=== PATIENT | female | born 2000 | race Caucasian/White ===

== ENCOUNTER 2022-03-31 18:54 | Emergency (ER) | payer BC, SELFPAY ==
[2022-03-31 19:10] VITALS: BP 111/75; PULSE 107; RESP 18; TEMP 36.9; O2SAT 100; BMI 18.6
[2022-03-31 20:13] LABS: Appearance Urine Clear (Clear); Bilirubin Urine Negative (Negative); Blood Urine Negative (Negative); Color Urine Yellow (Yellow); Glucose Urine Negative (Negative); Ketones Urine Negative (Negative); Leukocyte Esterase Urine Negative (Negative); Nitrite Urine Negative (Negative); Protein Urine Negative (Negative); Urobilinogen Urine 0.2 (0.2-1.0)
--- NOTE | 2022-03-31 20:36 | CRLHL7_ITS ---
For Patients: As a result of the Century Cures Act, medical imaging exams and procedure reports are released immediately into your electronic medical record. You may view this report before your referring provider. If you have questions, please contact your health care provider. INDICATION: Abdominal pain TECHNIQUE: CT abdomen and pelvis acquired with fifty-six cc Isovue 370 IV contrast. COMPARISON: None. FINDINGS: Lower chest: The visualized lower lungs are aerated. No pleural or pericardial effusion. ABDOMEN: Liver: Normal enhancement. No focal suspicious hepatic lesions. Gallbladder and biliary: Contractor gallbladder normal caliber bile ducts. Spleen: Normal size and enhancement. Pancreas: Normal enhancement without peripancreatic inflammatory changes or ductal dilatation. Adrenal glands: Normal adrenal glands. Kidneys and ureters: Normal enhancement. No radio-opaque calculi. No hydroureteronephrosis. GI tract: The stomach is relatively decompressed. Normal caliber small and large bowel loops. Normal appendix. Vascular structures: Normal caliber abdominal aorta. Lymph nodes: No lymphadenopathy in the abdomen or pelvis by size criteria. Peritoneum: Trace free fluid in the pelvis, likely physiologic. No free air. PELVIS: Genitourinary system: Normal urinary bladder. Large left adnexum cystic lesion measuring up to 11.1 by 7.9 cm and measuring near simple fluid attenuation. This abuts and causes mild mass effect on the uterine fundus as well as the left ovary. Age-appropriate right ovary. SKELETAL STRUCTURES AND SOFT TISSUES: No suspicious lytic or blastic lesions. IMPRESSION: 1. No obstruction. No hydroureteronephrosis. Normal appendix. 2. Large left adnexum cystic focus measuring up to 11 centimeters causing mass effect on the adjacent uterus and left ovary. While this may reflect a left ovarian cyst, further characterization is recommended with dedicated non emergent pelvic MRI with and without intravenous contrast. Please note that all CT scans at this facility use dose modulation, iterative reconstruction, and/or weight-based dosing when appropriate to reduce radiation dose to as low as reasonably achievable. Dictated by Magdaleno Francis MD @ 03/31/2022 9:33:28 PM (Electronically Signed)
--- NOTE | 2022-03-31 20:38 | ED_ITS ---
HPI - Abdominal Pain General Chief Complaint: Abdominal Pain Stated Complaint: Abdominal Pain Time Seen by Provider: 03/31/22 20:20 History of Present Illness HPI narrative: This 21-year-old female comes in with her mother reporting crampy abdominal pain episodes. These have been happening over the past couple months but of worsened recently. Today she was on the floor curled up crying in pain. She does not report any nausea, vomiting, fever, dysuria, or diarrhea. She states that the episodes of pain can last for a minute or so or for hours. She also reports that certain movements or position can reproduce this pain. Related Data Home Medications Medication Instructions Recorded Confirmed Advil 03/31/22 Allergies Allergy/AdvReac Type Severity Reaction Status Date / Time No Known Drug Allergies Allergy Verified 03/31/22 19:15 Review of Systems Status of ROS Reports: 10 or more systems reviewed and unremarkable except as noted in History and below Narrative Constitutional: No fevers, no weight gain or loss. Eyes: No discharge. No vision changes. HENT: No congestion, no sore throat, no ear pain. Cardiovascular: No chest pain, no palpitations. Respiratory: No shortness of breath, no wheezes, no cough. Gastrointestinal: No vomiting, no diarrhea. Crampy abdominal pain as described above. Genitourinary: No dysuria, no hematuria. Musculoskeletal: Normal range of motion. Skin: No rashes, no pruritis. Neurological: No dizziness, weakness, sensory change, speech change. Endo/Heme/Allergies: No bruising or bleeding. No polydipsia. Pysch: no suicidality, no anxiety, no insomnia. All other systems reviewed and are negative. PFSH [facility] Social History Smoking Status: Former smoker How often do you have a drink containing alcohol: never AUDIT-C Alcohol total score: 0 Non-prescribed substance use: denies use Exam Narrative: Exam Narrative: Constitutional: Well-developed, well-nourished, no acute distress. HEENT: Normocephalic, atraumatic. Neck: Normal range of motion. Nontender. Supple. Heart: Regular. No murmurs. Normal rate. Intact distal pulses. Lungs: Clear to auscultation. No chest discomfort. No wheezes, rhonchi, or rales. Abdomen: Normal bowel sounds. Tenderness is localized over the left lower abdomen in the area of her ovary. No rebound tenderness. Genitalia: Deferred. Back: No midline tenderness. Normal range of motion. Extremities: Normal range of motion. No injury. Skin: Intact. No rash. Warm. No erythema or pallor. Neurologic: No altered sensation. No weakness. Alert and oriented. Psychiatric: No suicidality. No anxiety or depression. No insomnia. Nursing notes and vitals signs are reviewed. Const: Vital Signs, click to edit/add: Vital Signs - 24 hr 03/31/22 19:10 03/31/22 21:24 Temperature 98.5 F Pulse Rate [Left P ulse Oximeter] 107 H 89 Respiratory Rate 18 Blood Pressure [Ri ght Upper Arm] 111/75 123/69 Pulse Oximetry 100 100 Oxygen Delivery Me thod Room Air Course Vital Signs Vital signs: Initial Vital Signs Temperature 98.5 F 03/31/22 19:10 Temperature Source Oral 03/31/22 19:10 Pulse Rate 107 H 03/31/22 19:10 Respiratory Rate 18 03/31/22 19:10 Blood Pressure 111/75 03/31/22 19:10 Blood Pressure Mean 87 03/31/22 19:10 Blood Pressure Position Sitting 03/31/22 19:10 Pulse Oximetry 100 03/31/22 19:10 Vital Signs Temperature 98.5 F 03/31/22 19:10 Pulse Rate 107 H 03/31/22 19:10 Respiratory Rate 18 03/31/22 19:10 Blood Pressure 111/75 03/31/22 19:10 Pulse Oximetry 100 03/31/22 19:10 Temperature 98.5 F 03/31/22 19:10 Pulse Rate 89 03/31/22 21:24 Respiratory Rate 18 03/31/22 19:10 Blood Pressure 123/69 03/31/22 21:24 Pulse Oximetry 100 03/31/22 21:24 Oxygen Delivery Method 03/31/22 21:24 MDM - Abdominal Pain MDM Narrative Medical decision making narrative: This patient comes in with episodes of abdominal pain over the past couple months. Today she had very severe pain that lasted for a while and then completely resolved. An IV was established and labs were drawn. These returned with normal results. CT imaging of the abdomen and pelvis shows evidence of a large simple cyst in the pelvis measuring 11 x 7 cm. I contacted the [facility] physician on-call who will be happy to see the patient in clinic for further management. At the time of discharge the patient appears safe for outpatient management. The treatment plan is reviewed along with written and verbal return precautions. Reasons to return and the importance of close followup were also reviewed. She received prescriptions for Toradol and [place]. Lab Data Labs: Lab Results 03/31/22 03/31/22 03/31/22 Range/Units 19:20 20:45 20:45 WBC 6.97 (4.50-11.00) K/uL RBC 4.77 (4.00-5.20) m/uL Hgb 14.7 (12.0-16.0) gm/dL Hct 41.7 (33.0-51.0) % MCV 87 (80-100) fL MCH 31 (26-34) pg MCHC 35 (32-36) gm/dL RDW Coeff of Ti 11.5 (11.5-15.5) % Plt Count 285 (140-440) K/uL Neut % (Auto) 66.3 (42.0-72.0) % Lymph % (Auto) 25.3 (20-44) % Dare % (Auto) 6.6 (0.0-11.0) % Eos % (Auto) 1.1 (0.0-7.0) % Baso % (Auto) 0.6 (0.0-3.0) % Neut # (Auto) 4.62 (1.7-7.0) K/uL Lymph # (Auto) 1.76 (0.90-2.90) K/uL Dare # (Auto) 0.50 (0.00-0.90) K/UL Eos # (Auto) 0.08 (0.00-0.50) K/uL Baso # (Auto) 0.04 (0.00-0.30) K/uL Sodium 139 (135-149) mmol/L Potassium 3.6 (3.6-5.1) mmol/L Chloride 106 (96-114) mmol/L Carbon Dioxide 24 (20-32) mmol/L BUN 8 (5-24) mg/dL Creatinine 0.7 (0.6-1.2) mg/dL Estimated Creat Clear 106.45 Estimated GFR 128 ml/min Glucose 95 (60-115) mg/dL Calcium 9.6 (8.7-10.8) mg/dL C-Reactive Protein < 0.5 L (0.5-1.0) mg/dL HCG, Qual Negative (Negative) Urine Color Yellow (Yellow) Urine Appearance Clear (Clear) Urine pH 7.0 (5.0-8.5) Ur Specific [place] 1.020 (1.000-1.030) Urine Protein Negative (Negative) Urine Glucose (UA) Negative (Negative) Urine Ketones Negative (Negative) Urine Blood Negative (Negative) Urine Nitrite Negative (Negative) Urine Bilirubin Negative (Negative) Urine Urobilinogen 0.2 (0.2-1.0) Ur Leukocyte Esterase Negative (Negative) Imaging Data CT scan - abdomen: Radiologist's impression: 1. No obstruction. No hydroureteronephrosis. Normal appendix. 2. Large left adnexum cystic focus measuring up to 11 centimeters causing mass effect on the adjacent uterus and left ovary. While this may reflect a left ovarian cyst, further characterization is recommended with dedicated non emergent pelvic MRI with and without intravenous contrast. Discharge Plan Discharge Clinical Impression: Ovarian cyst Patient Disposition: Home w/ Parent or Adult Condition: Stable Additional Instructions: Follow-up with OBGYN clinic. Call for appointment. Use medication as needed and directed. Return if worsening symptoms happen. Prescriptions: No Action Advil Follow Up/Referrals: Provider,Not a Local [Primary Care Provider] - Stand Alone Forms: [employer] Info Instructions
[2022-03-31 20:49] LABS: HCG Qualitative* Negative (Negative)
[2022-03-31 20:58] LABS: Basophils Absolute Auto 0.04 K/uL (0.00-0.30); Basophils Percent Auto 0.6 % (0.0-3.0); Eosinophils Absolute Auto 0.08 K/uL (0.00-0.50); Eosinophils Percent Auto 1.1 % (0.0-7.0); Hematocrit 41.7 % (33.0-51.0); Hemoglobin* 14.7 gm/dL (12.0-16.0); Immature Granulocytes Abs Auto 0.01 K/uL (0.00-0.30); Immature Granulocytes Pct Auto 0.1 %; Lymphocytes Absolute Auto 1.76 K/uL (0.90-2.90); Lymphocytes Percent Auto 25.3 % (20-44); Mean Corpuscular HGB Conc 35 gm/dL (32-36); Mean Corpuscular Hemoglobin 31 pg (26-34); Mean Corpuscular Volume 87 fL (80-100); Monocytes Percent Auto 6.6 % (0.0-11.0); Neutrophils Absolute Auto 4.62 K/uL (1.7-7.0); Neutrophils Percent Auto 66.3 % (42.0-72.0); Platelet Count* 285 K/uL (140-440); RDW Coefficient of Variation % 11.5 % (11.5-15.5); Red Blood Count 4.77 m/uL (4.00-5.20); White Blood Count* 6.97 K/uL (4.50-11.00)
[2022-03-31 21:06] LABS: Slide Review Reflex No
[2022-03-31 21:24] VITALS: BP 123/69; PULSE 89; O2SAT 100
[2022-03-31 21:32] LABS: Chloride* 106 mmol/L (96-114); Potassium* 3.6 mmol/L (3.6-5.1); Sodium* 139 mmol/L (135-149)
[2022-03-31 21:35] LABS: Blood Urea Nitrogen* 8 mg/dL (5-24); Carbon Dioxide* 24 mmol/L (20-32); Creatinine* 0.7 mg/dL (0.6-1.2); Est. Creatinine Clearance* 106.45; Estimated Glomerular Filt Rate 128 ml/min
[2022-03-31 21:36] LABS: Calcium* 9.6 mg/dL (8.7-10.8); Glucose* 95 mg/dL (60-115)
[2022-03-31 21:39] LABS: C Reactive Protein* < 0.5 mg/dL (0.5-1.0)
== END 2022-03-31 22:45 | disposition home or self-care (01) ==
PROVIDERS: Emergency Provider Emergency Medicine Emergency Medical Services
DX: N83.202 Unspecified ovarian cyst, left side (principal)
CPT/HCPCS: 36415; 74177; 80048; 81003; 84703; 85025; 86140; 99284; Q9967

== ENCOUNTER 2022-04-01 13:11 | Inpatient (IN) | payer BC, SELFPAY ==
[2022-04-01] VITALS (16 sets, daily range): BP systolic 100–120; BP diastolic 57–89; PULSE 69–128; RESP 12–16; TEMP 36.3–37; O2SAT 93–100; BMI 18.6
--- NOTE | 2022-04-01 14:38 | ED_ITS ---
HPI - Abdominal Pain General Chief Complaint: Abdominal Pain Stated Complaint: Ovarian Cyst, Pain is worse and vomiting Time Seen by Provider: 04/01/22 13:43 History of Present Illness HPI narrative: This 21-year-old female returns after a visit last night where was discovered that she had a large simple cyst in her abdomen apparently on the left ovary. The cyst measured 7 x 11 cm. She was having occasions of pain related to this and so was discharged home after consulting with OBGYN physician on-call. She received prescriptions for [place] and Toradol. She took these medicines but states that she did not sleep well through the night and has had some episodes of severe pain with nausea and vomiting. She returns today because her symptoms have worsened. Related Data Home Medications Medication Instructions Recorded Confirmed Advil 03/31/22 hydrocodone-acetaminophen .ROUTE 04/01/22 ketorolac 10 mg tablet 10 mg PO Q8H 04/01/22 04/01/22 Allergies Allergy/AdvReac Type Severity Reaction Status Date / Time No Known Drug Allergies Allergy Verified 03/31/22 19:15 Review of Systems Status of ROS Reports: 10 or more systems reviewed and unremarkable except as noted in History and below Narrative Constitutional: No fevers, no weight gain or loss. Eyes: No discharge. No vision changes. HENT: No congestion, no sore throat, no ear pain. Cardiovascular: No chest pain, no palpitations. Respiratory: No shortness of breath, no wheezes, no cough. Gastrointestinal: Episodes of severe abdominal pain with nausea and vomiting. Genitourinary: No dysuria, no hematuria. Musculoskeletal: Normal range of motion. Skin: No rashes, no pruritis. Neurological: No dizziness, weakness, sensory change, speech change. Endo/Heme/Allergies: No bruising or bleeding. No polydipsia. Pysch: no suicidality, no anxiety, no insomnia. All other systems reviewed and are negative. PFSH PFSH Social History Smoking Status: Former smoker How often do you have a drink containing alcohol: never AUDIT-C Alcohol total score: 0 Non-prescribed substance use: denies use Exam Narrative: Exam Narrative: Constitutional: Well-developed, well-nourished. HEENT: Normocephalic, atraumatic. Neck: Normal range of motion. Nontender. Supple. Heart: Regular. No murmurs. Tachycardia. Intact distal pulses. Lungs: Clear to auscultation. No chest discomfort. No wheezes, rhonchi, or rales. Abdomen: Normal bowel sounds. Diffuse tenderness in the lower abdomen. Genitalia: Deferred. Back: No midline tenderness. Normal range of motion. Extremities: Normal range of motion. No injury. Skin: Intact. No rash. Warm. No erythema or pallor. Neurologic: No altered sensation. No weakness. Alert and oriented. Psychiatric: No suicidality. No anxiety or depression. No insomnia. Nursing notes and vitals signs are reviewed. Const: Vital Signs, click to edit/add: Vital Signs - 24 hr 04/01/22 14:06 04/01/22 15:07 04/01/22 15:30 Temperature 98.6 F Pulse Rate 69 93 Pulse Rate [Pulse Oximeter] 128 H Blood Pressure [Ri ght Upper Arm] 120/89 Pulse Oximetry 98 100 99 Oxygen Delivery Me thod Room Air Course Vital Signs Vital signs: Initial Vital Signs Temperature 98.6 F 04/01/22 14:06 Temperature Source Temporal Artery Scan 04/01/22 14:06 Pulse Rate 128 H 04/01/22 14:06 Blood Pressure 120/89 04/01/22 14:06 Blood Pressure Mean 99 04/01/22 14:06 Blood Pressure Position Sitting 04/01/22 14:06 Pulse Oximetry 98 04/01/22 14:06 Oxygen Delivery Method 04/01/22 14:06 Vital Signs Temperature 98.6 F 04/01/22 14:06 Pulse Rate 128 H 04/01/22 14:06 Blood Pressure 120/89 04/01/22 14:06 Pulse Oximetry 98 04/01/22 14:06 Oxygen Delivery Method 04/01/22 14:06 Temperature 98.6 F 04/01/22 14:06 Pulse Rate 93 04/01/22 15:30 Blood Pressure 120/89 04/01/22 14:06 Pulse Oximetry 99 04/01/22 15:30 Oxygen Delivery Method 04/01/22 14:06 MDM - Abdominal Pain MDM Narrative Medical decision making narrative: This patient has recurring and worsening abdominal pain related to a large simple cyst in her left lower quadrant. She returns stating that the pain medicine did not help her through the night and she has had some episodes of intractable pain with nausea and vomiting. I contacted the OBGYN physician on- call, Dr. Cazares, who will come in to arrange for surgical removal of the cyst. The patient may be having intermittent torsion episodes. An IV was established where the patient did receive Dilaudid 0.5 mg and Zofran 4 mg. Discharge Plan Discharge Clinical Impression: Ovarian cyst Patient Disposition: Admitted As Inpatient Condition: Unchanged
[2022-04-01] MEDS: ONDANSETRON 2 MG/ML inj 4 MG IVP (14:54)
[2022-04-01] MEDS: HYDROmorphone 0.5 mg/0.5 ml inj IVP ×2 (14:54→22:15)
--- NOTE | 2022-04-01 15:45 | P.OBCN_ITS ---
OB - CN: HPI Date of Consult Date Seen: 04/01/22 Consult date: 04/01/22 Requesting Physician: Raffaele Dean MD Primary Care Provider: Kayley Diaz MD Consult Narrative Narrative: The patient is a 21 year old [facility] Social History Smoking Status: Former smoker How often do you have a drink containing alcohol: never AUDIT-C Alcohol total score: 0 Non-prescribed substance use: denies use Meds Home Medications and Allergies Home Medications Medication Instructions Recorded Confirmed Type Advil 03/31/22 History hydrocodone-acetaminophen .ROUTE 04/01/22 History ketorolac 10 mg tablet 10 mg PO Q8H 04/01/22 04/01/22 History Allergies Allergy/AdvReac Type Severity Reaction Status Date / Time No Known Drug Allergies Allergy Verified 03/31/22 19:15 OB - H&P: Exam Physical Exam: Vital signs: Temp Pulse BP Pulse Ox O2 Del Method 98.6 F 69 120/89 100 04/01/22 14:06 04/01/22 15:07 04/01/22 14:06 04/01/22 15:07 04/01/22 14:06
--- NOTE | 2022-04-01 15:46 | P.GYNCN_ITS ---
DIRECTOR OF INSTITUTIONAL RESEARCH - CN: HPI Data of Consult Date Seen: 04/01/22 Requesting Physician: Tavo Walls MD Primary Care Provider: Kayley Diaz MD Consult Narrative Narrative: Vivi Whitehead is a 21 year old female seen by kind request of Dr. Larsen for evaluation of ovarian cyst. She was seen in the ER last night around 8:00 p.m. with complaint of severe pelvic pain. She reports that she has had pain intermittently for several months, but it has become more persistent and severe over time. It was severe enough last night to bring her to the ER. She received narcotic pain medicine and had a CT scan showing an 11 cm cyst in the right adnexal region, simple in appearance. She was treated with narcotics and pain improved. She was discharged with plan to follow up in clinic. However, upon discharge, pain secondarily worsened, and she developed nausea and vomiting. She has only had a couple sips of water today. She is using no contraceptives. [employer] history: G0 Menses have been erratic in cycle length and inconsistent in flow for many years. No history of sexually transmitted infection She is sexually active She is using no contraception cc:: CC: Review of Systems Narrative: No fever Positive for nausea and vomiting Positive for vaginal spotting Positive for erratic menses, occasionally heavy PFSH PFSH Surgical History (Updated 04/01/22 @ 15:50 by Leida Cazares MD) Arm fracture S/P tonsillectomy and adenoidectomy Wrist fracture Family History (Updated 04/01/22 @ 15:51 by Leida Cazares MD) Other Diabetes Osteopenia Rheumatoid arthritis Social History (Updated 04/01/22 @ 15:51 by Leida Cazares MD) Narrative: She lives in [place] with her mother, who accompanies her today. She graduated from [employer]. She will go to [employer] for University in the fall. She does not smoke or use recreational drugs. She drinks alcohol infrequently. Smoking Status: Former smoker How often do you have a drink containing alcohol: never AUDIT-C Alcohol total score: 0 Non-prescribed substance use: denies use Meds Home Medications and Allergies Home Medications Medication Instructions Recorded Confirmed Type Advil 03/31/22 History hydrocodone-acetaminophen .ROUTE 04/01/22 History ketorolac 10 mg tablet 10 mg PO Q8H 04/01/22 04/01/22 History Allergies Allergy/AdvReac Type Severity Reaction Status Date / Time No Known Drug Allergies Allergy Verified 03/31/22 19:15 DIRECTOR OF INSTITUTIONAL RESEARCH - Exam Physical Exam: Vital signs: Temp Pulse BP Pulse Ox O2 Del Method 98.6 F 69 120/89 100 04/01/22 14:06 04/01/22 15:07 04/01/22 14:06 04/01/22 15:07 04/01/22 14:06 Narrative: Physical exam: General: No acute distress Psych: Alert and oriented x3, full affect HEENT: Normocephalic, atraumatic Neck: No cervical adenopathy, no thyromegaly Heart: Regular rate and rhythm, no murmur rub or gallop Lungs: Clear to auscultation bilaterally Abdomen: Hypoactive bowel sounds, rigid, only able to relax abdominal musculature with great difficulty, tenderness to palpation thereafter Skin: No lesions or rashes Lower extremities: No edema or erythema Pelvic exam: Deferred to OR DIRECTOR OF INSTITUTIONAL RESEARCH - Results Labs Labs: Labs from last night: CBC: White count 6.97, hemoglobin 14.7, platelets 285 Normal chemistries HCG negative COVID negative today at 3:[address] of abdomen and pelvis 9:30 p.m. on 03/31/2022: Genitourinary system: Normal urinary bladder. Large left adnexum cystic lesion measuring up to 11.1 by 7.9 cm and measuring near simple fluid attenuation. This abuts and causes mild mass effect on the uterine fundus as well as the left ovary. Age-appropriate right ovary. Imaging CT scan - pelvis: Attestation: I have reviewed the pertinent imaging results. My impression: As above Assessment and Plan Assessment and plan (1) Ovarian cyst: Status: Acute Assessment and Plan: Large left ovarian cyst, with 2 visits to the ER in the last 24 hours for pain. Likely intermittent ovarian torsion. Plan I recommended laparoscopic ovarian cystectomy for management. We discussed risks of procedure, including bleeding/hemorrhage, infection, damage to internal organs, possible loss of involved ovary, risks of anesthesia. We discussed likely postoperative restrictions and precautions. Consent form was reviewed with and signed by patient.
[2022-04-01 15:54] LABS: SARS PCR* Negative SARS-CoV-2 (Negative)
[2022-04-01] MEDS: LACTATED RINGERS 1000 ML 1,000 ML 100 ML IV ×3 (16:41→19:48)
[2022-04-01] MEDS: BUPIVACAINE 0.25% 30 ML 10 ML INJECTION (17:15)
--- NOTE | 2022-04-01 19:45 | W.ANESCHARGE ---
Anesthesia Charges Start Date/Time Anesthesia Start Date: 04/01/22 Anesthesia Start Time: 16:41 Stop Date/Time Anesthesia Stop Date: 04/01/22 Anesthesia Stop Time: 19:42 Summary Emergency: Yes
--- NOTE | 2022-04-01 20:19 | P.GYNPRC_ITS ---
Procedure Note Date Seen: 04/01/22 Procedure Details: PREOPERATIVE DIAGNOSIS: Left adnexal cyst, abdominal pain POSTOPERATIVE DIAGNOSIS: Left ovarian cyst with torsion of left fallopian tube PROCEDURE: Laparoscopic left ovarian cystectomy SURGEON: Leida Cazares MD ANESTHESIA: General IV FLUIDS: 1000 mL crystalloid URINE OUTPUT: 200 mL EBL: 100 mL FINDINGS: 1. Upon pelvic exam under anesthesia, vagina and cervix were normal in appearance. 2. Upon laparoscopy, survey of the upper abdomen revealed a normal appearance to the inferior edge of the liver, gallbladder and stomach. Bowels were grossly normal appearance, as was the appendix. Survey of the pelvis revealed a large left ovarian cyst filling the pelvis, lying on top of the uterus. The left fallopian tube was wrapped 2 times around the base of the infundibulopelvic ligament on the left. The left ovarian cyst itself was approximately 12 cm in greatest dimension and appeared to be simple, containing clear fluid. There was normal appearance to the uterus. After left tube was untwisted, it appeared healthy. Right tube and ovary were normal in appearance. The cul-de-sac and bladder reflection were normal in appearance. 3. There was a 1 cm umbilical hernia noted at time of laparoscopic entry. COMPLICATIONS: None PROCEDURE IN DETAIL: Patient was taken to the operating room with IV running. She was positioned in dorsal lithotomy position with her legs fully supported in Yellofin stirrups. General anesthesia was administered. She was prepped and draped in the usual sterile fashion. Bimanual exam was performed for the above- noted findings. Speculum was inserted. A single-toothed uterine manipulator was inserted through the cervix into the lower uterine segment, and affixed to the anterior cervical lip. Speculum was removed. Lakhani catheter was placed. Patient's legs were placed in neutral position. Attention was turned to patient's abdomen. The infraumbilical area was infiltrated with small amount of Marcaine. An infraumbilical incision was made with a scalpel and carried through to the underlying layer of fascia with a hemostat. Umbilical hernia was noted at that time. The 5 mm Fios Kii trocar was assembled with laparoscope within, and insufflator attached. While tenting up the abdomen manually, the trocar was passed through the anterior abdominal wall, through the small umbilical hernia and into the peritoneal cavity. Trocar was removed. Pneumoperitoneum was achieved. Survey of abdomen and pelvis revealed the above-noted findings. Three additional port sites were created. The first was in the patient's left lower quadrant, just superior medial to the left ASIS. The second was a hand's breath superior to and slightly medial to the first. The third was in the patient's right lower quadrant, just superior medial to the right ASIS. Each was infiltrated with small amount of Marcaine prior to incision. An 11 mm incision was made at the left lower quadrant port site, and a 5 mm incision was made at the other 2 sites, making sure the large vessels were out of harm's way. An 11 mm Fios Kii port was inserted at the left lower quadrant port site, and a 5 mm Fios Kii port was inserted at the other 2 sites, under direct visualization and without complication. The balloon on each of the four ports was inflated, holding each in place. The left fallopian tube was untwisted from the left infundibulopelvic ligament. The ovarian cortex was incised sharply, and the cortex was dissected bluntly away from the underlying cyst. The cyst was ruptured in the process. The cyst wall was then grasped and was painstakingly peeled from the surrounding ovarian cortex, releasing clear fluid during this time. Their portions of the cyst that were densely adherent to the surrounding ovarian stroma. Ultimately, the Thunderbeat device was used to divide the remaining cyst wall from the ovary, taking only a small portion of ovarian cortex in the process. This was removed from the abdomen and sent to pathology for further analysis. The bed of dissection in the left ovarian cortex was oozing diffusely. This was painstakingly addressed with monopolar cautery, then coated with Rosmery hemostatic agent. All instruments were removed from the abdomen and the abdomen was desufflated for 5 minutes to confirm that there was no heavy bleeding from the dissection site. Findings were reassuring upon reestablishment of pneumoperitoneum. The left lower quadrant port was removed. The fascia of the site was closed with 2 interrupted stitches of 0 Vicryl with the help of a Raymundo-Rachel device. The umbilical port was also removed, and the underlying fascia was closed with a single stitch of 0 Vicryl at that site. The remaining ports were removed after pneumoperitoneum was released. The skin of each port site was closed with a subcuticular stitch of 4 0 Vicryl. Surgical glue was applied above that. Patient's legs were again placed in lithotomy position. The uterine manipulator was removed and hemostasis of the cervix was noted. Lakhani catheter was removed. Patient tolerated procedure well and was taken to recovery area in stable condition.
[2022-04-01] MEDS: KETOROLAC 30 MG/ML inj IVP (21:09)
--- NOTE | 2022-04-01 22:59 | PC.NURSE ---
Shift [id number]- Patient arrives from [facility] at approximately 2015. She is very sleepy (rouses and falls right back to sleep) and denies pain for the first couple of hours. She is slightly more wakeful now and admits to pain- PRN pain medication given with relief. Parents in the room and supportive. Ice pack to abdomen. Lap sites are open to air and no drainage. Bowel sounds are hypoactive after arrival. She is tolerating ice chips- has been offered to advance diet, but has not. She has not voided or gotten out of bed yet. MD contacted- see orders and admission status update.
[2022-04-01] MEDS: OXYCODONE 5 MG TABLET PO (23:31)
[2022-04-02] VITALS (18 sets, daily range): BP systolic 85–121; BP diastolic 43–74; PULSE 64–114; RESP 12–18; TEMP 36.2–37.3; O2SAT 95–100
[2022-04-02] MEDS: HYDROmorphone 0.5 mg/0.5 ml inj IVP ×2 (00:48→17:45)
--- NOTE | 2022-04-02 05:53 | PC.NURSE ---
[id number]: patient tolerated crackers and water PO w/o nausea. appears to have slept soundly overnight. pain improved with medication, see EMAR. lap sites c/d/i with small amount old blood.
[2022-04-02] MEDS: OXYCODONE 5 MG TABLET PO ×5 (06:23→23:53)
[2022-04-02] MEDS: ACETAMINOPHEN 500 MG TABLET 1000 MG PO ×2 (06:53→17:16)
--- NOTE | 2022-04-02 08:26 | PM.GYNDS1 ---
DS: Providers Provider Date Seen: 04/05/22 Primary care physician: Kayley Diaz MD Admitting Clinician: Leida Cazares MD Date of Discharge: 04/05/22 DS: Diagnosis Discharge Diagnosis (1) Ovarian cyst: Status: Acute (2) Torsion of fallopian tube: Status: Acute (3) S/P laparoscopy: Status: Acute Problem details: laparoscopic ovarian cystectomy 04/01/22, complicated by intraperitoneal bleeding and need for reoperation for left salpingo-oophorectomy (4) Postoperative pain: Status: Acute LIBRARIAN HELPER-Discharge Summary Hospital Course Hospital Course Narrative: Patient is a 21 year old female admitted on 04/01/2022 for laparoscopic ovarian cystectomy. She had presented twice to the ER with complaint of abdominal pain within a preceding 24 hours. She was found to have a large left adnexal cyst on CT of the pelvis. Indication for surgery: Abdominal pain and ovarian cyst. Procedure performed: Laparoscopic left ovarian cystectomy Intraoperative findings were notable for large left ovarian cyst, simple, containing clear fluid. Left fallopian tube was wrapped twice around the infundibulopelvic ligament. Normal uterus, right ovary, right fallopian tube. She had uncontrolled pain and precipitous drop of hemoglobin on POD#1. CT of abdomen and pelvis showed intraperitoneal hematoma. She had repeat laparoscopy with left salpingo-oophorectomy and evacuation of pelvic hematoma on 04/02/22. She was found to be anemic with a Hb of 8 on POD #1/2, increasing to 8.5 later in the day. She still struggled with pain control. On POD#2/3, she had nausea and continuing difficulties with pain. It was noted that she had not had BM since before admission. She was ultimately treated with Bisacodyl suppository. Vitals have been stable. She has remained afebrile. Time Spent with Patient Time attestation: Total time spent providing and/or coordinating discharge services: Time spent: Less than 30 minutes LIBRARIAN HELPER - Exam Physical Exam: Vital signs: Temp Pulse Resp BP Pulse Ox O2 Del Method 97.7 F 81 16 99/57 L 97 04/02/22 03:00 04/02/22 03:00 04/02/22 03:00 04/02/22 03:00 04/02/22 03:00 04/02/22 03:00 Narrative: General: Pleasant, no acute distress Heart: Regular rate and rhythm, no murmur or gallop Lungs: Clear to auscultation bilaterally Abdomen: Laparoscopic port sites clean, dry, and intact. Normoactive bowel sounds in all 4 quadrants. Appropriately tende Lower extremities: No edema or erythema LIBRARIAN HELPER - DS: Data Data Completed and Pending Labs on day of discharge: Labs from last 24 hours 04/01/22 04/01/22 16:33 15:05 SARS-CoV-2 (PCR) Negative SARS-CoV-2 Blood Type A Positive Antibody Screen NEGATIVE Procedures Procedures: Procedures Operation Date: 04/01/22 17:15 Actual Procedure Side Surgeon p Lap LEFT Ovarian Cystectomy Left Leida Cazares MD Discharge Plan Discharge Disposition: Home, Self-Care Date of Admission: 04/02/22 17:21 Primary Care Provider: Kayley Diaz Condition: Unchanged Anticipated Discharge Date/Time: 04/05/22 19:44 Discharge Medications: New acetaminophen 500 mg Tablet 1,000 mg PO Q6H PRN (Reason: Pain) Qty: 0 0RF ibuprofen 600 mg tablet 600 mg PO Q6H PRNQty: 60 0RF oxycodone 5 mg Tablet 5 mg PO Q4H PRN (Reason: 4 OR GREATER ON PAIN SCALE) Qty: 25 0RF Folitab 105 mg iron- 500 mg-800 mcg tablet extended release 1 tab PO DAILY Qty: 20 0RF Rx Instructions: administer on an empty stomach Discontinued Advil ketorolac 10 mg tablet 10 mg PO Q8H hydrocodone-acetaminophen [[place]] .ROUTE Consulting provider completed their portion of the discharge: Yes Patient Education: Ovarian Cyst Removal (DC), Exploratory Laparoscopy (DC) Activity Detail: No lifting greater than 20 lbs for 4 weeks. Do not submerge incisions under water for [address] taking narcotic pain medicines. Discharge Diet: Regular Follow Up Appointments: Leida Cazares MD [Staff Physician] - 05/01/22 10:45 am (Call if you have any questions.) Provider,Not a Local [Referring] - Forms: Work/School Release
[2022-04-02] MEDS: MORPHINE 4 MG/ML INJ IVP (12:43)
[2022-04-02] MEDS: ONDANSETRON 2 MG/ML inj 4 MG IVP (12:43)
[2022-04-02 13:57] LABS: Basophils Absolute Auto 0.03 K/uL (0.00-0.30); Basophils Percent Auto 0.3 % (0.0-3.0); Eosinophils Absolute Auto 0.04 K/uL (0.00-0.50); Eosinophils Percent Auto 0.4 % (0.0-7.0); Hematocrit 28.6 % (33.0-51.0); Immature Granulocytes Abs Auto 0.02 K/uL (0.00-0.30); Immature Granulocytes Pct Auto 0.2 %; Lymphocytes Percent Auto 19.6 % (20-44); Mean Corpuscular HGB Conc 35 gm/dL (32-36); Mean Corpuscular Hemoglobin 31 pg (26-34); Mean Corpuscular Volume 90 fL (80-100); Monocytes Percent Auto 7.6 % (0.0-11.0); Neutrophils Absolute Auto 7.47 K/uL (1.7-7.0); Neutrophils Percent Auto 71.9 % (42.0-72.0); Platelet Count* 216 K/uL (140-440); RDW Coefficient of Variation % 11.9 % (11.5-15.5); Red Blood Count 3.19 m/uL (4.00-5.20); White Blood Count* 10.38 K/uL (4.50-11.00)
[2022-04-02 14:00] LABS: Slide Review Reflex No
[2022-04-02] MEDS: IBUPROFEN 600 MG TABLET PO (14:04)
--- NOTE | 2022-04-02 15:05 | CRLHL7_ITS ---
For Patients: As a result of the Century Cures Act, medical imaging exams and procedure reports are released immediately into your electronic medical record. You may view this report before your referring provider. If you have questions, please contact your health care provider. Indication: Intraperitoneal bleeding after laparoscopy Technique: Contrast CT abdomen and pelvis Comparison: CT 03/31/2022 Findings: Heart size normal. Lung bases are clear. Large amount of intraperitoneal free air likely postsurgical. Liver pancreas gallbladder adrenal glands unremarkable. Spleen unremarkable kidneys unremarkable. Large volume abdominal pelvic fluid slightly dense most likely reflecting hemorrhage. Minimal subcutaneous air within the left lower abdominal wall most likely postsurgical. Large hematoma in the central posterior pelvis which displaces the uterus anteriorly. Evaluation for active hemorrhage is limited given the suboptimal phase of imaging. There is a grouping of slight density in the right pelvis seen on series 2, image 111 which is indeterminate could be related tangle of vessels active hemorrhage not completely excluded however similar density was seen on the preoperative CT scan from 03/31. Impression: 1. Large volume abdominal pelvic hemorrhage. Large hematoma in the posterior central pelvis which displaces the uterus anteriorly. Evaluation for active hemorrhage limited by phase of contrast imaging. Serpiginous densities in the right pericolic gutter could be related to tangle of vessels active hemorrhage not completely excluded however similar rounded density seen on the pre-surgical CT scan. Results called to Dr. Cazares on 04/02/22 at 5:30pm. Please note that all CT scans at this facility use dose modulation, iterative reconstruction, and/or weight-based dosing when appropriate to reduce radiation dose to as low as reasonably achievable. Dictated by Talita Loo MD @ 04/02/2022 5:30:39 PM (Electronically Signed)
--- NOTE | 2022-04-02 18:24 | P.GYNPN_ITS ---
COPRA SAMPLER - A/P Assessment and plan (1) S/P laparoscopy: Problem details: laparoscopic ovarian cystectomy 04/01/22 Status: Acute (2) Intraperitoneal hemorrhage: Status: Acute Assessment and Plan: With new anemia, hemoglobin 10.0. Currently with stable vital signs. I recommended evacuation of pelvic hematoma and likely removal of left ovary, which I suspect is the cause of bleeding. A We discussed risks of procedure, likely postoperative restrictions and recovery. Consent form reviewed with and signed by patient. (3) Anemia due to acute blood loss: Status: Acute Postoperative Procedures: Procedures Operation Date: 04/01/22 17:15 Actual Procedure Side Surgeon p Juan LEFT Ovarian Cystectomy Left Leida Cazares MD Operation Date: 04/02/22 19:15 <No data on this case meets the specified criteria> Time Spent With Patient Time: Total time spent is greater than 50% in coordination of care (as documented) at patient's floor/unit and/or counseling patient: Time with patient: less than 15 minutes COPRA SAMPLER- PN:Subj Post-Op Subjective Time Seen by Provider: 17:30 Date Seen: 04/02/22 Post Operative Details: Post-operative day number 0: status post laparoscopic left ovarian cystectomy Vivi was initially to be discharged this morning, after eating breakfast and ambulating. However, she was unable to tolerate ambulation. She had increase in pain and felt lightheaded. Thereafter, CBC was ordered, showing her hemoglobin to have dropped from 14.7 on the day before surgery to 10.[address] of abdomen and pelvis was ordered, notable for large blood clot in the pelvis. The radiologist reports that she is uncertain if there is active bleeding or not. Vivi was able to eat at 10:30 a.m. this morning. She has not had nausea or vomiting. She has been using a combination of oxycodone and ibuprofen for pain. COPRA SAMPLER-PN: Obj Exam Physical Exam: Vital signs: Temp Pulse Resp BP Pulse Ox O2 Del Method 97.7 F 103 H 16 91/57 L 98 04/02/22 03:00 04/02/22 07:00 04/02/22 07:00 04/02/22 07:00 04/02/22 07:00 04/02/22 07:00 Narrative: Physical exam: Vitals as noted above. General: No acute distress Psych: Alert and oriented x 3, full affect HEENT: Normocephalic, atraumatic Abdomen: Tender diffusely, rigid, normoactive bowel sounds COPRA SAMPLER - PN: Obj Data Labs Labs: Laboratory Results - last 24 hr 04/02/22 13:52 WBC 10.38 RBC 3.19 L Hgb 10.0 L Hct 28.6 L MCV 90 MCH 31 MCHC 35 RDW Coeff of Ti 11.9 Plt Count 216 Neut % (Auto) 71.9 Lymph % (Auto) 19.6 L [place] % (Auto) 7.6 Eos % (Auto) 0.4 Baso % (Auto) 0.3 Neut # (Auto) 7.47 H Lymph # (Auto) 2.00 [place] # (Auto) 0.80 Eos # (Auto) 0.04 Baso # (Auto) 0.03
[2022-04-02] MEDS: LACTATED RINGERS 1000 ML 1,000 ML 100 ML IV ×3 (18:45→19:51)
[2022-04-02] MEDS: CEFAZOLIN 1 GM in 0.9 % SODIUM CHLORIDE Mini-bag 100 ML IVPB (18:50)
--- NOTE | 2022-04-02 19:50 | SUR.OPER ---
PATIENT QUESTIONS ANSWERED SATISFACTORILY PREOPERATIVELY. PATIENT BROUGHT TO OR #4 PER BED. Patient positioned supine on OR #4 bed for the intubation. Pt. then moved into the lithotomy position for the procedure. Perioperative team padded and tucked the arms at pt. side in a neutral position. Final approval of positioning by surgeon.
[2022-04-02] MEDS: BUPIVACAINE 0.25% 30 ML 10 ML INJECTION (20:01)
[2022-04-02] MEDS: SILVER NITRATE APPLICATOR 1 EACH STICK..EA. TOPICAL (20:09)
--- NOTE | 2022-04-02 20:26 | W.ANESCHARGE ---
Anesthesia Charges Start Date/Time Anesthesia Start Date: 04/02/22 Anesthesia Start Time: 18:44 Stop Date/Time Anesthesia Stop Date: 04/02/22 Anesthesia Stop Time: 20:25 Summary Emergency: Yes
--- NOTE | 2022-04-02 21:12 | PC.NURSE ---
Nursing Care Hours: [id number] Pt this shift cooperative with cares. Pain rated 6-7/10 even with IV and oral pain med options. Attempt to stand while using pillow to splint, pt did not tolerate well. Pain severe, pt began trembling and crying. Unable to stand up without holding onto wall for support. C/o increased pain on L side. Pulse is tachy. Surgeon made aware of pt pain and not tolerating walking. New orders put in, CBC showed decreased blood count and hemoglobin. Pt sent for CT and found to have post op internal bleeding. Taken to surgery at 1830. Surgeon explained to pt and family that L ovary may need to be removed. Pt sad and crying and nervous about going back to surgery. Therapeutic communication and listening provided. Consent signed.
--- NOTE | 2022-04-02 22:23 | P.GYNPRC_ITS ---
Procedure Note Date Seen: 04/02/22 Procedure Details: PREOPERATIVE DIAGNOSIS: Postoperative bleeding after left ovarian cystectomy, with pelvic hematoma noted on CT of pelvis POSTOPERATIVE DIAGNOSIS: Pelvic hematoma, bleeding from left ovary PROCEDURE: Laparoscopic left salpingo-oophorectomy, evacuation of pelvic hematoma SURGEON: Leida Cazares MD ANESTHESIA: General IV FLUIDS: 1000 mL crystalloid URINE OUTPUT: 200 mL EBL: 400 mL, including clotted blood in the pelvis and the ovary FINDINGS: 1. Upon pelvic exam under anesthesia, vagina and cervix were normal in appearance. 2. Upon laparoscopy, bowels were grossly normal appearance. Survey of the pelvis revealed pelvic hematoma in the cul-de-sac, anterior to the uterus, and within the left ovarian cortex. The cortex was bleeding near the infundibulopelvic ligament. The left tube was adherent to the left ovary along its distal end. Uterus was normal appearance. Right tube and ovary were normal in appearance. The cul-de-sac and bladder reflection were normal in appearance after blood was evacuated. COMPLICATIONS: None PROCEDURE IN DETAIL: Patient was taken to the operating room with IV running. She was positioned in dorsal lithotomy position with her legs fully supported in Yellofin stirrups. General anesthesia was administered. She was given a single dose of IV cefazolin in preoperative prophylaxis. She was prepped and draped in the usual sterile fashion. Bimanual exam was performed for the above-noted fi ndings. Speculum was inserted. A single-toothed uterine manipulator was inserted through the cervix into the lower uterine segment, and affixed to the anterior cervical lip. Speculum was removed. Lakhani catheter was placed. Patient's legs were placed in neutral position. Attention was turned to patient's abdomen. The patient had had 4 port sites from her surgery last night. Three of these were used again. The surgical glue at the umbilical port site, the left lower quadrant port site, and the left lateral port site were peeled away as much as possible. The suture material at the skin of each site was cut. The fascial stitches in the umbilical and left lower quadrant port site were also cut. The small umbilical hernia was thus opened, revealing the peritoneal cavity. The 5 mm Fios Kii trocar was assembled with laparoscope within, and insufflator attached. While tenting up the abdomen manually, the trocar was passed through the umbilical hernia into the peritoneal cavity. Trocar was removed. Pneumoperitoneum was achieved. Survey of abdomen and pelvis revealed the above-noted findings. The balloon tip of this trocar was inflated. An 11 mm Fios Kii trocar was inserted in left lower quadrant port site, and a 5 mm inserted at the left lateral abdominal site. Each of these was inserted at this site of yesterday's port placement, under direct visualization without complication. The balloons on the tip of each were inflated. Laparoscopic suction was used to remove the pelvic hematoma and most of the clotted blood within the ovary. Given that ovary was still bleeding, I opted to proceed with oophorectomy. Left fallopian tube was removed due to its adherence to the left ovary. The left ovary was held away from the pelvic sidewall. The Thunderbeat device was used to coagulate and transect the infundibulopelvic ligament. Dissection was carried laterally to medially through the broad ligament, until the left cornua was reached. The left tube was divided at the cornua, as was the left utero-ovarian ligament. The specimen was placed anterior to the uterus. An Endo-Catch bag was inserted through the left lower quadrant port site, and the specimen was placed within the bag. The bag was pulled up through the left lower quadrant port site. Port was removed. The specimen was then removed piecemeal from the bag, ultimately allowing removal of the bag through the port site. The specimen was sent to pathology. The left lower quadrant port was again inserted and balloon tip inflated. The pelvis was copiously irrigated with sterile saline. Hemostasis was noted along the left infundibulopelvic ligament and remnant of the broad ligament. Pneumoperitoneum was released and the balloon tips of all port sites were deflated. The ports were removed. The fascia of the left lower quadrant port site and the umbilical port site were closed with a single stitch of 0 Vicryl. The skin of each port site was closed with a subcuticular stitch of 4 0 Vicryl. Surgical glue was applied above this. Finally, the patient's legs were placed back in lithotomy position. The single- toothed uterine manipulator was removed from the cervix, and hemostasis of the cervix was achieved with silver nitrate. The Lakhani catheter was removed from the patient's bladder. Patient tolerated procedure well and was taken to recovery area in stable condition.
[2022-04-02] MEDS: LACTATED RINGERS 1000 ML 1,000 ML 125 ML IV (22:59)
[2022-04-02 23:22] LABS: Basophils Percent Auto 0.1 % (0.0-3.0); Eosinophils Percent Auto 0.1 % (0.0-7.0); Hematocrit 27.2 % (33.0-51.0); Hemoglobin* 9.5 gm/dL (12.0-16.0); Immature Granulocytes Pct Auto 1.2 %; Lymphocytes Percent Auto 7.6 % (20-44); Mean Corpuscular HGB Conc 35 gm/dL (32-36); Mean Corpuscular Hemoglobin 31 pg (26-34); Mean Corpuscular Volume 90 fL (80-100); Monocytes Percent Auto 2.8 % (0.0-11.0); Neutrophils Percent Auto 88.2 % (42.0-72.0); Platelet Count* 199 K/uL (140-440); RDW Coefficient of Variation % 11.8 % (11.5-15.5); Red Blood Count 3.03 m/uL (4.00-5.20); Slide Review Reflex No; White Blood Count* 11.15 K/uL (4.50-11.00)
[2022-04-03] VITALS (10 sets, daily range): BP systolic 98–130; BP diastolic 48–89; PULSE 76–114; RESP 16–18; TEMP 36.7–37.1; O2SAT 97–99
[2022-04-03] MEDS: KETOROLAC 30 MG/ML inj IVP ×2 (02:31→08:45)
[2022-04-03] MEDS: SODIUM CHLORIDE 0.9 % (FLUSH) 10 ML SYRINGE 5 ML IVF ×3 (02:34→20:16)
[2022-04-03] MEDS: OXYCODONE 5 MG TABLET PO ×4 (06:46→21:55)
--- NOTE | 2022-04-03 08:30 | PC.NURSE ---
END OF SHIFT NOTE: PT PLEASANT AND COOPERATIVE WITH CARES. BACK TO FLOOR 2054. LAP SITES INTACT AND [place]. PT REPORTS PAIN 4/10 TO ABDOMEN WITH RELIEF FROM ICE PACK AND PRN PAIN MEDICATION (SEE eMAR), PT SPLINTING WITH PILLOW WITH ACTIVITY. ADVANCED TO REG DIET AND TOLERATED WELL. AMBULATES WITH SBA TO BATHROOM. PT VOIDING WELL.
[2022-04-03] MEDS: LACTATED RINGERS 1000 ML 1,000 ML 125 ML IV (08:45)
--- NOTE | 2022-04-03 08:57 | PM.GYNPNPO ---
WORKERS COMPENSATION CLAIMS EXAMINER - A/P Assessment and plan (1) S/P laparoscopy: Problem details: laparoscopic ovarian cystectomy 04/01/22 Status: Acute (2) Intraperitoneal hemorrhage: Status: Acute (3) Anemia due to acute blood loss: Status: Acute Plan Postoperative Review: - Admitted for: Ovarian torsion - Surgical procedure: Laparoscopic left ovary cystectomy on 04/01 complicated by continued intraabdominal bleeding S this the taping laparoscopic left salpingo-oophorectomy with evacuation of pelvic hematoma on April 02. - Skin incision: 4 laparoscopic port sites - Closure: Sutures Acute blood loss anemia - Estimated blood loss: 1st surgery: 100cc , 2nd surgery 400cc - Urine output: adequate 1.08 cc/kg/hr - Preop Hgb: 14.7 - Postop Hgb: 10.0 --> 9.5 --> 8.0 --> 8.5 - Benign abdominal exam today. However, uncontrolled pain while ambulating Postoperative care: - Diet: Advance as tolerated - Fluid: Encourage oral intake - Activity: Encourage ambulation and incentive spirometry - Pain: Oxycodone, Tylenol and Ibuprofen - DVT prophylaxis: SCDs and TEDs when not ambulating Dispo: Patient is POD#1. Need the following milestones: Pain control and ambulating without assist. Anticipate discharge POD#2. Postoperative Procedures: Procedures Operation Date: 04/01/22 17:15 Actual Procedure Side Surgeon p Lap LEFT Ovarian Cystectomy Left Leida Cazares MD Operation Date: 04/02/22 19:15 Actual Procedure Side Surgeon p Laparoscopic left salpingo-oophorectomy with evacuation of pelvic hematoma Left Leida Cazares MD Time Spent With Patient Time: Total time spent is greater than 50% in coordination of care (as documented) at patient's floor/unit and/or counseling patient: Time with patient: 25 - 35 minutes WORKERS COMPENSATION CLAIMS EXAMINER- PN:Subj Post-Op Subjective Time Seen by Provider: 08:00 Date Seen: 04/03/22 Post Operative Details: Overnight patient complains of fatigue. Her pain has improved since her second surgery but she still scare to move in anticipating of pain. She is tolerating a regular diet. She has passed flatus. She is not yet ambulating without difficulty. States she's doesn't want to due to the abdominal pain. Will ambulate with assist and then continue to monitor. She is urinating without padilla. Patient denies chest pain, SOB, n/v, or headache. She denies dizziness but haven't ambulated since her surgery. She had soft pressure overnight and tachycardia. Her abdomen is soft with moderate amount of tenderness still. Her hgb is stable currently (hgb 8@0616 and 8.5@1302) WORKERS COMPENSATION CLAIMS EXAMINER-PN: Obj Exam Physical Exam: Vital signs: Temp Pulse Resp BP Pulse Ox O2 Del Method 99.1 F 77 16 98/48 L 99 04/02/22 23:00 04/03/22 03:00 04/03/22 01:00 04/03/22 03:00 04/03/22 03:00 04/03/22 03:00 Narrative: Physical exam: General: No acute distress. Sleepy Psych: Alert and oriented x3, full affect HEENT: Normocephalic, atraumatic Heart: Regular rate and rhythm, no murmur rub or gallop Lungs: Clear to auscultation bilaterally Abdomen: Normoactive bowel sounds, soft, still very tender in lower quandrant, some guarding, no rebound Incision: 4 port sites clean, dry and intact. No spreading erythema Lower extremities: No edema or erythema Pelvic exam: Deferred WORKERS COMPENSATION CLAIMS EXAMINER - PN: Obj Data Labs Labs: Laboratory Results - last 24 hr 04/02/22 04/02/22 04/03/22 13:52 23:10 06:16 WBC 10.38 11.15 H RBC 3.19 L 3.03 L Hgb 10.0 L 9.5 L 8.0 L Hct 28.6 L 27.2 L MCV 90 90 MCH 31 31 MCHC 35 35 RDW Coeff of Ti 11.9 11.8 Plt Count 216 199 Neut % (Auto) 71.9 88.2 H Lymph % (Auto) 19.6 L 7.6 L [place] % (Auto) 7.6 2.8 Eos % (Auto) 0.4 0.1 Baso % (Auto) 0.3 0.1 Neut # (Auto) 7.47 H 9.80 H Lymph # (Auto) 2.00 0.80 L [place] # (Auto) 0.80 0.30 Eos # (Auto) 0.04 0.00 Baso # (Auto) 0.03 0.00
[2022-04-03 13:09] LABS: Hemoglobin* 8.5 gm/dL (12.0-16.0)
--- NOTE | 2022-04-03 15:26 | PC.NURSE ---
Pt rating her pain 4-6 out of 10. Treated with toradol IV and oxycodone 5 mg PO on day shift. Maintenance IVF continues at 125. Parents supportive at bedside. Eval by Dr. Akins in am and again mid-shift. Repeat Hgb 8.5 @ 13:25. Adequate I & O. Pt anxious secondary to increased activity, walked to BR and once in hallway. Report to Sara ARAUJO for eveing shift.
[2022-04-03] MEDS: IBUPROFEN 400 MG TABLET 800 MG PO (17:27)
[2022-04-03] MEDS: LORazepam 2 MG/ML inj IVP (19:22)
[2022-04-03] MEDS: ACETAMINOPHEN 500 MG TABLET 1000 MG PO (19:23)
[2022-04-03] MEDS: ONDANSETRON 2 MG/ML inj 4 MG IVP (20:16)
[2022-04-03] MEDS: SIMETHICONE 80 MG TAB.CHEW 160 MG PO (21:55)
[2022-04-04] MEDS: OXYCODONE 5 MG TABLET PO ×4 (02:01→15:56)
[2022-04-04 03:00] VITALS: BP 98/58; PULSE 95; RESP 14; TEMP 36.7; O2SAT 98
--- NOTE | 2022-04-04 07:06 | PC.NURSE ---
Pt is alert and oriented x3. Pt reports pain 4/10 pain managed with PRN medications. Pt has lap sites that are open to air with scant?amounts of dried blood around them.?Pt is up IND in room and tolerating a regular diet. ?
[2022-04-04] MEDS: IBUPROFEN 400 MG TABLET 800 MG PO ×3 (08:21→18:27)
[2022-04-04 08:23] VITALS: BP 97/64; PULSE 69; PULSE 97; RESP 14; RESP 16; TEMP 36.8; O2SAT 98
--- NOTE | 2022-04-04 08:37 | PC.NURSE ---
LATE ENTRY ORDER: INPATIENT ON 04/02/22 AT 1721 CANCELLED IN ERROR. RE-ENTERED 04/03/22 9178 BY GOURMET COFFEE ATTENDANT.
--- NOTE | 2022-04-04 10:43 | P.GYNPN_ITS ---
SURVEY FIELD TECHNICIAN - A/P Assessment and plan (1) S/P laparoscopy: Problem details: laparoscopic ovarian cystectomy 04/01/22, complicated by intraperitoneal bleeding and need for reoperation for left salpingo-oophorectomy Status: Acute Assessment and Plan: She has had a prolonged inpatient course secondary to difficulties with pain management. Her pain medicines are optimized at this time. I hope for discharge later this afternoon. Given that she has not had a bowel movement for a few days, I favor empiric treatment with bisacodyl suppository. (2) Intraperitoneal hemorrhage: Status: Acute Assessment and Plan: Resolved (3) Anemia due to acute blood loss: Status: Acute Assessment and Plan: Improvement of hemoglobin from 8 to 8.5 over the course of the day yesterday. I will start ferrous sulfate once nightly today. Postoperative Procedures: Procedures Operation Date: 04/01/22 17:15 Actual Procedure Side Surgeon p Lap LEFT Ovarian Cystectomy Left Leida Cazares MD Operation Date: 04/02/22 19:15 Actual Procedure Side Surgeon p Laparoscopic left salpingo-oophorectomy with evacuation of pelvic hematoma Left Leida Cazares MD Time Spent With Patient Time: Total time spent is greater than 50% in coordination of care (as documented) at patient's floor/unit and/or counseling patient: Time with patient: less than 15 minutes SURVEY FIELD TECHNICIAN- PN:Subj Post-Op Subjective Date Seen: 04/04/22 Interval history: Vivi continues to struggle with pain control. She has not used IV morphine for the last day. She reports severe pain upon rising out of bed and she relies on nurses to help her to the bathroom. She is prescribed Tylenol 1 g every 6 hours, ibuprofen 800 mg every 8 hours, and oxycodone 5-10 mg every 4 hours. She is tolerating regular diet. She thinks she is passing flatus. She has not had a bowel movement since hospitalization. She did ambulate in the hallways twice yesterday. Post Operative Details: Post-operative day # 3: status post laparoscopic left ovarian cystectomy Postoperative day #2: status post laparoscopic left salpingo-oophorectomy, evacuation of pelvic hematoma SURVEY FIELD TECHNICIAN-PN: Obj Exam Physical Exam: Vital signs: Temp Pulse Resp BP Pulse Ox O2 Del Method 98.2 F 97 16 97/64 98 04/04/22 08:23 04/04/22 08:23 04/04/22 08:23 04/04/22 08:23 04/04/22 08:23 04/04/22 08:23 Narrative: General: Sleeping when I enter. Pleasant, no acute distress Heart: Regular rate and rhythm, no murmur or gallop Lungs: Clear to auscultation bilaterally Abdomen: Normoactive bowel sounds in all 4 quadrants. Laparoscopic incisions clean, dry, and intact. Soft, not distended, diffusely tender, no rebound, voluntary guarding. Lower extremities: No edema or erythema SURVEY FIELD TECHNICIAN - PN: Obj Data Labs Labs: Laboratory Results - last 24 hr 04/03/22 13:02 Hgb 8.5 L
[2022-04-04] MEDS: ONDANSETRON 2 MG/ML inj 4 MG IVP ×2 (11:17→17:08)
[2022-04-04 11:19] VITALS: BP 110/68; PULSE 97; RESP 16; TEMP 36.6; O2SAT 97
--- NOTE | 2022-04-04 14:19 | PC.NURSE ---
Patient pleasant. Withdrawn from activity. Strongly encouraged throughout shift to ambulate - pt refusing. Pt educated regarding suppository ordered by MD, refusing as this time as she wants to try to have a bowel movement on her own. Encouraged to shower this evening, pt agreed. Pain 5-6/10, controlled with PRN Oxycodone & scheduled Ibuprofen. Lap sites CDI.
[2022-04-04 15:00] VITALS: BP 110/64; PULSE 89; RESP 16; TEMP 36.9; O2SAT 97
[2022-04-04] MEDS: SODIUM CHLORIDE 0.9 % (FLUSH) 10 ML SYRINGE 5 ML IVF ×2 (17:08→21:09)
[2022-04-04] MEDS: polyethylene glycoL 3350 17 GM PACK PO (18:27)
--- NOTE | 2022-04-04 19:34 | PM.GYNPNPO ---
INSULATION AND FLOORING ASSEMBLER - A/P Assessment and plan (1) S/P laparoscopy: Problem details: laparoscopic ovarian cystectomy 04/01/22, complicated by intraperitoneal bleeding and need for reoperation for left salpingo-oophorectomy Status: Acute Assessment and Plan: Prolonged hospitalization due to suboptimal pain control. I suspect some of this is related to constipation. After emesis, I again recommended suppository, and patient agrees. I also recommended walking the halls tonight. I anticipate discharge tomorrow. (2) Intraperitoneal hemorrhage: Status: Acute (3) Anemia due to acute blood loss: Status: Acute Assessment and Plan: I will send her home with iron supplement . Postoperative Procedures: Procedures Operation Date: 04/01/22 17:15 Actual Procedure Side Surgeon p Lap LEFT Ovarian Cystectomy Left Leida Cazares MD Operation Date: 04/02/22 19:15 Actual Procedure Side Surgeon p Laparoscopic left salpingo-oophorectomy with evacuation of pelvic hematoma Left Leida Cazares MD Time Spent With Patient Time: Total time spent is greater than 50% in coordination of care (as documented) at patient's floor/unit and/or counseling patient: Time with patient: less than 15 minutes INSULATION AND FLOORING ASSEMBLER- PN:Subj Post-Op Subjective Time Seen by Provider: 19:34 Date Seen: 04/04/22 Interval history: Vivi has not moved around much today due to pain. She has felt nauseated all day, and has been given antiemetics. She is tolerating a regular diet, and is in the process of eating a cheeseburger and fries when I enter. She thinks she is passing flatus. She has not had BM in 5 days. I wrote for a Bisacodyl suppository, which she declined. She is currently drinking a dose of Miralax. Post Operative Details: Post-operative day number []: status post [] INSULATION AND FLOORING ASSEMBLER-PN: Obj Exam Physical Exam: Vital signs: Temp Pulse Resp BP Pulse Ox O2 Del Method 98.5 F 89 16 110/64 97 04/04/22 15:00 04/04/22 15:00 04/04/22 15:00 04/04/22 15:00 04/04/22 15:00 04/04/22 15:00 Narrative: General: Pleasant, no acute distress. However, she has emesis of about 600 cc in the middle of our conversation Abdomen: Normoactive bowel sounds in all 4 quadrants. Laparoscopic incisions clean, dry, and intact. Soft, not distended, diffusely tender, no rebound, minimal guarding.
--- NOTE | 2022-04-04 20:01 | PC.NURSE ---
End of Shift ([id number]): Patient pleasant and cooperative. Afebrile. Rating pain in abdomen 5-7/10 and PRN Oxycodone given x1. C/o intermittent nausea, PRN Zofran given x1. Encouraged fluid intake and activity. Up for walk in hallway x1. Patient declining suppository at this time, updated MD and order for Miralax.
[2022-04-04 20:18] VITALS: BP 94/66; PULSE 97; RESP 16; TEMP 36.7; O2SAT 99
[2022-04-04] MEDS: bisacodyL 10 MG SUPP.RECT PR (20:24)
[2022-04-04] MEDS: PROMETHAZINE 25 MG/ML INJ 12.5 MG IV (21:09)
[2022-04-04 23:00] VITALS: BP 90/56; PULSE 74; RESP 14; TEMP 36.9; O2SAT 99
[2022-04-05 03:00] VITALS: BP 94/55; PULSE 65; RESP 14; TEMP 36.8; O2SAT 98
--- NOTE | 2022-04-05 05:42 | PC.NURSE ---
Pt is alert and oriented x3. Pt reports pain 4/10, PRN medications and cold and heat therapy?discussed and offered, pt refused stating ?I?m ok?. Pt denies SOB, Chest pain, and N/V. Pt has lap sites that are open to air.?Pt is up IND in room and tolerating a regular diet. ???
[2022-04-05 07:40] VITALS: BP 106/63; PULSE 84; RESP 16; TEMP 36.9; O2SAT 98
[2022-04-05] MEDS: IBUPROFEN 400 MG TABLET 800 MG PO (07:43)
[2022-04-05] MEDS: FERROUS SULFATE 325 MG TABLET PO (07:43)
--- NOTE | 2022-04-05 08:56 | P.DS_ITS ---
DS: Providers Provider Date Seen: 04/05/22 Date of admission: 04/02/22 17:21 Primary care physician: Kayley Diaz MD Admitting Clinician: Leida Cazares MD Attending Physician on discharge: Jeny Childers MD Date of Discharge: 04/05/22 DS: Diagnosis Discharge Diagnosis (1) S/P laparoscopy: Status: Acute Problem details: laparoscopic ovarian cystectomy 04/01/22, complicated by intraperitoneal bleeding and need for reoperation for left salpingo-oophorectomy (2) Anemia due to acute blood loss: Status: Acute (3) Torsion of fallopian tube: Status: Acute POWERED BRIDGE SPECIALIST-Discharge Summary Hospital Course Hospital Course Narrative: Patient is a 21 year old admitted on 04/01/2022 for a large ovarian cyst and suspected ovarian torsion. Indication for initial surgery on 04/01/2022: ovarian torsion. Surgery was laparoscopic left ovarian cystectomy. Intraoperative findings were notable for: 1. Upon pelvic exam under anesthesia, vagina and cervix were normal in appearance.? 2. Upon laparoscopy, survey of the upper abdomen revealed a normal appearance to the inferior edge of the liver, gallbladder and stomach.? Bowels were grossly normal appearance, as was the appendix.? Survey of the pelvis revealed a large left ovarian cyst filling the pelvis, lying on top of the uterus.? The left fallopian tube was wrapped 2 times around the base of the infundibulopelvic ligament on the left.? The left ovarian cyst itself was approximately 12 cm in greatest dimension and appeared to be simple, containing clear fluid.? There was normal appearance to the uterus.? After left tube was untwisted, it appeared healthy.? Right tube and ovary were normal in appearance. The cul-de-sac and bladder reflection were normal in appearance.? 3. There was a 1 cm umbilical hernia noted at time of laparoscopic entry. Posteroperatively, she developed bleeding and was found on CT scan to have a large pelvic hematoma. She then had a second laparoscopic surgery on 04/02/2022, to remove the left ovary and the pelvic hematoma. Postoperative course has been uneventful. Vitals have been stable. She has remained afebrile. Today, on postoperative day 3, she reports the pain is well controlled. She has been able to ambulate Without difficulty. She is tolerating regular diet. She is passing flatus. Lakhani catheter has been removed, and she is voiding without difficulty. She has a mild headache. Time Spent with Patient Time attestation: Total time spent providing and/or coordinating discharge services: Time spent: Less than 30 minutes POWERED BRIDGE SPECIALIST - Exam Physical Exam: Vital signs: Temp Pulse Resp BP Pulse Ox O2 Del Method 98.3 F 65 14 94/55 L 98 04/05/22 03:00 04/05/22 03:00 04/05/22 03:00 04/05/22 03:00 04/05/22 03:00 04/05/22 03:00 Constitutional: Constitutional: no acute distress and thin Routine Respiratory Exam: Respiratory: Present CTA bilaterally Routine Cardiovascular Exam: Cardiovascular: Present RRR Routine Abdominal Exam: Abdominal: Present normal bowel sounds and soft; Absent tenderness Detailed Abdominal Exam: Comments: Incisions clean, dry, intact POWERED BRIDGE SPECIALIST - DS: Data Procedures Procedures: Procedures Operation Date: 04/01/22 17:15 Actual Procedure Side Surgeon p Lap LEFT Ovarian Cystectomy Left Leida Cazares MD Operation Date: 04/02/22 19:15 Actual Procedure Side Surgeon p Laparoscopic left salpingo-oophorectomy with evacuation of pelvic hematoma Left Leida Cazares MD Discharge Plan Discharge Disposition: Home, Self-Care Date of Admission: 04/02/22 17:21 Attending Provider on Discharge: Jeny Childers Primary Care Provider: Kayley Diaz Condition: Unchanged Anticipated Discharge Date/Time: 04/05/22 19:44 Discharge Medications: New acetaminophen 500 mg Tablet 1,000 mg PO Q6H PRN (Reason: Pain) Qty: 0 0RF ibuprofen 600 mg tablet 600 mg PO Q6H PRNQty: 60 0RF oxycodone 5 mg Tablet 5 mg PO Q4H PRN (Reason: 4 OR GREATER ON PAIN SCALE) Qty: 25 0RF Folitab 105 mg iron- 500 mg-800 mcg tablet extended release 1 tab PO DAILY Qty: 20 0RF Rx Instructions: administer on an empty stomach Discontinued Advil ketorolac 10 mg tablet 10 mg PO Q8H hydrocodone-acetaminophen [[place]] .ROUTE Discharge Orders: Discharge Order (Routine); Ordered 04/05/22 Ordered By: Jeny Childers Consulting provider completed their portion of the discharge: Yes Patient Education: Ovarian Cyst Removal (DC), Exploratory Laparoscopy (DC) Activity Detail: No lifting greater than 20 lbs for 4 weeks. Do not submerge incisions under water for [address] while taking narcotic pain medicines. Discharge Diet: Regular Follow Up Appointments: Leida Cazares MD [Staff Physician] - 05/01/22 10:45 am (Call if you have any questions.) Provider,Not a Local [Referring] - Forms: Work/School Release
[2022-04-05] MEDS: ACETAMINOPHEN 500 MG TABLET 1000 MG PO (09:02)
== END 2022-04-05 10:55 | disposition home or self-care (01) | DRG 513 ==
LOC: ED 15:56 → SS 16:03 → MEDSURG 22:48 → SS 04-02 17:45 → MEDSURG 04-02 17:45
PROVIDERS: Obstetrics & Gynecology; Admitting Provider Obstetrics & Gynecology; Emergency Provider Emergency Medicine Emergency Medical Services; PCP Family Medicine; Visit Provider Obstetrics & Gynecology
PROC: 0UB14ZZ Excision of Left Ovary, Percutaneous Endoscopic Approach (ICD-10-PCS; CPT 58662; principal; 2022-04-01 17:00)
PROC: 0UT64ZZ Resection of Left Fallopian Tube, Percutaneous Endoscopic Approach (ICD-10-PCS; CPT 49320; principal; 2022-04-02 19:00)
DX: N83.202 Unspecified ovarian cyst, left side (principal); N83.522 Torsion of left fallopian tube; R10.2 Pelvic and perineal pain; N99.820 Postprocedural hemorrhage of a genitourinary system organ or structure following a genitourinary system procedure; N99.840 Postprocedural hematoma of a genitourinary system organ or structure following a genitourinary system procedure; D62 Acute posthemorrhagic anemia
CPT/HCPCS: 00840; 36415; 74177; 85018; 85025; 86850; 86900; 86901; 87635; 88305; 88307; 99140; 99284; 99285; A9270; J0330; J0690; J1100; J1170; J1200; J1885; J2060; J2270; J2405; J2550; J2704; J2710; J3010; J3490; J7120; Q9967

== ENCOUNTER 2022-07-03 15:46 | Outpatient (CLI) | payer BC, SELFPAY | END 2022-07-03 15:47 | disposition home or self-care (01) | LOC: NFLDREF 07-04 09:35 | PROVIDERS: PCP Family Medicine; Referring Provider Family Medicine; Visit Provider Obstetrics & Gynecology | DX: N92.0 Excessive and frequent menstruation with regular cycle (principal); Z11.3 Encounter for screening for infections with a predominantly sexual mode of transmission | CPT/HCPCS: 87491; 87591 ==

== ENCOUNTER 2022-07-12 13:07 | Emergency (ER) | payer BC, SELFPAY ==
[2022-07-12 13:14] VITALS: BP 113/61; PULSE 86; RESP 16; TEMP 37.4; O2SAT 97; BMI 21.0
--- NOTE | 2022-07-12 13:49 | CRLHL7_ITS ---
For Patients: As a result of the Century Cures Act, medical imaging exams and procedure reports are released immediately into your electronic medical record. You may view this report before your referring provider. If you have questions, please contact your health care provider. Indication: Lower abdominal pain since left oophorectomy in mass removal Technique: Volumetric multidetector CT images of the abdomen and pelvis were obtained after the administration of intravenous contrast. 64 cc Isovue 370 low osmolar intravenous contrast Comparison: CT abdomen and pelvis April 02, 2022 Findings: The lung bases are clear. The liver is normal in attenuation without intrahepatic biliary ductal dilatation. The portal vein is patent. There is contraction appearance of the gallbladder. There is no significant common biliary ductal dilatation or abrupt cut off. The spleen is normal in enhancement and size. The stomach and duodenum are grossly unremarkable. The pancreas is normal in enhancement without significant atrophy. The adrenal glands are unremarkable. The kidneys demonstrate preserved corticomedullary differentiation without evidence of obstructive uropathy. There is moderate to severe stool seen throughout the colon consistent with moderate constipation. There is distal colonic diverticulosis with questionable mild focal thickening and pericolonic inflammatory change which may represent trace diverticulitis. Otherwise, the enteric structures are grossly within normal limits. The appendix is unremarkable. There is no significant mesenteric, retroperitoneal, or pelvic sidewall lymph nodes. The aorta is nonaneurysmal. There is no significant atherosclerotic disease appreciated. The solid pelvic viscera are grossly unremarkable. There is no free fluid or free air. The anterior abdominal wall is intact without significant hernias. The lumbar vertebral body heights are grossly maintained in satisfactory alignment without evidence of displaced fracture, lytic or blastic lesion. Impression: Moderate to severe stool is seen throughout the colon which may represent constipation changes. Questionable subtle focal thickening and trace pericolonic inflammation of the distal descending colon which may represent mild focal diverticulitis/colitis. Correlate with history of clinical symptoms. This finding could also be artifactual due to nondistention. Otherwise, no evidence of pelvic abnormality status post left oophorectomy. Please note that all CT scans at this facility use dose modulation, iterative reconstruction, and/or weight-based dosing when appropriate to reduce radiation dose to as low as reasonably achievable. Dictated by Tristin Chin MD @ 07/12/2022 3:06:23 PM (Electronically Signed)
--- NOTE | 2022-07-12 13:53 | ED.ABDPAIN ---
HPI - Abdominal Pain General Chief Complaint: Abdominal Pain Stated Complaint: Pelvic pain post surgery April Time Seen by Provider: 07/12/22 13:12 History of Present Illness HPI narrative: This 22-year-old female comes in with her mother reporting persistent abdominal pain for the past 3 months or so. 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 This was removed surgically and complicated with a postop bleed. She eventually had another surgery during that same hospitalization to remove the fallopian tube and ovary on the left side. She arrives with normal vital signs. She has been to follow-up appointments with OBGYN and has reported some ongoing pain. Her pain is worsened recently. She states that it it is a crampy pain but does not completely go away when it improves. She does not report any vomiting, fever, dysuria, or altered bowel function. She does report some nausea symptoms when the pain intensifies. Related Data Previous Rx's Medication Instructions Recorded drospirenone 3 mg-ethinyl 1 tab PO QDAY #84 tabs 07/03/22 estradiol 0.02 mg tablet ketorolac 10 mg tablet 10 mg PO Q8H 5 days #15 tabs 07/12/22 ondansetron HCl 4 mg tablet 4 mg PO Q6H #10 tabs 07/12/22 Allergies Allergy/AdvReac Type Severity Reaction Status Date / Time No Known Drug Allergies Allergy Verified 07/12/22 14:26 Review of Systems Status of ROS Reports: 10 or more systems reviewed and unremarkable except as noted in History and below Narrative Constitutional: No fevers, no weight gain or loss. Eyes: No discharge. No vision changes. HENT: No congestion, no sore throat, no ear pain. Cardiovascular: No chest pain, no palpitations. Respiratory: No shortness of breath, no wheezes, no cough. Gastrointestinal: No vomiting, no diarrhea. Abdominal pain as described above. Genitourinary: No dysuria, no hematuria. Musculoskeletal: Normal range of motion. Skin: No rashes, no pruritis. Neurological: No dizziness, weakness, sensory change, speech change. Endo/Heme/Allergies: No bruising or bleeding. No polydipsia. Pysch: no suicidality, no anxiety, no insomnia. All other systems reviewed and are negative. PFSH PFSH Surgical History (Updated 04/04/22 @ 10:47 by Leida Cazares MD) Wrist fracture ?S62.109A - Fracture of unspecified carpal bone, unspecified wrist, initial encounter for closed fracture (ICD-10) Arm fracture ?S42.309A - Unspecified fracture of shaft of humerus, unspecified arm, initial encounter for closed fracture (ICD-10) S/P tonsillectomy and adenoidectomy ?Z90.89 - Acquired absence of other organs (ICD-10) Family History (Updated 04/01/22 @ 15:51 by Leida Cazares MD) Other Diabetes Osteopenia Rheumatoid arthritis Social History (Updated 04/01/22 @ 15:51 by Leida Cazares MD) Narrative: She lives in [place] with her mother, who accompanies her today. She graduated from [employer]. She will go to [employer] for University in the fall. She does not smoke or use recreational drugs. She drinks alcohol infrequently. Smoking Status: Never smoker How often do you have a drink containing alcohol: never AUDIT-C Alcohol total score: 0 Non-prescribed substance use: denies use Exam Narrative: Exam Narrative: Constitutional: Well-developed, well-nourished, no acute distress. HEENT: Normocephalic, atraumatic. Neck: Normal range of motion. Nontender. Supple. Heart: Regular. No murmurs. Normal rate. Intact distal pulses. Lungs: Clear to auscultation. No chest discomfort. No wheezes, rhonchi, or rales. Abdomen: Normal bowel sounds. Diffuse tenderness across the lower abdomen, left greater than right. No rebound tenderness. Genitalia: Deferred. Back: No midline tenderness. Normal range of motion. Extremities: Normal range of motion. No injury. Skin: Intact. No rash. Warm. No erythema or pallor. Neurologic: No altered sensation. No weakness. Alert and oriented. Psychiatric: No suicidality. No anxiety or depression. No insomnia. Nursing notes and vitals signs are reviewed. Const: Vital Signs, click to edit/add: Vital Signs - 24 hr 07/12/22 13:14 Temperature 99.4 F Pulse Rate [Right Pulse Oximeter] 86 Respiratory Rate 16 Blood Pressure [Ri ght Upper Arm] 113/61 Pulse Oximetry 97 Oxygen Delivery Me thod Room Air Course Vital Signs Vital signs: Initial Vital Signs Temperature 99.4 F 07/12/22 13:14 Temperature Source Temporal Artery Scan 07/12/22 13:14 Pulse Rate 86 07/12/22 13:14 Pulse Rhythm Regular 07/12/22 13:14 Pulse Strength 3+ Normal 07/12/22 13:14 Respiratory Rate 16 07/12/22 13:14 Blood Pressure 113/61 07/12/22 13:14 Blood Pressure Mean 78 07/12/22 13:14 Blood Pressure Position Sitting 07/12/22 13:14 Pulse Oximetry 97 07/12/22 13:14 Oxygen Delivery Method Room Air 07/12/22 13:14 Vital Signs Temperature 99.4 F 07/12/22 13:14 Pulse Rate 86 07/12/22 13:14 Respiratory Rate 16 07/12/22 13:14 Blood Pressure 113/61 07/12/22 13:14 Pulse Oximetry 97 07/12/22 13:14 Oxygen Delivery Method Room Air 07/12/22 13:14 Temperature 99.4 F 07/12/22 13:14 Pulse Rate 86 07/12/22 13:14 Respiratory Rate 16 07/12/22 13:14 Blood Pressure 113/61 07/12/22 13:14 Pulse Oximetry 97 07/12/22 13:14 Oxygen Delivery Method Room Air 07/12/22 13:14 MDM - Abdominal Pain MDM Narrative Medical decision making narrative: This patient comes in reporting abdominal pain as described above. I did discuss lab and imaging options with the patient and her mother and in a process of shared decision making they elected to have a repeat CT scan with IV contrast. This shows reassuring findings except there is evidence of moderate to severe amount of stool throughout the colon. The patient's lab results returned with normal findings. She states that her pain is rather crampy, that is it comes and goes. This would be more typical of her bowels causing these symptoms then. I did recommend fiber additive and prescribed Toradol and Zofran for further symptomatic relief. At the time of discharge the patient appears safe for outpatient management. The treatment plan is reviewed along with written and verbal return precautions. Reasons to return and the importance of close followup were also reviewed. Lab Data Labs: Lab Results 07/12/22 Range/Units 14:00 WBC 5.85 (4.50-11.00) K/uL RBC 4.71 (4.00-5.20) m/uL Hgb 13.1 (12.0-16.0) gm/dL Hct 39.8 (33.0-51.0) % MCV 85 (80-100) fL MCH 28 (26-34) pg MCHC 33 (32-36) gm/dL RDW Coeff of Ti 12.1 (11.5-15.5) % Plt Count 258 (140-440) K/uL Neut % (Auto) 67.0 (42.0-72.0) % Lymph % (Auto) 25.0 (20-44) % Eaton % (Auto) 6.3 (0.0-11.0) % Eos % (Auto) 1.2 (0.0-7.0) % Baso % (Auto) 0.3 (0.0-3.0) % Neut # (Auto) 3.92 (1.7-7.0) K/uL Lymph # (Auto) 1.46 (0.90-2.90) K/uL Eaton # (Auto) 0.40 (0.00-0.90) K/UL Eos # (Auto) 0.07 (0.00-0.50) K/uL Baso # (Auto) 0.02 (0.00-0.30) K/uL Sodium 139 (135-149) mmol/L Potassium 3.8 (3.6-5.1) mmol/L Chloride 106 (96-114) mmol/L Carbon Dioxide 24 (20-32) mmol/L BUN 12 (5-24) mg/dL Creatinine 0.8 (0.5-1.5) mg/dL Estimated Creat Clear 104.42 Estimated GFR 108 ml/min Glucose 110 (60-115) mg/dL Calcium 9.7 (8.4-10.6) mg/dL Imaging Data CT scan - abdomen: Radiologist's impression: Moderate to severe stool is seen throughout the colon which may represent constipation changes. Questionable subtle focal thickening and trace pericolonic inflammation of the distal descending colon which may represent mild focal diverticulitis/colitis. Correlate with history of clinical symptoms. This finding could also be artifactual due to nondistention. Otherwise, no evidence of pelvic abnormality status post left oophorectomy. Discharge Plan Discharge Clinical Impression: Abdominal pain Patient Disposition: Home, Self-Care Condition: Stable Additional Instructions: Use medications as needed and directed. A fiber additive is recommended. Follow up with MD or return if worsening. Prescriptions: New ondansetron HCl 4 mg tablet 4 mg PO Q6H Qty: 10 0RF ketorolac 10 mg tablet 10 mg PO Q8H 5 Days Qty: 15 0RF No Action drospirenone-ethinyl estradiol 3-0.02 mg tablet 1 tab PO QDAY Qty: 84 0RF Follow Up/Referrals: Kayley Diaz MD [Primary Care Provider] - Stand Alone Forms: Plisten Info Instructions
[2022-07-12 14:09] LABS: Basophils Absolute Auto 0.02 K/uL (0.00-0.30); Basophils Percent Auto 0.3 % (0.0-3.0); Eosinophils Absolute Auto 0.07 K/uL (0.00-0.50); Eosinophils Percent Auto 1.2 % (0.0-7.0); Hematocrit 39.8 % (33.0-51.0); Hemoglobin* 13.1 gm/dL (12.0-16.0); Immature Granulocytes Abs Auto 0.01 K/uL (0.00-0.30); Immature Granulocytes Pct Auto 0.2 %; Lymphocytes Absolute Auto 1.46 K/uL (0.90-2.90); Mean Corpuscular HGB Conc 33 gm/dL (32-36); Mean Corpuscular Hemoglobin 28 pg (26-34); Mean Corpuscular Volume 85 fL (80-100); Monocytes Percent Auto 6.3 % (0.0-11.0); Neutrophils Absolute Auto 3.92 K/uL (1.7-7.0); Platelet Count* 258 K/uL (140-440); RDW Coefficient of Variation % 12.1 % (11.5-15.5); Red Blood Count 4.71 m/uL (4.00-5.20); White Blood Count* 5.85 K/uL (4.50-11.00)
[2022-07-12 14:13] LABS: Slide Review Reflex No
[2022-07-12 14:21] LABS: Chloride* 106 mmol/L (96-114); Potassium* 3.8 mmol/L (3.6-5.1); Sodium* 139 mmol/L (135-149)
[2022-07-12 14:24] LABS: Blood Urea Nitrogen* 12 mg/dL (5-24); Carbon Dioxide* 24 mmol/L (20-32); Creatinine* 0.8 mg/dL (0.5-1.5); Est. Creatinine Clearance* 104.42; Estimated Glomerular Filt Rate 108 ml/min; Glucose* 110 mg/dL (60-115)
[2022-07-12 14:25] LABS: Calcium* 9.7 mg/dL (8.4-10.6)
== END 2022-07-12 15:42 | disposition home or self-care (01) ==
PROVIDERS: Emergency Provider Emergency Medicine Emergency Medical Services; PCP Family Medicine
DX: R10.9 Unspecified abdominal pain (principal)
CPT/HCPCS: 36415; 74177; 80048; 85025; 99284; 99285; Q9967

== ENCOUNTER 2023-04-14 18:47 | Emergency (ER) | payer OTHER, SELFPAY ==
[2023-04-14 18:57] VITALS: BP 117/68; PULSE 66; RESP 18; TEMP 36.3; O2SAT 99; BMI 21.5
[2023-04-14] MEDS: ONDANSETRON ODT 4 MG TAB PO (19:20)
--- NOTE | 2023-04-14 19:54 | ED.GENADULT ---
HPI - General Adult General Date Seen: 04/14/23 Chief complaint: Ear/Nose/Throat Problem Stated complaint: R Ear pain Time Seen by Provider: 04/14/23 18:50 Source: patient Mode of arrival: ambulatory Limitations: no limitations History of Present Illness HPI narrative: Patient is a 22-year-old female with no pertinent medical problems presenting to emergency department for ear pain. She has been having the symptoms the past few days and side urgent care couple days ago will start amoxicillin for otitis media. Pain in her right ear she states has been getting worse and occasionally radiates the left side. She also has pain when pulling on her right ear. She has notes she has been having associated nausea and lightheadedness also. She states she is feeling lightheaded right now. She has been eating and drinking normally though. She is also feeling nauseated at this time. Denies any fevers or chills. Denies abdominal pain, chest pain, shortness of breath, diarrhea, constipation, headache, confusion, vision changes, weakness, numbness. Related Data Home Medications Medication Instructions Recorded Confirmed amoxicillin 875 mg-potassium 1 tab PO BID 04/14/23 04/14/23 clavulanate 125 mg tablet Previous Rx's Medication Instructions Recorded drospirenone 3 mg-ethinyl 1 tab PO QDAY #84 tabs 02/15/23 estradiol 0.02 mg tablet Allergies Allergy/AdvReac Type Severity Reaction Status Date / Time No Known Drug Allergies Allergy Verified 09/19/22 08:30 Review of Systems Status of ROS: Reports: 10 or more systems reviewed and unremarkable except as noted in History and below PFSH PFS Surgical History Wrist fracture ?S62.109A - Fracture of unspecified carpal bone, unspecified wrist, initial encounter for closed fracture (ICD-10) Arm fracture ?S42.309A - Unspecified fracture of shaft of humerus, unspecified arm, initial encounter for closed fracture (ICD-10) S/P tonsillectomy and adenoidectomy ?Z90.89 - Acquired absence of other organs (ICD-10) Family History Other Diabetes Osteopenia Rheumatoid arthritis Social History (Reviewed 04/14/23 @ 19:56 by SHANITA Willard Narrative: She lives in [place] with her mother, who accompanies her today. She graduated from [employer]. She will go to [employer] for University in the fall. She does not smoke or use recreational drugs. She drinks alcohol infrequently. Smoking Status: Never smoker How often do you have a drink containing alcohol: never AUDIT-C Alcohol total score: 0 Non-prescribed substance use: denies use Exam Narrative: Exam Narrative: Const: Well-nourished, Well-developed, in mild distress Eyes: PERRL, no conjunctival injection, and symmetrical lids HENT: Atraumatic external nose and ears. Moist mucous membranes. Right ear tender on manipulation, slight erythema noted of the external auditory canal. Left tympanic membrane looks normal. Right tympanic membrane is difficult to definitively say but appears to be some fluid behind the ear Neck: Symmetric, trachea midline, No thyromegaly. CVS: RRR, No murmurs or gallops. Peripheral pulses 2+ and equal in all extremities RESP: Unlabored respiratory effort. Clear to auscultation bilaterally. GI: Nontender/Nondistended, No rebound or guarding. MSK:Extremities w/o deformity, Normal Active ROM Skin: Warm, Dry. No rashes or lesions. Neuro: Normal Muscle tone, No focal neurological deficits. Psych: Awake, Alert, & Oriented x3. Appropriate mood and affect. Const: Vital Signs, click to edit/add: Vital Signs - 24 hr 04/14/23 18:57 Temperature 97.3 F L Pulse Rate [Pulse Oximeter] 66 Respiratory Rate 18 Blood Pressure [Ri ght Upper Arm] 117/68 Pulse Oximetry 99 Oxygen Delivery Me thod Room Air Course Vital Signs Vital signs: Initial Vital Signs Temperature 97.3 F L 04/14/23 18:57 Temperature Source Temporal Artery Scan 04/14/23 18:57 Pulse Rate 66 04/14/23 18:57 Respiratory Rate 18 04/14/23 18:57 Blood Pressure 117/68 04/14/23 18:57 Blood Pressure Mean 84 04/14/23 18:57 Pulse Oximetry 99 04/14/23 18:57 Oxygen Delivery Method Room Air 04/14/23 18:57 Vital Signs Temperature 97.3 F L 04/14/23 18:57 Pulse Rate 66 04/14/23 18:57 Respiratory Rate 18 04/14/23 18:57 Blood Pressure 117/68 04/14/23 18:57 Pulse Oximetry 99 04/14/23 18:57 Oxygen Delivery Method Room Air 04/14/23 18:57 Temperature 97.3 F L 04/14/23 18:57 Pulse Rate 66 04/14/23 18:57 Respiratory Rate 18 04/14/23 18:57 Blood Pressure 117/68 04/14/23 18:57 Pulse Oximetry 99 04/14/23 18:57 Oxygen Delivery Method Room Air 04/14/23 18:57 Medications Administered Medications: Generic Name Dose Route Start Last Admin Trade Name Freq PRN Reason Stop Dose Admin Ondansetron HCl 4 mg 04/14/23 19:13 04/14/23 19:20 Ondansetron Odt 4 Mg Tab PO 04/14/23 19:14 4 mg ONCE ONE Administration Medical Decision Making MDM Narrative Medical decision making narrative: Patient is a 22-year-old female presenting to the emergency department for right ear pain. She is also having some lightheadedness and presyncope symptoms but has normal vital signs. Considering her age not having any other risk factors for ACS, PE, pneumonia, pneumothorax or any other concerning abnormalities under not believe it is necessary to further work this up. EKG was done showing no concerning abnormalities. Zofran was given which helped with her nausea. She has not had any recent swimming but her symptoms are concerning for otitis externa. Due to that I plan on treating her for otitis externa and switch to her amoxicillin to Augmentin. She is agreeable to this plan. We will also prescribe Zofran. Corticalsporin ear drops for the otitis externa. No sign of of tympanic membrane rupture. [facility] She is otherwise doing well can be safely discharged home. ECG Data Attestation: I personally reviewed and interpreted this ECG as follows: Interpretation: Normal sinus rhythm with a rate 91 beats per minute, normal intervals, normal axis, no ST or T-wave abnormalities Discharge Plan Discharge Clinical Impression: Otitis externa Qualifiers: Otitis externa type: unspecified type Chronicity: unspecified Laterality: right Qualified Code(s): H60.91 - Unspecified otitis externa, right ear Otitis media Qualifiers: Otitis media type: unspecified Chronicity: acute Qualified Code(s): H66.90 - Otitis media, unspecified, unspecified ear Patient Disposition: Home, Self-Care Condition: Stable Instructions: Swimmer's Ear (ED), Ear Infection (ED) Additional Instructions: Take Tylenol and ibuprofen for pain. Use the antibiotic ear drops as directed. Stop amoxicillin and start taking Augmentin. also use the Zofran as needed for nausea Prescriptions: No Action amoxicillin-pot clavulanate 875-125 mg tablet 1 tab PO BID drospirenone-ethinyl estradiol 3-0.02 mg tablet 1 tab PO QDAY Qty: 84 4RF Follow Up/Referrals: Kayley Diaz MD [Primary Care Provider] - Stand Alone Forms: [id number] outdoorsth Info Instructions
--- OUTSIDE RECORDS SUMMARY | 2023-04-14 20:00 | XMS_ITS | Clinical Summary ---
Author Name Unknown Organization [facility] Address [place], [place] [address] Care Team Providers Care L D Rn Name Role Phone Pcp, No Primary Care Provider Unavailabl e Allergies No known active allergies Medications Medication Sig Dispensed Refills Start Date End Date Status polyethylene glycoL (MIRALAX) 17 gram/dose powder Take 17 g by mouth. 0 07/23/2012 Active drospirenone-ethinyl estradioL (SOLO) 3-0.02 mg tablet 0 09/27/2022 Active cyanocobalamin (Vitamin B-12) 1,000 mcg tabletIndications:Vit monroy B12 deficiency Take 1 Tablet (1,000 mcg) by mouth once daily. 90 Tablet 3 10/01/2022 Active ferrous sulfate, 65 mg elemental, tabletIndications:Low ferritin Take 1 Tablet (325 mg) by mouth once daily with a meal. 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 10/2013 normal bladder/renal ultrasound. Voiding program/constipation program (see note from 11/04/13 consult). F/u 6mos 02/2014, E coli urinary tract infection, tx'd with keflex. 05/2014 dysfunctional voiding clinic visit--see scanned notes--not following prescribed regimen of daily miralax, daily oxybutin, timed voiding. Worsened retained stool, per KUB and several interim UTIs since previous visit. Reiterated plan again and urged GI consult. 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 Overview: Continue to evaluate for full spectrum Unspecified adjustment reaction 06/27/2010 Overview: School adjustment and attention concerns Regular astigmatism 01/10/2006 Hypermetropia 01/10/2006 Amblyopia, unspecified 01/10/2006 Overview: Refractive-R FX CLOSED HUMERUS, SUPRACONDYLAR 06/02/2004 Resolved Problems Problem Noted Date Diagnosed Date Resolved Date GAIT DISTURBANCE 01/04/2005 05/24/2012 RASH 10/05/2004 05/24/2012 ARM SPRAIN 05/11/2004 05/24/2012 UPPER RESPIRATORY INFECTION - ACUTE 07/20/2003 08/03/2003 Immunizations Name Administration Dates Next Due AMB Influenza, (Flumist) Lynette e Intranasal,LAIV4 (Flu Clinic Only) 12/18/2014,12/27/2011,12/30/2010,01/21 AMB Influenza, IIV4 PF (=>6 mos Flulaval,Fluzone Fluarix)(Flu Clinic Only) 12/13/2019 DTaP 10/11/2006,12/11/2003 TXbO-FcgD-FVA (Pediarix) 01/19/2003,2002,0 2002 Dtap-5 Pertussis Antigens 12/11/2003,2002 HIB PRP-OMP (PedvaxHIB) 01/19/2003,2002, HIB PRP-T (ActHIB,Hiberix) 01/19/2003,2002 ,2002 HPV 9 (Gardasil 9) 12/16/2012,10/24/2012, 013 Hepatitis A (Peds) 01/25/2008,07/23/2007 Hepatitis B (Peds) 2002 Human Papilloma Virus Vaccine 12/16/2012, 013,06/19/2012 Inactivated Polio Vaccine 10/11/2006,2002 Influenza A (H1N1), Live Intranasal 03/11/2009 Influenza, IIV3 (Age >=3 years) 03/24/19 11,12/26/2006,01/12/2006,01/23,12/11/2003,03/24/2003,02/17/2003 Influenza, IIV4 12/27/2018, 8,04/09/2017,10/31,12/18/2014,12/26/2013,12/16/2012 ,12/27/2011,12/30/2010,03/24/2010,09/2009,01/04/2009,01/22/2008, 7,01/12/2006,01/23/2005,12/11/2003,,02/17/2003 Influenza, Live, Intranasal Laiv3 2014,12/26/2013,12/16/2012,12/26,12/30/2010,01/04/2009,01/22/2008 Influenza,LAIV4 Live Intrana manny (Flumist) 12/26/2013,12/16/2012,01/04/2009 MMR 10/11/2006,09/01/2003 Meningococcal Vaccine (Menactra) 10/26/2014 Meningococcal Vaccine (Menomune) 10/26/2014 Pneumococcal conj 7-Valent (Prevnar 7) 3,2002,2002 Tdap 10/26/2014 Varicella Vaccine 10/11/2006,09/01/2003 Family History Medical History Relation Name Comments Other Maternal Aunt lazy eye Diabetes Maternal Grandmother pre buddy betes Other Maternal Grandmother RA/Sjog rens Syndrome Unknown Maternal Grandmother ostepoe ethan Genetic Other 1 healthy Genetic Other 2 no cancer or CA D. Other Other 3 glaucoma/mggm Unknown Paternal Aunt hodgkins Diabetes Paternal Grandfather NIDDM Hyperlipidemia Paternal Grandfather Hypertension Paternal Grandfather Other Paternal Grandfather detache d retina Cancer Paternal Grandmother melanom a Relation Name Status Comments Brother Alive 2 Father Alive Maternal Aunt Maternal Grandfather Alive Maternal Grandmother Alive Mother Alive Other 1 Other 2 Other 3 Paternal Aunt Paternal Grandfather Alive Paternal Grandmother Alive Social History Tobacco Use Types Packs/Day Years Used Date Smoking Tobacco: Never Smokeless Tobacco: Never Tobacco Cessation:Counseling Given: Yes Comments:non smoking home Alcohol Use Standard Drinks/Week Comments No 0 (1 standard drink = 0.6 oz pur e alcohol) PHQ-2 Answer Date Recorded PHQ-2 TOTAL SCORE 0 09/28/2022 Social Connections Answer Date Recorded Frequency of Communication with Friends and Fami ly Not on file 09/28/2022 Financial Resource Strain Answer Date R ecorded Difficulty of Paying Living Expenses Not on file 03/05/2021 Difficulty of Paying Living Expenses Not on file 03/05/2021 Sex and Gender Information Value Date Recorded Sex Assigned at Not on file Gender Identity Not on file Sexual Orientation Not on file Obstetrics History Last Filed Vital Signs Vital Sign Reading Time Taken Comments Blood Pressure 104/60 09/28/2022 2:52 PM CDT Pulse 108 09/28/2022 2:52 PM CDT Temperature 36.8 ??C (98.2 ??F) 12/27/2015 3:51 PM CD T Respiratory Rate 16 10/26/2014 9:21 AM CDT Oxygen Saturation 97% 05/28/2015 8:18 AM CDT Inhaled Oxygen Concentration - - Weight 59 kg (130 lb) 09/28/2022 2:52 PM CDT Height 167.6 cm (5' 6) 09/28/2022 2:52 PM CDT Body Mass Index 20.98 09/28/2022 2:52 PM CDT Plan of Treatment Health Maintenance Due Date Last Done Comments COVID-19 vaccine series (#1) 2002 HPV series for age 9-26 (3 - 3-dose series) 03/10/2013 12/16/2012, 12/16/2012, 12/16/2012, Additional history exists Well Child Check for age 3-20 10/27/2015 10/26/2014, 07/23/2007, 10/11/2006 HIV for age 15-65 2017 Hepatitis C screening for age 18-79 2020 Influenza for age 9-49 11/03/2022 0, 12/27/2018, 01/08/2018, Additional history exists BMI (ht and wt on same day) for age 18+ 09/29/2023 09/28/2022 Depression screening for age 12+ 10/03/2023 10/02/2022, 09/28/2022, 05/28/2015 Tetanus booster 10/26/2024 10/26/2014 Pneumococcal series for age 6-64 Aged Out 01/19/2003, 2002, 2002 No longer eligible based on patient's age to complete this topic Meningococcal series for age 11-21 Aged Out 10/26/2014, 10/26/2014 No longer eligibl e based on patient's age to complete this topic Tdap Completed 10/26/2014 Advance Directives Latest Code Status on File Code Status Date Activated Date Inactivated Comments Full Code 05/31/2012 8:18 AM 05/31/2012 1:38 PM Code Status History Code Status Date Activated Date Inactivated Comments Full Code 05/31/2012 6:21 AM 05/31/2012 8:18 AM Care Teams L D Rn Relationship Specialty Start Date End Date Pcp, No . PCP - General 09/14/22
== END 2023-04-14 20:13 | disposition home or self-care (01) ==
PROVIDERS: Emergency Provider Student in an Organized Health Care Education/Training Program; PCP Family Medicine
DX: H60.91 Unspecified otitis externa, right ear (principal); H66.91 Otitis media, unspecified, right ear
CPT/HCPCS: 93005; 99283; A9270

== ENCOUNTER 2023-06-09 16:11 | Emergency (ER) | payer OTHER, SELFPAY ==
[2023-06-09 16:17] VITALS: BP 122/83; PULSE 109; RESP 18; TEMP 36.8; O2SAT 99; BMI 21.0
--- NOTE | 2023-06-09 16:31 | XR_ITS ---
Patient: [place] Facility:?[facility] Patient ID:?[id number] Site Patient ID:?[id number] Site :?2002 Study:?XRay-Extremity Left Foot-06/09/2023 4:42:59 PM Ordering Physician:Kath Peterson Final Report: INDICATION: Injury, pain at the base of 3rd and 4th toes (sic) COMPARISON: None available. TECHNIQUE: Views: 3 FINDINGS: Mineralization: Normal. Alignment: Normal. Bones and Joints: Nondisplaced obliquely oriented fracture of the distal shaft of the left 4th proximal phalanx. Soft Tissues: Unremarkable. IMPRESSION: Left 4th proximal phalangeal fracture described above. Dictated by Jalen Rose MD @ 06/09/2023 4:58:23 PM Signed by:?Jalen Rose MD @06/09/2023 4:58:23 PM (Electronic Signature)
--- NOTE | 2023-06-09 16:32 | ED_ITS ---
HPI - General Adult General Date Seen: 06/09/23 Chief complaint: Extremity Pain/Injury, Lower Stated complaint: Left foot Pain Time Seen by Provider: 06/09/23 16:27 Source: patient and family Mode of arrival: ambulatory Limitations: no limitations History of Present Illness HPI narrative: Patient is a 22-year-old here with mom for evaluation of her left foot. She ran her foot into a large wooden frame that was laying on the ground. She has pain at the base of her 3rd and 4th toes, she says she feels something moving in a weird way and it ?grosses her out. Mom says her toes were purple to start but that seems to be improved. No significant swelling. Related Data Home Medications Medication Instructions Recorded Confirmed amoxicillin 875 mg-potassium 1 tab PO BID 04/14/23 04/14/23 clavulanate 125 mg tablet Previous Rx's Medication Instructions Recorded drospirenone 3 mg-ethinyl 1 tab PO QDAY #84 tabs 02/15/23 estradiol 0.02 mg tablet Allergies Allergy/AdvReac Type Severity Reaction Status Date / Time No Known Drug Allergies Allergy Verified 09/19/22 08:30 [facility] Surgical History Wrist fracture ?S62.109A - Fracture of unspecified carpal bone, unspecified wrist, initial encounter for closed fracture (ICD-10) Arm fracture ?S42.309A - Unspecified fracture of shaft of humerus, unspecified arm, initial encounter for closed fracture (ICD-10) S/P tonsillectomy and adenoidectomy ?Z90.89 - Acquired absence of other organs (ICD-10) Family History Other Diabetes Osteopenia Rheumatoid arthritis Social History Narrative: She lives in [place] with her mother, who accompanies her today. She graduated from [employer]. She will go to [employer] for University in the fall. She does not smoke or use recreational drugs. She drinks alcohol infrequently. Smoking Status: Never smoker How often do you have a drink containing alcohol: never AUDIT-C Alcohol total score: 0 Non-prescribed substance use: denies use Exam Narrative: Exam Narrative: Vital signs reviewed In general, alert, nontoxic young woman. A little jittery. Extremities: Examination of the left foot shows a faint bruise at the base of the 4th toe over the MTP. Otherwise there is no bruising, swelling or obvious deformity. She has some tenderness over the base of the toes/head of the metacarpal bones in the lateral foot. She does not have tenderness over the 5th metatarsal. Ankle is nontender. Distal CMS normal. Skin: Warm dry well perfused and intact. Const: Vital Signs, click to edit/add: Vital Signs - 24 hr 06/09/23 16:17 Temperature 98.2 F Pulse Rate [Right Pulse Oximeter] 109 H Respiratory Rate 18 Blood Pressure [Ri ght Upper Arm] 122/83 Pulse Oximetry 99 Oxygen Delivery Me thod Room Air Documenting provider has reviewed patient's vital signs: yes Course Course ED Course: The x-ray of the left foot by my review showed a minimally displaced fracture of the proximal phalanx of the 4th toe, read similarly by Radiology. We jonathon- taped here, will give her a postop shoe. Discussed anticipated course for this, would recommend jonathon taping for 3-4 weeks, hard sole shoe as needed for comfort. Primary care follow-up if needed. Ibuprofen and/or Tylenol if needed. Vital Signs Vital signs: Initial Vital Signs Temperature 98.2 F 06/09/23 16:17 Temperature Source Temporal Artery Scan 06/09/23 16:17 Pulse Rate 109 H 06/09/23 16:17 Respiratory Rate 18 06/09/23 16:17 Blood Pressure 122/83 06/09/23 16:17 Blood Pressure Mean 96 06/09/23 16:17 Blood Pressure Position Sitting 06/09/23 16:17 Pulse Oximetry 99 06/09/23 16:17 Oxygen Delivery Method Room Air 06/09/23 16:17 Vital Signs Temperature 98.2 F 06/09/23 16:17 Pulse Rate 109 H 06/09/23 16:17 Respiratory Rate 18 06/09/23 16:17 Blood Pressure 122/83 06/09/23 16:17 Pulse Oximetry 99 06/09/23 16:17 Oxygen Delivery Method Room Air 06/09/23 16:17 Temperature 98.2 F 06/09/23 16:17 Pulse Rate 109 H 06/09/23 16:17 Respiratory Rate 18 06/09/23 16:17 Blood Pressure 122/83 06/09/23 16:17 Pulse Oximetry 99 06/09/23 16:17 Oxygen Delivery Method Room Air 06/09/23 16:17 Discharge Plan Discharge Clinical Impression: Closed fracture of fourth toe of left foot Patient Disposition: Home w/ Parent or Adult Condition: Stable Instructions: Toe Fracture (ED), Post Surgical Shoe (ED) Additional Instructions: Jonathon-tape 3-4 weeks. Hard sole shoe as needed for comfort. Ibuprofen and/or Tylenol. Primary care follow-up if needed for further concerns. Prescriptions: No Action amoxicillin-pot clavulanate 875-125 mg tablet 1 tab PO BID drospirenone-ethinyl estradiol 3-0.02 mg tablet 1 tab PO QDAY Qty: 84 4RF Follow Up/Referrals: Kayley Diaz MD [Primary Care Provider] - Stand Alone Forms: MyHealth Info Instructions
--- OUTSIDE RECORDS SUMMARY | 2023-06-09 16:54 | XMS_ITS | Clinical Summary ---
Author Name Unknown Organization [facility] Address [place], [place] [address] Care Team Providers Care Leadite Worker Name Role Phone Pcp, No Primary Care Provider Unavailabl e Allergies No known active allergies Medications Medication Sig Dispensed Refills Start Date End Date Status polyethylene glycoL (MIRALAX) 17 gram/dose powder Take 17 g by mouth. 0 07/23/2012 Active drospirenone-ethinyl estradioL (SOLO) 3-0.02 mg tablet 09/27/2022 Active cyanocobalamin (Vitamin B-12) 1,000 mcg [...] Flulaval,Fluzone Fluarix)(Flu Clinic Only) 12/13/2019 DTaP 10/11/2006,12/11/2003 [id number] (Pediarix) 01/19/2003,2002,0 2002 Dtap-5 Pertussis Antigens 12/11/2003,2002 [...] Health Maintenance Due Date Last Done Comments HPV series for age 9-26 (3 - 3-dose series) 03/10/2013 12/16/2012, 12/16/2012, 12/16/2012, Additional history exists Well Child Check for age 3-20 10/27/2015 10/26/2014, 07/23/2007, 10/11/2006 HIV for age 15-65 2017 Hepatitis C screening for age 18-79 2020 COVID-19 vaccine series ( season) 2022 BMI (ht and wt on same day) for age 18+ 09/29/2023 09/28/2022 Depression screening for age 12+ 10/03/2023 10/02/2022, 09/28/2022, 05/28/2015 Influenza for age 9-49 11/04/2023 , 12/27/2018, 01/08/2018, Additional history exists Tetanus booster 10/26/2024 10/26/2014 Pneumococcal series for age 6-64 Aged Out 01/19/2003, 2002, 2002 No longer eligible based on patient's age to complete this topic Meningococcal series for age 11-21 Aged Out 10/26/2014, 10/26/2014 No longer eligibl e based on patient's age to complete this topic Tdap Completed 10/26/2014 Advance Directives * Full Code (Latest Code Status on File) Date Activated Date Inactivated Comments 05/31/2012 8:18 AM 05/31/2012 1:38 PM * Full Code Date Activated Date Inactivated Comments 05/31/2012 6:21 AM 05/31/2012 8:18 AM Care Teams Leadite Worker Relationship Specialty Start Date End Date Pcp, No . PCP - General 09/14/22
== END 2023-06-09 16:59 | disposition home or self-care (01) ==
LOC: ED 16:52
PROVIDERS: Emergency Provider Emergency Medicine; PCP Family Medicine
DX: S92.502A Displaced unspecified fracture of left lesser toe(s), initial encounter for closed fracture (principal)
CPT/HCPCS: 73630; 99283; 99284

== ENCOUNTER 2023-12-11 10:01 | Outpatient (CLI) | payer OTHER, SELFPAY ==
--- OUTSIDE RECORDS SUMMARY | 2023-12-11 11:21 | XMS_ITS | Encounter Summary ---
Author Organization [facility] Address [address] [place] [address]. [place] [address] Care Team Providers Care Yard Jockey Name Role Phone Gail Richmond MD Primary Care Provider [phone] [phone] Encounter Details Date Type Department Care Team (Late st Contact Info) Description 08/12/2023 Ophth Exam [facility] Services - Eye Care Service Line [address] [place] [phone] Isac Goodman MD [address] [place] [address] Social History Tobacco Use Types Packs/Day Years Used Date Smoking Tobacco: Never Assessed Adolescent Education Answer Date Record ed Getting School Help Needed Not on file 08/11 Sex and Gender Information Value Date Recorded Sex Assigned at Not on file Gender Identity Not on file Sexual Orientation Not on file documented as of this encounter Plan of Treatment Not on file documented as of this encounter Visit Diagnoses Not on filedocumented in this encounter Care Teams Yard Jockey Relationship Specialty Start Date End Date Gail Richmond MD PCP - General Pediatrics 08/24/14 documented as of this encounter
--- OUTSIDE RECORDS SUMMARY | 2023-12-11 11:21 | XMS_ITS | Clinical Summary ---
Author Organization [facility] Address [address] [place] [address] Care Team Providers Care Property Condition Assessor Name Role Phone Gail Richmond MD Primary Care Provider [phone] [phone] Allergies Active Allergy Reactions Criticality Noted Date Comments Milk Protein 08/24/2014 Gluten Meal 08/24/2014 Medications Medication Sig Dispensed Refills Start Date End Date Status polyethylene glycol (MIRALAX/GLYCOLAX) packet Take 1 packet by mouth daily Active multivitamin, therapeutic with minerals (MULTI-VITAMIN) TABS Take 1 tablet by mouth daily Active oxybutynin (DITROPAN-XL) 10 MG 24 hr tabletIndications:desmond dder spasms Take 10 mg by mouth daily Active acetaminophen (TYLENOL) 325 MG tabletIndications:Dis yulissa radius fracture, right, closed, with malunion, subsequent encounter Take 1 tablet (325 mg) by mouth every 4 hours as needed for pain (mild) 100 tablet 08/24/2014 Active hydrOXYzine (ATARAX) 10 MG tabletIndications:Dis yulissa radius fracture, right, closed, with malunion, subsequent encounter Take 1 tablet (10 mg) by mouth 4 times daily as needed for itching or anxiety (associated with pain) 30 tablet 0 08/24/2014 Active methylphenidate (METADATE CD) 10 MG CR capsule Take 10 mg by mouth every morning 08/06/2023 Active traZODone (DESYREL) 50 MG tablet Take 50 mg by mouth at bedtime 08/06/2023 Active OLANZapine (ZYPREXA) 5 MG tablet Take 5 mg by mouth at bedtime 08/06/2023 Active drospirenone-ethinyl estradiol (SOLO) 3-0.02 MG tablet Take 1 tablet by mouth daily 09/27/2022 Active moxifloxacin (VIGAMOX) 0.5 % ophthalmic solutionIndications: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 08/15 - 08/16: 6x / day. 08/17: 4x/day until told to stop 3 mL 1 08/13/2023 Active Active Problems No known active problems Social History Tobacco Use Types Packs/Day Years Used Date Smoking Tobacco: Never Assessed Adolescent Education Answer Date Record ed Getting School Help Needed Not on file 08/11 Sex and Gender Information Value Date Recorded Sex Assigned at Not on file Gender Identity Not on file Sexual Orientation Not on file Last Filed Vital Signs Vital Sign Reading Time Taken Comments Blood Pressure 116/70 08/12/2023 11:52 PM CDT Pulse 82 08/12/2023 11:52 PM CDT Temperature 36.5 ??C (97.7 ??F) 08/12/2023 11:52 PM C DT Respiratory Rate 18 08/12/2023 11:52 PM CDT Oxygen Saturation 100% 08/12/2023 11:52 PM CDT Inhaled Oxygen Concentration - - Weight 60.8 kg (134 lb) 08/12/2023 7:17 PM CDT Height 168.9 cm (5' 6.5) 08/12/2023 7:17 PM CDT Body Mass Index 21.3 08/12/2023 7:17 PM CDT Plan of Treatment Health Maintenance Due Date Last Done Comments ADVANCE CARE PLANNING 2002 ANNUAL REVIEW OF HM ORDERS 2002 CHLAMYDIA SCREENING 2002 YEARLY PREVENTIVE VISIT 2002 HPV IMMUNIZATION (3 - 2-dose series) 03/10/2013 12/16/2012, 10/24/2012, 06/19/2012 HIV SCREENING 2017 HEPATITIS C SCREENING 2020 PHQ-2 (once per calendar year) 2023 PAP 06/24/2023 COVID-19 Vaccine ( - season) 2023 INFLUENZA VACCINE (#1) 2023 , 12/27/2018, 01/08/2018, Additional history exists DTAP/TDAP/TD IMMUNIZATION (7 - Td or Tdap) 10/26/2024 10/26/2014, 10/11/2006, 12/11/2003, Additional history exists HEPATITIS B IMMUNIZATION Completed 003, 2002, 2002, Additional history exists Pneumococcal Vaccine: Pediatrics (0 to 5 Years) and At-Risk Patients (6 to 64 Years) Aged Out 01/19/2003, 2002, 2002 No longer eligible based on patient's age to complete this topic MENINGITIS IMMUNIZATION Aged Out 10/26/2014 No l onger eligible based on patient's age to complete this topic RSV MONOCLONAL ANTIBODY Aged Out No l onger eligible based on patient's age to complete this topic Medical Devices Implanted Type Area Agricultural Real Estate Agent Device Identifier Shelf Expiration Date Model / Serial / Lot 2.4mm Titanium Volar Distal Radius Plate Right Implanted:Qty: 1 on 08/24/2014 by Sam Gordon MD at [facility] Right: Arm SYNTHES [id number] 0 0505 14 AUG 2014 2.7mm Titanium Screw Cortex Implanted:Qty: 3 on 08/24/2014 by Sam Gordon MD at [facility] Right: Arm SYNTHES 402.872 / [id number] 14 AUG 2014 2.4mm Self Tapping Locking Screw Implanted:Qty: 1 on 08/24/2014 by Sam Gordon MD at [facility] Right: Arm SYNTHES 412.816 / 0505 14 AUG 2014 1.8mm Buttress Pins 14mm Implanted:Qty: 1 on 08/24/2014 by Sam Gordon MD at [facility] Right: Arm SYNTHES .210.08 0505 14 AUG 2014 1.8mm Burttress Pins Implanted:Qty: 1 on 08/24/2014 by Sam Gordon MD at [facility] Right: Arm SYNTHES .210.08 0505 14 AUG 2014 Description:18mm 2.0 Cortex Screws 20mm Implanted:Qty: 1 on 08/24/2014 by Sam Gordon MD at [facility] Right: Arm SYNTHES 201.018 / / 05 105 28 APR 2014 Care Teams Property Condition Assessor Relationship Specialty Start Date End Date Gail Richmond MD PCP - General Pediatrics 08/24/14
--- OUTSIDE RECORDS SUMMARY | 2023-12-11 11:21 | XMS_ITS | Referral Summary ---
Author Organization [facility] Address [address] [place] [address] Care Team Providers Care Customer Program Manager Name Role Phone Gail Richmond MD Primary Care Provider [phone] [phone] Allergies Active Allergy Reactions Criticality Noted Date [...] 08/12/2023 7:17 PM CDT Plan of Treatment Not on file Medical Devices Implanted Type Area Ore Trimmer Device Identifier Shelf Expiration Date Model / Serial / Lot 2.4mm Titanium Volar Distal Radius Plate Right Implanted:Qty: 1 on 08/24/2014 by Sam Gordon MD at [facility] Right: Arm SYNTHES [id number] 0 / [id number] 14 AUG 2014 2.7mm Titanium Screw Cortex Implanted:Qty: 3 on 08/24/2014 by Sam Gordon MD at [facility] Right: Arm SYNTHES 402.872 / / [id number] 14 AUG 2014 2.4mm Self Tapping Locking Screw Implanted:Qty: 1 on 08/24/2014 by Sam Gordon MD at [facility] Right: Arm SYNTHES 412.816 / [id number] AUG 2014 1.8mm Buttress Pins 14mm Implanted:Qty: 1 on 08/24/2014 by Sam Gordon MD at [facility] Right: Arm SYNTHES .50414 AUG 2014 1.8mm Burttress Pins Implanted:Qty: 1 on 08/24/2014 by Sam Gordon MD at [facility] Right: Arm SYNTHES .504[address] AUG 2014 Description:18mm 2.0 Cortex Screws 20mm Implanted:Qty: 1 on 08/24/2014 by Sam Gordon MD at [facility] Right: Arm SYNTHES 201.018 05 105 28 APR 2014 Care Teams Customer Program Manager Relationship Specialty Start Date End Date Gail Richmond MD PCP - General Pediatrics 08/24/14
--- OUTSIDE RECORDS SUMMARY | 2023-12-11 11:21 | XMS_ITS | Clinical Summary ---
Author Organization [facility] Address [place], [place] [address] Care Team Providers Care Crew Member Name Role Phone Pcp, No Primary Care [...] a meal. 90 Tablet 3 10/01/2022 Active ARIPiprazole (ABILIFY) 2 mg tablet 06/26/2023 Act anastasiia methylphenidate, 30-70 multiphase, (METADATE CD) 10 mg capsule 10 mg. 08/06/2023 Active traZODone (DESYREL) 50 mg tablet Take 50 mg by mouth at bedtime. 08/06/2023 Active OLANzapine (ZYPREXA) 5 mg tablet Take 5 mg by mouth once daily. 08/06/2023 Active Active Problems Problem Noted Date Diagnosed Date Dyslexia 09/28/2022 History of anorexia nervosa 09/28/2022 Recurrent UTI 11/05/2013 Overview (06/18/2015): F/B urology clinic/voiding program. 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 Overview (07/04/2010): Continue to evaluate for full spectrum Unspecified adjustment reaction 06/27/2010 Overview (06/27/2010): School adjustment and attention concerns Regular astigmatism 01/10/2006 Hypermetropia 01/10/2006 Amblyopia, unspecified 01/10/2006 Overview (01/10/2006): Refractive-R FX CLOSED HUMERUS, SUPRACONDYLAR 06/02/2004 Resolved Problems Problem Noted Date Diagnosed Date Resolved Date GAIT DISTURBANCE 01/04/2005 05/24/2012 RASH 10/05/2004 05/24/2012 ARM SPRAIN 05/11/2004 05/24/2012 UPPER RESPIRATORY INFECTION - ACUTE 07/20/2003 08/03/2003 Immunizations Name Administration Dates Next Due AMB Influenza, (Flumist) [facility] Intranasal,LAIV4 (Flu Clinic Only) 12/18/2014,12/27/2011,12/30/2010,01/21 AMB Influenza, IIV4 PF (=>6 mos Flulaval,Fluzone Fluarix)(Flu Clinic Only) 12/13/2019 DTaP 10/11/2006,12/11/2003 [id number] (Pediarix) 01/19/2003,2002,0 2002 Dtap-5 Pertussis Antigens 12/11/2003,2002 HIB PRP-OMP (PedvaxHIB) 01/19/2003,2002, HIB PRP-T (ActHIB,Hiberix) 01/19/2003,2002 ,2002 HPV 9 (Gardasil 9) 12/16/2012,10/24/2012, 013 Hepatitis A (Peds) 01/25/2008,07/23/2007 Hepatitis B (Peds) 2002 Human Papilloma Virus Vaccine 12/16/2012, 013,06/19/2012 Inactivated Polio Vaccine 10/11/2006,2002 Influenza A (H1N1), Live Intranasal 03/11/2009 Influenza, IIV3 (Age >=3 years) 03/24/19 11,12/26/2006,01/12/2006,01/23,12/11/2003,03/24/2003,02/17/2003 Influenza, IIV4 12/27/2018, 8,04/09/2017,10/31,12/18/2014,12/26/2013,12/16/2012 ,12/27/2011,12/30/2010,03/24/2010,09/2009,01/04/2009,01/22/2008, 7,01/12/2006,01/23/2005,12/11/2003,,02/17/2003 Influenza,LAIV3 Live Intrana manny (Flumist) 12/18/2014,12/26/2013,12/16/2012,12/26,12/30/2010,01/04/2009,01/22/2008 Influenza,LAIV4 Live Intrana manny (Flumist) 12/26/2013,12/16/2012,01/04/2009 MMR [...] Packs/Day Years Used Date Smoking Tobacco: Never Passive Smoke Exposure: Never Smokeless Tobacco: Never Tobacco Cessation:Counseling Given: No Comments:non smoking home Alcohol Use Standard Drinks/Week Comments No 0 (1 standard drink = 0.6 oz pur e alcohol) PHQ-2 Answer Date Recorded PHQ-2 TOTAL SCORE 0 09/28/2022 Social Connections Answer Date Recorded Frequency of Communication with Friends and Fami ly 0 08/12/2023 Financial Resource Strain Answer Date R ecorded Difficulty of Paying Living Expenses 3 08/12/2023 Difficulty of Paying Living Expenses Not on file 08/12/2023 Food Insecurity Answer Date Recorded Worried About Running Out of Food in the Last Ye ar 1 08/12/2023 Transportation Needs Answer Date Record ed Lack of Transportation (Medical) 1 08/12/2023 Housing Stability Answer Date Recorded Unable to Pay for Housing in the Last Year 1 08/12/2023 Sex and Gender Information Value Date Recorded Sex Assigned at Not on file Gender Identity Not on file Sexual Orientation Not on file Obstetrics History Last Filed Vital Signs Vital Sign Reading Time Taken Comments Blood Pressure 109/66 08/12/2023 4:01 PM CDT Pulse 103 08/12/2023 4:01 PM CDT Temperature 36.4 ??C (97.6 ??F) 08/12/2023 4:01 PM CD T Respiratory Rate 16 10/26/2014 9:21 AM CDT Oxygen Saturation 96% 08/12/2023 4:01 PM CDT Inhaled Oxygen Concentration - - Weight 59 kg (130 lb) 08/12/2023 4:01 PM CDT Height 167.6 cm (5' 6) 09/28/2022 2:52 PM CDT Body Mass Index - - Plan of Treatment Health Maintenance Due Date Last Done Comments HPV series for age 9-26 (3 - 3-dose series) 03/10/2013 12/16/2012, 12/16/2012, 12/16/2012, Additional history exists HIV for age 15-65 2017 Hepatitis C screening for age 18-79 2020 Pap test for age 21-65 06/24/2023 BMI (ht and wt on same day) for age 18+ 09/29/2023 09/28/2022 Depression screening for age 12+ 10/03/2023 10/02/2022, 09/28/2022, 05/28/2015 COVID-19 vaccine series ( season) 2023 Influenza for age 9-49 11/04/2023 , 12/27/2018, [...] 6:21 AM 05/31/2012 8:18 AM Care Teams Crew Member Relationship Specialty Start Date End Date Pcp, No . PCP - General 09/14/22
[2023-12-11 13:06] LABS: Chlamydia DNA Amplified* NOT DETECTED (No Detected); GC DNA Amplified* NOT DETECTED (No Detected)
== END 2023-12-11 10:02 | disposition home or self-care (01) ==
PROVIDERS: PCP Family Medicine; Visit Provider Obstetrics & Gynecology
DX: N92.0 Excessive and frequent menstruation with regular cycle (principal); R10.2 Pelvic and perineal pain; Z13.9 Encounter for screening, unspecified; Z12.4 Encounter for screening for malignant neoplasm of cervix
CPT/HCPCS: 87086; 87491; 87591; 87624; 87625; 88141; 88142

== ENCOUNTER 2023-12-12 12:53 | Outpatient (CLI) | payer OTHER, SELFPAY ==
--- OUTSIDE RECORDS SUMMARY | 2023-12-12 12:57 | XMS_ITS | Clinical Summary ---
Author Organization [facility] Address [address] [place] [address] Care Team Providers Care Franchise Consultant Name Role Phone Gail Richmond MD Primary Care Provider [phone] [phone] Allergies Active Allergy Reactions Criticality Noted Date [...] this topic Medical Devices Implanted Type Area Engineering Mathematician Device Identifier Shelf Expiration Date Model / Serial / Lot 2.4mm Titanium Volar Distal Radius Plate Right Implanted:Qty: 1 on 08/24/2014 by Sam Gordon MD at [facility] Right: Arm SYNTHES [id number] 0 0505 14 AUG 2014 2.7mm Titanium Screw Cortex Implanted:Qty: 3 on 08/24/2014 by Sam Gordon MD at [facility] Right: Arm SYNTHES 402.872 / [id number] 14 AUG 2014 2.4mm Self Tapping Locking Screw Implanted:Qty: 1 on 08/24/2014 by Sam Gordon MD at [facility] Right: Arm SYNTHES 412.816 / 0505 14 AUG 2014 1.8mm Buttress Pins 14mm Implanted:Qty: 1 on 08/24/2014 by Sam Gordon MD at [facility] Right: Arm SYNTHES .210.08 0505 14 AUG 2014 1.8mm Burttress Pins Implanted:Qty: 1 on 08/24/2014 by Sam Gordon MD at [facility] Right: Arm SYNTHES .210.08 0505 14 AUG 2014 Description:18mm 2.0 Cortex Screws 20mm Implanted:Qty: 1 on 08/24/2014 by Sam Gordon MD at [facility] Right: Arm SYNTHES 201.018 / / 05 105 28 APR 2014 Care Teams Franchise Consultant Relationship Specialty Start Date End Date Gail Richmond MD PCP - General Pediatrics 08/24/14
--- OUTSIDE RECORDS SUMMARY | 2023-12-12 12:57 | XMS_ITS | Clinical Summary ---
Author Organization [facility] Address [place], [place] [address] Care Team Providers Care Asbestos Textile Supervisor Name Role Phone Pcp, No Primary Care [...] Flulaval,Fluzone Fluarix)(Flu Clinic Only) 12/13/2019 DTaP 10/11/2006,12/11/2003 [id number] (Pediarix) 01/19/2003,2002,0 2002 Dtap-5 Pertussis Antigens 12/11/2003,2002 [...] 6:21 AM 05/31/2012 8:18 AM Care Teams Asbestos Textile Supervisor Relationship Specialty Start Date End Date Pcp, No . PCP - General 09/14/22
--- OUTSIDE RECORDS SUMMARY | 2023-12-12 12:57 | XMS_ITS | Encounter Summary ---
Author Organization [facility] Address [address] [place] [address]. [place] [address] Care Team Providers Care Activities Manager Name Role Phone Gail Richmond MD Primary Care Provider [phone] [phone] Encounter Details Date Type Department Care Team (Late st Contact Info) Description 08/12/2023 Ophth Exam [facility] Services - Eye Care Service Line [address] [place] [phone] Isac Goodman MD [address] [place] [address] Social History Tobacco Use Types Packs/Day Years [...] on filedocumented in this encounter Care Teams Activities Manager Relationship Specialty Start Date End Date Gail Richmond MD PCP - General Pediatrics 08/24/14 documented as of this encounter
--- OUTSIDE RECORDS SUMMARY | 2023-12-12 12:57 | XMS_ITS | Referral Summary ---
Author Organization [facility] Address [address] [place] [address] Care Team Providers Care Civil Engineering Director Name Role Phone Gail Richmond MD Primary Care Provider +1 [phone] Allergies Active Allergy Reactions Criticality Noted Date [...] on file Medical Devices Implanted Type Area Plating Foreman Device Identifier Shelf Expiration Date Model / Serial / Lot 2.4mm Titanium Volar Distal Radius Plate Right Implanted:Qty: 1 on 08/24/2014 by Sam Gordon MD at [facility] Right: Arm SYNTHES 04.111.63 0 / [id number] 14 AUG 2014 2.7mm Titanium Screw Cortex Implanted:Qty: 3 on 08/24/2014 by Sam Gordon MD at [facility] Right: Arm SYNTHES 402.872 / / [id number] 14 AUG 2014 2.4mm Self Tapping Locking Screw Implanted:Qty: 1 on 08/24/2014 by Sam Gordon MD at [facility] Right: Arm SYNTHES 412.816 / [id number] AUG 2014 1.8mm Buttress Pins 14mm Implanted:Qty: 1 on 08/24/2014 by Sam Gordon MD at [facility] Right: Arm SYNTHES .[address] AUG 2014 1.8mm Burttress Pins Implanted:Qty: 1 on 08/24/2014 by aSm Gordon MD at [facility] Right: Arm SYNTHES .[address] AUG 2014 Description:18mm 2.0 Cortex Screws 20mm Implanted:Qty: 1 on 08/24/2014 by Sam Gordon MD at [facility] Right: Arm SYNTHES 201.018 05 105 28 APR 2014 Care Teams Civil Engineering Director Relationship Specialty Start Date End Date Gail Richmond MD PCP - General Pediatrics 08/24/14
--- NOTE | 2023-12-12 13:00 | CRLHL7_ITS ---
For Patients: As a result of the Century Cures Act, medical imaging exams and procedure reports are released immediately into your electronic medical record. You may view this report before your referring provider. If you have questions, please contact your health care provider. INDICATION: Pelvic pain, Hx LT oophorectomy COMPARISON: none TECHNIQUE: 2D etienne scale and color Doppler images were acquired of the pelvis using a transabdominal and transvaginal approach. FINDINGS: Sonographic images demonstrate a normal size and smooth outer contour of the uterus. Uterus measures 7.9 cm in length by 4.3 cm in AP diameter by 2.1 cm in transverse dimension. The myometrium has a normal uniform echotexture. The endometrial lining appears normal and measures 3 mm in composite thickness. The right ovary measures 3.5 x 2.1 x 1.9 cm in size and the left ovary is absent. The right ovary demonstrates normal arterial and venous blood flow on color Doppler analysis. There are no suspicious fluid collections within the cul-de-sac. IMPRESSION: Status post left oophorectomy. Otherwise unremarkable pelvic ultrasound. Dictated by Magdaleno Shelton MD @ 12/13/2023 11:09:46 AM (Electronically Signed)
== END 2023-12-12 12:54 | disposition home or self-care (01) ==
LOC: US 12:54
PROVIDERS: PCP Family Medicine; Visit Provider Obstetrics & Gynecology
DX: R10.2 Pelvic and perineal pain (principal)
CPT/HCPCS: 76830; 76856

== ENCOUNTER 2024-01-03 07:03 | Day surgery (SDC) | payer OTHER, SELFPAY ==
[2024-01-03] VITALS (14 sets, daily range): BP systolic 112–125; BP diastolic 66–81; PULSE 65–110; RESP 13–20; TEMP 36.3–36.9; O2SAT 96–100; BMI 22.4
--- OUTSIDE RECORDS SUMMARY | 2024-01-03 07:07 | XMS_ITS | Encounter Summary ---
Author Organization [facility] Address [address] [place] [address]. [place] [address] Care Team Providers Care Senior Product Integrity Engineer Name Role Phone Gail Richmond MD Primary Care Provider [phone] Encounter Details Date Type Department Care Team (Late st Contact Info) Description 08/12/2023 Ophth Exam 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
--- OUTSIDE RECORDS SUMMARY | 2024-01-03 07:07 | XMS_ITS | Referral Summary ---
Author Organization [facility] Address [facility] [place] [address] Care Team Providers Care Conservation Engineer Name Role Phone Gail Richmond MD Primary Care Provider [phone] Allergies Active Allergy Reactions Criticality Noted Date Comments Milk Protein 08/24/2014 Gluten Meal 08/24/2014 Medications polyethylene glycol (MIRALAX/GLYCOLA X) packet Take 1 packet by mouth daily Active multivitamin, therapeutic with minerals (MULTI-VITAMIN) TABS Take 1 tablet by mouth daily Active oxybutynin (DITROPAN-XL) 10 MG 24 hr tabletIndication s:bladder spasms Take 10 mg by mouth daily Active acetaminophen (TYLENOL) 325 MG tabletIndication s:Distal radius fracture, right, closed, with malunion, subsequent encounter Take 1 tablet (325 mg) by mouth every 4 hours as needed for pain (mild) 100 tablet 08/24/2014 Active hydrOXYzine (ATARAX) 10 MG tabletIndication s:Distal radius fracture, right, closed, with malunion, subsequent [...] mg by mouth at bedtime 08/06/2023 Active drospirenone-eth inyl estradiol (SOLO) 3-0.02 MG tablet Take 1 tablet by mouth daily 09/27/2022 Active moxifloxacin (VIGAMOX) 0.5 % ophthalmic solutionIndicati ons:Marginal corneal ulcer of right eye Use in [...] on file 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 Gender Identity Not on file Sexual Orientation [...] on file Medical Devices Implanted Type Area Veneer Sander Device Identifier Shelf Expiration Date Model / Serial / Lot 2.4mm Titanium Volar Distal Radius Plate Right Implanted:Qty: 1 on 08/24/2014 by Sam Gordon MD at [facility] Right: Arm SYNTHES [id number] 0505 14 AUG 2014 2.7mm Titanium Screw Cortex Implanted:Qty: 3 on 08/24/2014 by Sam Gordon MD at [facility] Right: Arm SYNTHES 402.872 0505 14 AUG 2014 2.4mm Self Tapping Locking Screw Implanted:Qty: 1 on 08/24/2014 by Sam Gordon MD at [facility] Right: Arm SYNTHES 412.816 / 0505 14 AUG 2014 1.8mm Buttress Pins 14mm Implanted:Qty: 1 on 08/24/2014 by Sam Gordon MD at [facility] Right: Arm SYNTHES .08 4 0505 14 AUG 2014 1.8mm Burttress Pins Implanted:Qty: 1 on 08/24/2014 by Sam Gordon MD at [facility] Right: Arm SYNTHES . 8 0505 14 AUG 2014 Description:18mm 2.0 Cortex Screws 20mm Implanted:Qty: 1 on 08/24/2014 by Sam Gordon MD at [facility] Right: Arm SYNTHES 201.018 / / 05 105 28 APR 2014 Insurance [facility] CHO[facility] Care Teams Conservation Engineer Relationship Specialty Start Date End Date Gail Richmond MD PCP - General Pediatrics 08/24/14
--- OUTSIDE RECORDS SUMMARY | 2024-01-03 07:07 | XMS_ITS | Clinical Summary ---
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 Gender Identity Not on file Sexual Orientation [...] year) 2023 PAP 06/24/2023 COVID-19 Vaccine ( season) 2023 INFLUENZA VACCINE (#1) 2023 , 12/27/2018, 01/08/2018, Additional history exists DTAP/TDAP/TD IMMUNIZATION (7 - Td or Tdap) 10/26/2024 10/26/2014, 10/11/2006, 12/11/2003, Additional history exists RSV VACCINE (1 - 1-dose 75+ series) 2077 HEPATITIS B IMMUNIZATION Completed 003, 2002, 2002, [...] this topic Medical Devices Implanted Type Area Wire Stretcher Device Identifier Shelf Expiration Date Model / Serial / Lot 2.4mm Titanium Volar Distal Radius Plate Right Implanted:Qty: 1 on 08/24/2014 by Sam Gordon MD at [facility] Right: Arm SYNTHES [id number] 0 0505 14 AUG 2014 2.7mm Titanium Screw Cortex Implanted:Qty: 3 on 08/24/2014 by Sam Gordon MD at [facility] Right: Arm SYNTHES 402.872 0505 14 AUG 2014 2.4mm Self Tapping Locking Screw Implanted:Qty: 1 on 08/24/2014 by Sam Gordon MD at [facility] Right: Arm SYNTHES 412.816 0505 14 AUG 2014 1.8mm Buttress Pins 14mm Implanted:Qty: 1 on 08/24/2014 by Sam Gordon MD at [facility] Right: Arm SYNTHES .08 05014 AUG 2014 1.8mm Burttress Pins Implanted:Qty: 1 on 08/24/2014 by Sam Gordon MD at [facility] Right: Arm SYNTHES .08 0505 14 AUG 2014 Description:18mm 2.0 Cortex Screws 20mm Implanted:Qty: 1 on 08/24/2014 by Sam Gordon MD at [facility] Right: Arm SYNTHES 201.018 / / 05 105 28 APR 2014 Insurance [facility] CHO[facility] CHOICE Care Teams Equine Vet Relationship Specialty Start Date End Date Gail Richmond MD PCP - General Pediatrics 08/24/14
--- OUTSIDE RECORDS SUMMARY | 2024-01-03 07:08 | XMS_ITS | Clinical Summary ---
Author Organization [facility] Address [place], [place] [address] Care Team Providers Care Tool Shaper Setup Operator Name Role Phone Pcp, No Primary Care [...] UPPER RESPIRATORY INFECTION - ACUTE 07/20/2003 08/03/2003 Encounters Date Type Department Care Team Description 12/12/2023 Orders Only [facility] Scanner 1 scan: (1-Ord) [facility], PELVIS TA and TV, 12/12/2023 from Last 3 Months Immunizations Name Administration Dates Next Due AMB Influenza, (Flumist) Lynette e Intranasal,LAIV4 (Flu Clinic Only) 12/18/2014,12/27/2011,12/30/2010,01/21 AMB Influenza, IIV4 PF (=>6 mos Flulaval,Fluzone Fluarix)(Flu Clinic Only) 12/13/2019 DTaP 10/11/2006,12/11/2003 RYpN-NsiE-INX (Pediarix) 01/19/2003,2002,0 2002 Dtap-5 Pertussis Antigens 12/11/2003,2002 [...] 0 09/28/2022 Social Connections Answer Date Recorded Do you often feel lonely or isolated from those around you? 0 08/12/2023 Financial Resource Strain Answer Date R ecorded Difficulty of Paying Living Expenses 3 08/12/2023 Difficulty of Paying Living Expenses Not on file 08/12/2023 Food Insecurity Answer Date Recorded Do you worry your food will run out before you are able to buy more? 1 08/12/2023 Transportation Needs Answer Date Record ed Does lack of transportation keep you from medica l appointments? 1 08/12/2023 Does lack of transportation keep you from work, meetings or getting things that you need? 1 08/12/2023 Housing Stability Answer Date Recorded What is your housing situation today? 1 08/12/2023 Sex and Gender Information Value [...] to complete this topic Tdap Completed 10/26/2014 Procedures Procedure Name Priority Date/Time Associated Diagnosis Comments SCAN-ULTRASOUND REPORT 12/12/2023 12:00 AM CDT from Last 3 Months Results * SCAN-ULTRASOUND REPORT (12/12/2023 12:00 AM CDT) Anatomical Region Laterality Modality Other Scanner OTHER from Last 3 Months Advance Directives * Full Code (Latest Code Status on File) Date Activated Date Inactivated Comments 05/31/2012 8:18 AM 05/31/2012 1:38 PM * Full Code Date Activated Date Inactivated Comments 05/31/2012 6:21 AM 05/31/2012 8:18 AM Care Teams Tool Shaper Setup Operator Relationship Specialty Start Date End Date Pcp, No . PCP - General 09/14/22
[2024-01-03] MEDS: SODIUM CHLORIDE 0.9 % (FLUSH) 10 ML SYRINGE IVF (07:35)
[2024-01-03 07:38] LABS: Ur HCG Qualitative* Negative (Negative)
--- NOTE | 2024-01-03 08:08 | W.PM.H&PU ---
History & Physical Update History & Physical Update H&P Reviewed and patient assessed: No changes noted
[2024-01-03] MEDS: 0.9 % SODIUM CHLORIDE 500 ML 500 ML 100 ML IV (08:15)
[2024-01-03] MEDS: BUPIVACAINE 0.25% 30 ML INJECTION (09:10)
--- NOTE | 2024-01-03 09:20 | P.GYNPRC_ITS ---
Procedure Note Date of procedure: 01/03/24 Will [facility] bill your pro fee for this procedure?: Yes Pre-op diagnosis: Pelvic pain Post-op diagnosis: Same Procedure: Diagnostic laparoscopy with peritoneal biopsies Anesthesia: GETA Complications: none Surgeon: Leida Cazares MD Fire Prevention Bureau Captain: Violet Ruff Estimated blood loss (mL): 5 IV fluids (mL): 200 Urine Output (mL): 200 Pathology: specimen obtained, sent to pathology (Biopsy of left cul-de-sac, biopsy of central cul-de-sac) Condition: stable Disposition: same day Findings: 1. Upon pelvic exam under anesthesia, the cervix and vagina were normal in appearance. Uterus was mobile and anteverted, of normal size and texture. There were no palpable adnexal masses. 2. Upon laparoscopy, survey of the upper abdomen revealed a normal appearance to the inferior edge of the liver, gallbladder and stomach. Bowels were grossly normal appearance, as was the appendix. Survey of the pelvis revealed normal appearance to the uterus. Bilateral tubes and ovaries were normal in appearance. The cul-de-sac revealed patches of tiny vesicles, but was otherwise grossly normal. The bladder reflection was normal in appearance. Procedure Description: Patient was taken to the operating room with IV running. She was positioned in dorsal lithotomy position with her legs fully supported in Yellofin stirrups. General anesthesia was administered. She was prepped and draped in the usual sterile fashion. Bimanual exam was performed for the above-noted findings. Speculum was inserted. A single-toothed uterine manipulator was inserted through the cervix into the lower uterine segment, and affixed to the anterior cervical lip. Speculum was removed. Lakhani catheter was placed. Patient's legs were placed in neutral position. Attention was turned to patient's abdomen. The infraumbilical area was infiltrated with small amount of Marcaine. An infraumbilical incision was made with a scalpel and carried through to the underlying layer of fascia with a hemostat. The 5 mm Fios Kii trocar was assembled with laparoscope within, and insufflator attached. While tenting up the abdomen manually, the trocar was passed through the anterior abdominal wall into the peritoneal cavity. Trocar was removed. Pneumoperitoneum was achieved. Survey of abdomen and pelvis revealed the above-noted findings. Two additional port sites were created. The first was in the patient's left lower quadrant, just superior medial to the left ASIS. The second was a hand's breath superior to and slightly medial to the first. Each was infiltrated with small amount of Marcaine prior to incision. A 5 mm incision was made at each site, making sure the large vessels were out of harm's way. A 5 mm Fios Kii port was inserted at each site, under direct visualization and without complication. The balloon on each of the 3 ports was inflated, holding each in place. The peritoneum of the cul-de-sac was sampled in 2 sites, where fine vesicular appearance was noted. The peritoneum was tented up at the sites with laparoscopic [place] forceps and biopsies were excised sharply. No bleeding was noted. These were sent to pathology for further analysis. The cul-de-sac was then filled with 60 mL of saline. The balloon tips of each port site were deflated. All instruments were removed. Pneumoperitoneum was released and the ports were removed. The skin of each port site was closed with a subcuticular stitch of 4 0 Monocryl. Surgical glue was applied above that. With the patient's legs placed back in lithotomy position, the uterine manipulator was removed. Speculum exam was again performed showing hemostasis of the cervix. Speculum was removed, as was the Lakhani catheter. Patient tolerated procedure well and was taken to recovery area in stable condition. Postoperative debrief was verbalized with OR staff, including a verification of pathology specimens to be sent as described above.
--- NOTE | 2024-01-03 09:30 | W.ANESCHARGE ---
Anesthesia Charges Start Date/Time Anesthesia Start Date: 01/03/24 Anesthesia Start Time: 08:22 Stop Date/Time Anesthesia Stop Date: 01/03/24 Anesthesia Stop Time: 09:31
[2024-01-03] MEDS: fentaNYL 100 MCG/2 ML inj 50 MCG IVP ×3 (09:38→09:57)
--- NOTE | 2024-01-03 09:47 | W.ANESCHARGE ---
Anesthesia Charges Start Date/Time Anesthesia Start Date: 01/03/24 Anesthesia Start Time: 08:22 Stop Date/Time Anesthesia Stop Date: 01/03/24 Anesthesia Stop Time: 09:31
[2024-01-03] MEDS: OXYCODONE 5 MG TABLET PO (10:35)
[2024-01-03] MEDS: ACETAMINOPHEN 500 MG TABLET 1000 MG PO (10:35)
== END 2024-01-03 11:30 | disposition home or self-care (01) ==
LOC: OR 07:06
PROVIDERS: PCP Family Medicine; Visit Provider Obstetrics & Gynecology
PROC: (CPT 49320; principal; 2024-01-03 08:15)
DX: R10.2 Pelvic and perineal pain (principal); N80.399 Endometriosis of the pelvic peritoneum, other specified sites, unspecified depth
CPT/HCPCS: 49321; 00840; 36415; 81025; 86850; 86900; 86901; 88305; A4467; A9270; J0665; J1100; J1885; J2250; J2405; J2704; J2710; J3010; J7030

== ENCOUNTER 2024-01-04 20:40 | Emergency (ER) | payer OTHER, SELFPAY ==
[2024-01-04 20:48] VITALS: BP 129/78; PULSE 110; RESP 20; TEMP 36.7; O2SAT 99; BMI 21.8
--- NOTE | 2024-01-04 20:55 | ED_ITS ---
HPI - Abdominal Pain General Time Seen by Provider: 20:55 Date Seen: 01/04/24 Chief Complaint: Abdominal Pain Stated Complaint: pain in abdomen post surgery Time Seen by Provider: 01/04/24 20:44 Source: patient and RN notes reviewed Mode of arrival: ambulatory Limitations: no limitations History of Present Illness HPI narrative: This 23-year-old female is coming in with worsening abdominal pain and nausea after surgery yesterday. She had diagnostic laparoscopy for pelvic pain yesterday with Dr. Cazares. Biopsies are pending, there was concern that early endometriosis might be possible. Patient became concerned that she might have internal bleeding with her symptoms. She had an ovarian cyst in 2021, was in the ER discharge to home bed had subsequent increase in pain/uncontrolled pain; returned and had surgery for ovarian cystectomy due to suspected torsion, did have to go back to the OR the next day for intraperitoneal bleeding and reoperation for left salpingo oophorectomy. She has been doing oxycodone, Tylenol and ibuprofen alternating. She has had nausea and felt like she was closed vomiting at 1 point. She has had a normal bowel movement without complication, is urinating. She has had no fevers. No respiratory symptoms. MD elicited complaint: abdominal pain Related Data Home Medications ?Medication ?Instructions ?Recorded ?Confirmed olanzapine 2.5 mg tablet 2.5 mg PO QDAY 12/27/23 01/04/24 Previous Rx's ?Medication ?Instructions ?Recorded drospirenone 3 mg-ethinyl 1 tab PO QDAY #84 tabs 12/11/23 estradiol 0.02 mg tablet acetaminophen 500 mg tablet 1,000 mg (2 x 500 mg) PO Q6H PRN 01/03/24 Pain #0 tabs oxycodone 5 mg tablet 5 mg PO Q4H PRN 4 OR GREATER ON 01/03/24 PAIN SCALE #20 tabs ondansetron 4 mg disintegrating 4 mg PO Q6H PRN nausea and 01/04/24 tablet vomiting #10 tabs Allergies Allergy/AdvReac Type Severity Reaction Status Date / Time No Known Drug Allergies Allergy Verified 01/04/24 21:14 Review of Systems Status of ROS Reports: 6 or more systems reviewed and unremarkable except as noted in History and below [facility] Medical History Menorrhagia ?N92.0 - Excessive and frequent menstruation with regular cycle (ICD-10) Pelvic pain ?R10.2 - Pelvic and perineal pain (ICD-10) Depression ?F32.A - Depression, unspecified (ICD-10) Anxiety ?F41.9 - Anxiety disorder, unspecified (ICD-10) ADHD ?F90.9 - Attention-deficit hyperactivity disorder, unspecified type (ICD-10) Ovarian cyst ?N83.209 - Unspecified ovarian cyst, unspecified side (ICD-10) Torsion of fallopian tube ?N83.529 - Torsion of fallopian tube, unspecified side (ICD-10) Anemia due to acute blood loss ?D62 - Acute posthemorrhagic anemia (ICD-10) Fracture of right radius ?S52.91XA - Unspecified fracture of right forearm, initial encounter for closed fracture (ICD-10) Sprain of left wrist ?S63.502A - Unspecified sprain of left wrist, initial encounter (ICD-10) Surgical History S/P laparoscopy ?Z98.890 - Other specified postprocedural states (ICD-10) History of open reduction and internal fixation (ORIF) procedure ?Z98.890 - Other specified postprocedural states (ICD-10) Wrist fracture ?S62.109A - Fracture of unspecified carpal bone, unspecified wrist, initial encounter for closed fracture (ICD-10) Arm fracture ?S42.309A - Unspecified fracture of shaft of humerus, unspecified arm, initial encounter for closed fracture (ICD-10) S/P tonsillectomy and adenoidectomy ?Z90.89 - Acquired absence of other organs (ICD-10) Family History Other Diabetes Osteopenia Rheumatoid arthritis Social History Narrative: She lives in [place] 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 [place] Non smoker Rare alcohol use No illicit drug use Smoking Status: Never smoker Do you use any of these nicotine containing products: None How often do you have a drink containing alcohol: never How often do you have six or more drinks on one occasion: Never AUDIT-C Alcohol total score: 0 Non-prescribed substance use: denies use Caffeine: Yes Little interest or pleasure in doing things: several days Feeling down, depressed, or hopeless: several days Are you using contraception or practicing any form of control: No Exam Const: Vital Signs, click to edit/add: Vital Signs - 24 hr 01/04/24 20:48 01/04/24 21:05 01/04/24 21:23 Temperature 98.0 F Pulse Rate 96 Pulse Rate [Right Pulse Oximeter] 110 H Respiratory Rate 20 20 Blood Pressure 127/77 Blood Pressure [Ri ght Upper Arm] 129/78 Pulse Oximetry 99 98 99 Oxygen Delivery Me thod Room Air 01/04/24 21:24 01/04/24 21:31 Temperature 98.0 F 98.0 F Pulse Rate 89 Pulse Rate [Right Pulse Oximeter] 95 Respiratory Rate 20 20 Blood Pressure 114/72 Blood Pressure [Ri ght Upper Arm] 127/77 Pulse Oximetry 98 97 Oxygen Delivery Me thod Room Air This 23-year-old female is alert, interactive, no apparent distress. Able speak in complete sentences. Pupils equal round reactive, sclera clear, symmetrical facial function. She is able sit up slowly, lungs are clear, good air entry, no wheeze or crackles. CV regular rate and rhythm, sounds normal but do note her pulse on arrival was 110. No murmur heard. Abdomen is soft, nondistended. Port sites are clean and dry, no significant erythema. She has mild tenderness that does not seem to be out of lying from having had surgery. She describes that she feels increased pain throughout the lower abdomen or pelvis area. Bowel sounds are present. Documenting provider has reviewed patient's vital signs: yes Course Course ED Course: Will initiate some IV fentanyl and IV Zofran for her symptoms, she will be on pulse oximetry. They understand the only way for us to further evaluate any intra-abdominal bleeding is to do CT imaging and they agree to do so. Will get baseline labs including a CBC as well. Reevaluation(s) Time of Reevaluation #1: 21:41 Reevaluation #1: Have provided them the CT report, thankfully there is no evidence of any complication, certainly no bleeding. She does have air within the abdominal cavity which is to be expected after laparoscopic surgery. We discussed some ways to try to help with that move out of her system and be reabsorbed, she is going to expect some discomfort from this air within the abdominal cavity, it will eventually resolve. We also discussed that there might be nausea from actually taking the oxycodone. I will send in some Zofran for her, try to take the oxycodone with food. Vital Signs Vital signs: Initial Vital Signs Temperature 98.0 F 01/04/24 20:48 Temperature Source Temporal Artery Scan 01/04/24 20:48 Pulse Rate 110 H 01/04/24 20:48 Respiratory Rate 20 01/04/24 20:48 Blood Pressure 129/78 01/04/24 20:48 Blood Pressure Mean 95 01/04/24 20:48 Blood Pressure Position Sitting 01/04/24 20:48 Pulse Oximetry 99 01/04/24 20:48 Oxygen Delivery Method Room Air 01/04/24 20:48 Vital Signs Temperature 98.0 F 01/04/24 20:48 Pulse Rate 110 H 01/04/24 20:48 Respiratory Rate 20 01/04/24 20:48 Blood Pressure 129/78 01/04/24 20:48 Pulse Oximetry 99 01/04/24 20:48 Oxygen Delivery Method Room Air 01/04/24 20:48 Temperature 98.0 F 01/04/24 21:31 Pulse Rate 89 01/04/24 21:31 Respiratory Rate 20 01/04/24 21:31 Blood Pressure 114/72 01/04/24 21:31 Pulse Oximetry 97 01/04/24 21:31 Oxygen Delivery Method Room Air 01/04/24 21:24 Medications Administered Medications: Discontinued Medications Generic Name Dose Route Start Last Admin Trade Name Freq PRN Reason Stop Dose Admin Fentanyl 25 mcg 01/04/24 21:02 01/04/24 21:10 Fentanyl 100 Mcg/2 Ml Inj IVP 01/04/24 21:03 25 mcg ONCE ONE Administration Ondansetron HCl 4 mg 01/04/24 21:02 01/04/24 21:10 Ondansetron 2 Mg/Ml Inj IVP 01/04/24 21:03 4 mg ONCE ONE Administration MDM - Abdominal Pain Lab Data Attestation: I reviewed the patient's lab results. Lab results narrative: Hemoglobin in July of 2022 was 13.1, this is the last we have in our system. Labs: Lab Results 01/04/24 Range/Units 21:07 WBC 7.53 (4.50-11.00) K/uL RBC 4.01 (4.00-5.20) m/uL Hgb 11.9 L (12.0-16.0) gm/dL Hct 35.8 (33.0-51.0) % MCV 89 (80-100) fL MCH 30 (26-34) pg MCHC 33 (32-36) gm/dL RDW Coeff of Ti 11.7 (11.5-15.5) % Plt Count 224 (140-440) K/uL Neut % (Auto) 58.7 (42.0-72.0) % Lymph % (Auto) 32.1 (20-44) % [place] % (Auto) 6.5 (0.0-11.0) % Eos % (Auto) 2.3 (0.0-7.0) % Baso % (Auto) 0.3 (0.0-3.0) % Neut # (Auto) 4.42 (1.7-7.0) K/uL Lymph # (Auto) 2.42 (0.90-2.90) K/uL [place] # (Auto) 0.50 (0.00-0.90) K/UL Eos # (Auto) 0.17 (0.00-0.50) K/uL Baso # (Auto) 0.02 (0.00-0.30) K/uL Abs Immat Gran (auto) 0.01 (0.00-0.30) K/uL Imm/Tot Granulo (auto) 0.1 % Lactate 0.8 (0.5-1.9) mmol/L Imaging Data CT scan - abdomen: Attestation: I have reviewed the pertinent imaging results. Radiologist's impression: Facility:?[facility] Patient ID:?[id number] Site Patient ID:?[id number]. Site :?[id number] Study:?CT-Abdomen/Pelvis W/ 76CC ISOVUE 370-01/04/2024 9:20:37 PM Ordering Physician:?Tony Iraheta Final Report: INDICATION: Increasing abdominal pain after surgery yesterday TECHNIQUE: Axial images were obtained from the diaphragm to the pubic symphysis. Reformats were obtained in the coronal and sagittal plane. IV Contrast: 76 cc Isovue 370 Oral Contrast: None COMPARISON: Abdomen and pelvis CT 07/12/2022 FINDINGS: Lower chest: Unremarkable. Liver: Unremarkable. Normal in size and attenuation. No masses. Gallbladder and bile ducts: Unremarkable. No stones or inflammation. No biliary dilatation. Spleen: Unremarkable. Normal in size without mass. Pancreas: Unremarkable. No mass or inflammation. Adrenal glands: Unremarkable. No nodules. Kidneys: Unremarkable. No masses, stones, or hydronephrosis. Vasculature: Unremarkable. GI tract: Abundant pneumoperitoneum consistent with postoperative day 1. No dilated loops of large or small intestine with a moderate amount of stool within the colon. Unremarkable appendix. Pelvis: Anteverted uterus. No adnexal masses. Bones: Osseous structures unremarkable. Subcutaneous air at the level of the umbilicus as well as left lower quadrant, likely postsurgical port locations. IMPRESSION: 1. Extensive pneumoperitoneum, within expected limits for postoperative day 1. 2. Otherwise, essentially unremarkable abdomen and pelvis CT. Please note that all CT scans at this facility use dose modulation, iterative reconstruction, and/or weight-based dosing when appropriate to reduce radiation dose to as low as reasonably achievable. Dictated by Dino Dinh MD @ 01/04/2024 9:33:16 PM (Electronic Signature) Discharge Plan Discharge Clinical Impression: Postoperative abdominal pain Patient Disposition: Home, Self-Care Condition: Stable Instructions: Pain Management After Surgery (DC) Additional Instructions: Can use the Zofran if you have further nausea. Continue with your current pain regimen but do understand that nausea can be a side effect of narcotics like oxycodone. Taking the oxycodone with food may help. Continue to follow the postoperative instructions and restrictions as per your surgeon. There is no evidence of intra-abdominal bleeding at this time. If you do have further concerns or issues, we do recommend that you seek re-evaluation. Prescriptions: New ondansetron 4 mg tablet,disintegrating 4 mg PO Q6H PRN (Reason: nausea and vomiting) Qty: 10 0RF No Action drospirenone-ethinyl estradiol 3-0.02 mg tablet 1 tab PO QDAY Qty: 84 4RF olanzapine 2.5 mg tablet 2.5 mg PO QDAY acetaminophen 500 mg Tablet 1,000 mg PO Q6H PRN (Reason: Pain) Qty: 0 0RF oxycodone 5 mg Tablet 5 mg PO Q4H PRN (Reason: 4 OR GREATER ON PAIN SCALE) Qty: 20 0RF Follow Up/Referrals: Kayley Diaz MD [Primary Care Provider] - Stand Alone Forms: [employer] Info Instructions
--- NOTE | 2024-01-04 21:03 | CRLHL7_ITS ---
For Patients: As a result of the Century Cures Act, medical imaging exams and procedure reports are released immediately into your electronic medical record. You may view this report before your referring provider. If you have questions, please contact your health care provider. INDICATION: Increasing abdominal pain after surgery yesterday TECHNIQUE: Axial images were obtained from the diaphragm to the pubic symphysis. Reformats were obtained in the coronal and sagittal plane. IV Contrast: 76 cc Isovue 370 Oral Contrast: None COMPARISON: Abdomen and pelvis CT 07/12/2022 FINDINGS: Lower chest: Unremarkable. Liver: Unremarkable. Normal in size and attenuation. No masses. Gallbladder and bile ducts: Unremarkable. No stones or inflammation. No biliary dilatation. Spleen: Unremarkable. Normal in size without mass. Pancreas: Unremarkable. No mass or inflammation. Adrenal glands: Unremarkable. No nodules. Kidneys: Unremarkable. No masses, stones, or hydronephrosis. Vasculature: Unremarkable. GI tract: Abundant pneumoperitoneum consistent with postoperative day 1. No dilated loops of large or small intestine with a moderate amount of stool within the colon. Unremarkable appendix. Pelvis: Anteverted uterus. No adnexal masses. Bones: Osseous structures unremarkable. Subcutaneous air at the level of the umbilicus as well as left lower quadrant, likely postsurgical port locations. IMPRESSION: 1. Extensive pneumoperitoneum, within expected limits for postoperative day 1. 2. Otherwise, essentially unremarkable abdomen and pelvis CT. Please note that all CT scans at this facility use dose modulation, iterative reconstruction, and/or weight-based dosing when appropriate to reduce radiation dose to as low as reasonably achievable. Dictated by Dino Dinh MD @ 01/04/2024 9:33:16 PM (Electronically Signed)
[2024-01-04 21:05] VITALS: O2SAT 98
[2024-01-04 21:10] LABS: Lactate* 0.8 mmol/L (0.5-1.9)
[2024-01-04] MEDS: fentaNYL 100 MCG/2 ML inj 25 MCG IVP (21:10)
[2024-01-04] MEDS: ONDANSETRON 2 MG/ML inj 4 MG IVP (21:10)
[2024-01-04 21:12] LABS: Basophils Absolute Auto 0.02 K/uL (0.00-0.30); Basophils Percent Auto 0.3 % (0.0-3.0); Eosinophils Absolute Auto 0.17 K/uL (0.00-0.50); Eosinophils Percent Auto 2.3 % (0.0-7.0); Hematocrit 35.8 % (33.0-51.0); Hemoglobin* 11.9 gm/dL (12.0-16.0); Immature Granulocytes Abs Auto 0.01 K/uL (0.00-0.30); Immature Granulocytes Pct Auto 0.1 %; Lymphocytes Absolute Auto 2.42 K/uL (0.90-2.90); Lymphocytes Percent Auto 32.1 % (20-44); Mean Corpuscular HGB Conc 33 gm/dL (32-36); Mean Corpuscular Hemoglobin 30 pg (26-34); Mean Corpuscular Volume 89 fL (80-100); Monocytes Percent Auto 6.5 % (0.0-11.0); Neutrophils Absolute Auto 4.42 K/uL (1.7-7.0); Neutrophils Percent Auto 58.7 % (42.0-72.0); Platelet Count* 224 K/uL (140-440); RDW Coefficient of Variation % 11.7 % (11.5-15.5); Red Blood Count 4.01 m/uL (4.00-5.20); White Blood Count* 7.53 K/uL (4.50-11.00)
[2024-01-04 21:14] LABS: Slide Review Reflex No
[2024-01-04 21:23] VITALS: BP 127/77; PULSE 96; RESP 20; O2SAT 99
[2024-01-04 21:24] VITALS: BP 127/77; PULSE 95; RESP 20; TEMP 36.7; O2SAT 98
[2024-01-04 21:28] LABS: Chloride* 105 mmol/L (96-114); Potassium* 4.1 mmol/L (3.6-5.1); Sodium* 136 mmol/L (135-149)
[2024-01-04 21:31] VITALS: BP 114/72; PULSE 89; RESP 20; TEMP 36.7; O2SAT 97
[2024-01-04 21:31] LABS: Anion Gap 5 mEq/L (7-15); Blood Urea Nitrogen* 15 mg/dL (5-24); Carbon Dioxide* 26 mmol/L (20-32); Creatinine* 0.8 mg/dL (0.5-1.5); Est. Creatinine Clearance* 104.14; Estimated Glomerular Filt Rate 107 ml/min; Glucose* 94 mg/dL (60-115)
[2024-01-04 21:32] LABS: Calcium* 9.3 mg/dL (8.4-10.6)
--- OUTSIDE RECORDS SUMMARY | 2024-01-04 21:40 | XMS_ITS | Encounter Summary ---
Author Organization [facility] Address [address] [place] [address]. [place] [address] Care Team Providers Care Interventionist Name Role Phone Gail Richmond MD Primary Care Provider [phone] [phone] Encounter Details Date Type Department Care Team (Late st Contact Info) Description 08/12/2023 [facility] Service Line [address] [place] [id number] Isac Goodman MD [address] [place] [id number] Social History Tobacco Use Types Packs/Day Years Used Date Smoking Tobacco: Never Assessed Adolescent Education Answer Date Record ed Getting School Help Needed Not on file 08/11 Comments No Sex and Gender Information Value Date Recorded Sex Assigned at Not on file Legal Sex Female 4:[address] 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
--- OUTSIDE RECORDS SUMMARY | 2024-01-04 21:40 | XMS_ITS | Clinical Summary ---
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 Gender Identity Not on file Sexual Orientation [...] this topic Medical Devices Implanted Type Area Hand Quilter Device Identifier Shelf Expiration Date Model / Serial / Lot 2.4mm Titanium Volar Distal Radius Plate Right Implanted:Qty: 1 on 08/24/2014 by Sam Gordon MD at [facility] Right: Arm SYNTHES [id number] 0505 14 AUG 2014 2.7mm Titanium Screw Cortex Implanted:Qty: 3 on 08/24/2014 by Sam Gordon MD at [facility] Right: Arm SYNTHES 402.872 0505 14 AUG 2014 2.4mm Self Tapping Locking Screw Implanted:Qty: 1 on 08/24/2014 by Sam Gordon MD at [facility] Right: Arm SYNTHES 412.816 0505 14 AUG 2014 1.8mm Buttress Pins 14mm Implanted:Qty: 1 on 08/24/2014 by Sam Gordon MD at [facility] Right: Arm SYNTHES .08 05014 AUG 2014 1.8mm Burttress Pins Implanted:Qty: 1 on 08/24/2014 by Sam Gordon MD at [facility] Right: Arm SYNTHES .08 0505 14 AUG 2014 Description:18mm 2.0 Cortex Screws 20mm Implanted:Qty: 1 on 08/24/2014 by Sam Gordon MD at [facility] Right: Arm SYNTHES [id number] / / 05 105 28 APR 2014 Insurance [facility] CHOICE Care Teams Chief Service Dispatcher Relationship Specialty Start Date End Date Gail Richmond MD PCP - General Pediatrics 08/24/14
--- OUTSIDE RECORDS SUMMARY | 2024-01-04 21:40 | XMS_ITS | Clinical Summary ---
Author Organization [facility] Address [place], [place] [address] Care Team Providers Care Supervisor Color Paste Mixing Name Role Phone Pcp, No Primary Care [...] Encounters Date Type Department Care Team Description 01/04/2024 Lab Requisition [facility] [phone] Leida Cazares MD 01/03/2024 Orders Only [facility] Scanner 1 scan: (1-Ord) [facility], DIAGNOSTIC LAPAROSCOPY WITH PERITONEAL BIOPSIES, 01/03/2024 12/12/2023 Orders Only [facility] Scanner 1 scan: (1-Ord) [facility], US PELVIS TA and TV, 12/12/2023 from Last 3 Months Immunizations Name Administration Dates Next Due AMB Influenza, (Flumist) Lynette e Intranasal,LAIV4 (Flu Clinic Only) 12/18/2014,12/27/2011,12/30/2010,01/21 AMB Influenza, IIV4 PF (=>6 mos Flulaval,Fluzone Fluarix)(Flu Clinic Only) 12/13/2019 DTaP 10/11/2006,12/11/2003 [id number] (Pediarix) 01/19/2003,2002,0 2002 Dtap-5 Pertussis Antigens 12/11/2003,2002 [...] Procedure Name Priority Date/Time Associated Diagnosis Comments SCAN-OPERATIVE/PROC EDURE REPORT 01/03/2024 12:00 AM CDT SCAN-ULTRASOUND REPORT 12/12/2023 12:00 AM CDT from Last 3 Months Results * SCAN-OPERATIVE/PROCEDURE REPORT (01/03/2024 12:00 AM CDT) Scanner OTHER * SCAN-ULTRASOUND REPORT (12/12/2023 12:00 AM CDT) Anatomical Region Laterality Modality Other Scanner OTHER from Last 3 Months Advance Directives * Full Code (Latest Code Status on File) Date Activated Date Inactivated Comments 05/31/2012 8:18 AM 05/31/2012 1:38 PM * Full Code Date Activated Date Inactivated Comments 05/31/2012 6:21 AM 05/31/2012 8:18 AM Care Teams Supervisor Color Paste Mixing Relationship Specialty Start Date End Date Pcp, No . PCP - General 09/14/22
--- OUTSIDE RECORDS SUMMARY | 2024-01-04 21:40 | XMS_ITS | Referral Summary ---
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 Gender Identity Not on file Sexual Orientation [...] on file Medical Devices Implanted Type Area Conditioner Tender Device Identifier Shelf Expiration Date Model / Serial / Lot 2.4mm Titanium Volar Distal Radius Plate Right Implanted:Qty: 1 on 08/24/2014 by Sam Gordon MD at [facility] Right: Arm SYNTHES [id number] 0 0505 14 AUG 2014 2.7mm Titanium Screw Cortex Implanted:Qty: 3 on 08/24/2014 by Sam Gordon MD at [facility] Right: Arm SYNTHES 402.872 0505 14 AUG 2014 2.4mm Self Tapping Locking Screw Implanted:Qty: 1 on 08/24/2014 by Sam Gordon MD at [facility] Right: Arm SYNTHES 412.816 / 0505 14 AUG 2014 1.8mm Buttress Pins 14mm Implanted:Qty: 1 on 08/24/2014 by Sam Gordon MD at [facility] Right: Arm SYNTHES .08 4 0505 14 AUG 2014 1.8mm Burttress Pins Implanted:Qty: 1 on 08/24/2014 by Sam Gordon MD at [facility] Right: Arm SYNTHES . 8 0505 14 AUG 2014 Description:18mm 2.0 Cortex Screws 20mm Implanted:Qty: 1 on 08/24/2014 by Sam Gordon MD at [facility] Right: Arm SYNTHES 201.018 / / 05 105 28 APR 2014 Insurance [facility] Information Development ConsultantsAL[facility]ITAL[facility] CHOICE Care Teams Blending Machine Feeder Relationship Specialty Start Date End Date Gail Richmond MD PCP - General Pediatrics 08/24/14
[2024-01-04 21:59] VITALS: BP 127/77; PULSE 95; RESP 20; TEMP 36.7
== END 2024-01-04 22:00 | disposition home or self-care (01) ==
PROVIDERS: Emergency Provider Family Medicine; PCP Family Medicine
DX: R10.9 Unspecified abdominal pain (principal); G89.29 Other chronic pain
CPT/HCPCS: 36415; 74177; 80048; 83605; 85025; 94761; 96374; 96375; 99284; J2405; J3010; Q9967

== ENCOUNTER 2024-10-16 14:33 | Outpatient (CLI) | payer OTHER, SELFPAY | END 2024-10-16 14:34 | disposition home or self-care (01) | LOC: NFLDREF 14:34 | PROVIDERS: PCP Family Medicine; Visit Provider Obstetrics & Gynecology | DX: R10.2 Pelvic and perineal pain (principal) | CPT/HCPCS: 87086 ==

== ENCOUNTER 2024-10-19 17:15 | Observation (INO) | payer OTHER, SELFPAY ==
[2024-10-19] VITALS (9 sets, daily range): BP systolic 124–133; BP diastolic 74–85; PULSE 116–150; RESP 16–18; TEMP 36.1–37.3; O2SAT 98–100; BMI 23.4
--- OUTSIDE RECORDS SUMMARY | 2024-10-19 17:17 | XMS_ITS | Patient Health Record ---
Author Organization [facility] Address [facility] [address] Care Team Providers Care Distresser Name Role Phone Gail Richmond MD Primary Care Provider Allergies Allergen (clinical drug ingredient) Drug/Non Drug Allergy documented on EMR Reaction Allergy Type Onset Date Status gluten&lactose interolant (uncoded) constipation Allergy Active Reason For Referral No Information Medications Medication SIG (Take, Route, Fr equency, Duration) Notes Start Date End Date Status Trospium Chloride Ac tive MiraLax 1/7 capful Once a day Active Multivitamin Active Problems Problem Type SNOMED Code ICD Code Onset Dates Problem Status W/U Status Risk Notes Problem Dysfunctional voiding (204052978) Dysfunctional Voiding (596.59) Active confirmed Problem Constipation (73852879) Constipation (K59.00) Active confirmed Problem Dysfunctional voiding of urine (786837564) Dysfunctional voiding of urine (N39.8) Active confirmed Problem Urinary incontinence (068734734) Urinary incontinence (R32) Active confirmed Problem Urinary tract infectious disease (13088391) UTI (urinary tract infection) (599.0) Active confirmed Problem Incontinence of urine (154432593) Incontinence of urine (788.30) Active confirmed Problem Constipation (78333849) Constipation (564.00) Active confirmed Plan Of Treatment No Information Insurance Providers Payer Name Payer Address Payer Phone Subscriber Number Group Number Insured Name Patient Relationship to Insured Coverage Start Date Coverage End Date [employer] [address] [address] [place] [address] [id number] Owen Whitehead Child - Insured has Financial Responsibility 4 [address] [place] [phone] [id number] Meghann Whitehead Natural Child - Insured has Financial Responsibility 4 Medical (General) History Medical History History ICD Code Genitourinary: Urinary incontinence, Noc turnal enuresis, UTI Gastrointestinal: Constipation Surgical History Surgery Date(Month/Year) tonsils and adnoids removed 05/2012 plates and screw placement 09/2014 plates and screws removed 05/2015
--- OUTSIDE RECORDS SUMMARY | 2024-10-19 17:17 | XMS_ITS | Clinical Summary ---
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 Gender Identity Not on file Sexual Orientation Not on file Last Filed Vital Signs Vital Sign Reading Time Taken Comments Blood Pressure 116/70 08/12/2023 11:52 PM CDT Pulse 82 08/12/2023 11:52 PM CDT Temperature 36.5 C (97.7 F) 08/12/2023 11:52 PM CDT Respiratory Rate 18 08/12/2023 11:52 PM CDT [...] 2002 CHLAMYDIA SCREENING 2002 YEARLY PREVENTIVE VISIT 2005 HPV VACCINE (3 - 2-dose series) 03/10/2013 12/16/2012, 10/24/2012, 06/19/2012 HIV SCREENING 2017 MENINGITIS B VACCINE (1 of 2 - Standard) 2018 HEPATITIS C SCREENING 2020 PAP 06/24/2023 COVID-19 VACCINE ( - season) 2023 PHQ-2 (once per calendar year) 2024 DTAP/TDAP/TD VACCINE (7 - Td or Tdap) 10/26/2024 10/26/2014, 10/11/2006, 12/11/2003, Additional history exists INFLUENZA VACCINE (#1) 2024 , 12/27/2018, 01/08/2018, Additional history exists ZOSTER VACCINE (1 of 2) 2052 HEPATITIS B VACCINE Completed 01/19/2003, 2002, 2002, Additional history exists PNEUMOCOCCAL VACCINE: PEDIATRICS (0 to 5 YEARS) AND AT-RISK PATIENTS (6 to 49 YEARS) Aged Out 01/19/2003, 2002, 2002 No longer eligible based on patient's age to complete this topic MENINGITIS VACCINE Aged Out 10/26/2014 No longer eligible based on patient's age to complete this topic Medical Devices Implanted Type Area Um Nurse Device Identifier Shelf Expiration Date Model / Serial / Lot 2.4mm Titanium Volar Distal Radius Plate Right Implanted:Qty: 1 on 08/24/2014 by Sam Gordon MD at [employer] Right: Arm SYNTHES .[id number] 0 0505 14 AUG 2014 2.7mm Titanium Screw Cortex Implanted:Qty: 3 on 08/24/2014 by Sam Gordon MD at [employer] Right: Arm SYNTHES [id number] 0505 14 AUG 2014 2.4mm Self Tapping Locking Screw Implanted:Qty: 1 on 08/24/2014 by Sam Gordon MD at [employer] Right: Arm SYNTHES [id number] 0505 14 AUG 2014 1.8mm Buttress Pins 14mm Implanted:Qty: 1 on 08/24/2014 by Sam Gordon MD at [employer] Right: Arm SYNTHES .210.08 0505 14 AUG 2014 1.8mm Burttress Pins Implanted:Qty: 1 on 08/24/2014 by Sam Gordon MD at [employer] Right: Arm SYNTHES .210.08 0505 14 AUG 2014 Description:18mm 2.0 Cortex Screws 20mm Implanted:Qty: 1 on 08/24/2014 by Sam Gordon MD at [employer] Right: Arm SYNTHES [id number] / / 05 105 28 APR 2014 Insurance [facility] CHO[facility] CHO[facility] Care Teams Space Systems Operations Manager Relationship Specialty Start Date End Date Gail Richmond MD PCP - General Pediatrics 08/24/14
--- OUTSIDE RECORDS SUMMARY | 2024-10-19 17:17 | XMS_ITS | Clinical Summary ---
Author Organization [facility] Address [address] [place] [address] Care Team Providers Care Furniture Sander Name Role Phone Pcp, No Primary Care Provider Unavailabl e Allergies No known active allergies Medications polyethylene glycoL (MIRALAX) 17 gram/dose powder Take 17 g by mouth. 0 07/23/2012 Active drospirenone-eth inyl estradioL (SOLO) 3-0.02 mg tablet 09/27/2022 Active cyanocobalamin (Vitamin B-12) 1,000 mcg tabletIndication s:Vitamin B12 deficiency Take 1 Tablet (1,000 mcg) by mouth once daily. 90 Tablet 3 10/01/2022 Active ferrous sulfate, 65 mg elemental, tabletIndication s:Low ferritin Take 1 Tablet (325 mg) by mouth once daily with a meal. 90 Tablet 3 10/01/2022 Active ARIPiprazole (ABILIFY) 2 mg tablet 06/26/2023 Active methylphenidate, 30-70 multiphase, (METADATE CD) 10 mg [...] RESPIRATORY INFECTION - ACUTE 07/20/2003 08/03/2003 Immunizations Immunization Administration Dates Next Due AMB Influenza, (Flumist) Lynette e Intranasal,LAIV4 (Flu Clinic Only) 12/18/2014,12/27/2011,12/30/2010,01/21 AMB Influenza, IIV4 PF (=>6 mos Flulaval,Fluzone Fluarix)(Flu Clinic Only) 12/13/2019 DTaP 10/11/2006,12/11/2003 [id number] (Pediarix) 01/19/2003,2002,0 2002 Dtap-5 Pertussis Antigens 12/11/2003,2002 [...] is your housing situation today? 1 08/12/2023 Utilities Answer Date Recorded Do you have trouble paying f or utilities (for example, heat, electricity, water, phone)? 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 Gender Identity Not on file Sexual Orientation Not on file Obstetrics History Last Filed Vital Signs Vital Sign Reading Time Taken Comments Blood Pressure 125/78 04/22/2024 6:27 PM CONSERVATION POLICY ANALYST Pulse 96 04/22/2024 6:27 PM CONSERVATION POLICY ANALYST Temperature 36.4 C (97.5 F) 04/22/2024 6:27 PM CONSERVATION POLICY ANALYST Respiratory Rate 18 04/22/2024 6:27 PM CONSERVATION POLICY ANALYST Oxygen Saturation 99% 04/22/2024 6:27 PM CONSERVATION POLICY ANALYST Inhaled Oxygen Concentration - - Weight 59 [...] 05/28/2015 COVID-19 vaccine series ( season) 2023 Tetanus booster 10/26/2024 10/26/2014 Influenza Vaccine (#1) 2024 , 12/27/2018, 01/08/2018, Additional history exists Hepatitis B series for 19+ Completed 01/19, 2002, 2002, Additional history exists Pneumococcal series for age 6-49 Aged Out 01/19/2003, 2002, 2002 No longer eligible based on patient's age to complete this topic Insurance [facility] Advance Directives * Full Code (Latest Code Status on File) Date Activated Date Inactivated Comments 05/31/2012 8:18 AM 05/31/2012 1:38 PM * Full Code Date Activated Date Inactivated Comments 05/31/2012 6:21 AM 05/31/2012 8:18 AM Care Teams Furniture Sander Relationship Specialty Start Date End Date Pcp, No . PCP - General 09/14/22
--- OUTSIDE RECORDS SUMMARY | 2024-10-19 17:17 | XMS_ITS | Encounter Summary ---
Author Organization [facility] Address [address] [place] [address]. [place] [address] Care Team Providers Care Administrative Intern Name Role Phone Gail Richmond MD Primary Care Provider [phone] Encounter Details Date Type Department Care Team (Late st Contact Info) Description 08/12/2023 Ophth Exam [facility] - Eye Care Service Line [address] [place] [id number] Isac Goodman MD [address] [place] [id number] Social History Tobacco Use Types Packs/Day Years Used Date Smoking Tobacco: Never Assessed Adolescent Education Answer Date Record ed Getting School Help Needed Not on file 08/11 Comments No Sex and Gender Information Value Date Recorded Sex Assigned at Not on file 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
--- NOTE | 2024-10-19 17:30 | ED.HA ---
HPI - Headache General Time Seen by Provider: 17:30 Date Seen: 10/19/24 Chief Complaint: Headache/Migraine Stated Complaint: High heart rate, dizziness, nausea, headache Time Seen by Provider: 10/19/24 17:25 Source: patient and family Mode of arrival: ambulatory Limitations: no limitations History of Present Illness HPI Narrative: 24-year-old female who comes in today with multiple symptoms. Patient reports abrupt onset of left-sided headache between noon and 12 30 today. This migrated from the baptist region posteriorly and cycled around. She also noticed lateral vision loss in the right eye at the same time, this has resolved. She describes tingling in her entire body as well as palpitations, lightheadedness. Symptoms were intermittent for couple hours, she decided come the emergency department after talking to family. No nausea vomiting, no recent illness, not currently on control but denies possibility of . Related Data Home Medications ?Medication ?Instructions ?Recorded ?Confirmed olanzapine 2.5 mg tablet 2.5 mg PO QDAY 12/27/23 10/16/24 dextroamphetamine-amphetamine 5 mg 1 tab PO DAILY 10/16/24 10/16/24 tablet hydroxyzine HCl 50 mg tablet 50 - 100 mg PO QPM anxiety 10/16/24 10/16/24 trazodone 50 mg tablet 50 mg PO QPM 10/16/24 10/16/24 Previous Rx's ?Medication ?Instructions ?Recorded acetaminophen 500 mg tablet 1,000 mg (2 x 500 mg) PO Q6H PRN 01/03/24 Pain #0 tabs elagolix 200 mg tablet 200 mg PO BID #60 tabs 03/11/24 levonorgestrel 0.15 mg-ethinyl 1 tab PO QDAY #84 tabs 10/16/24 estradiol 0.03 mg tablet Allergies Allergy/AdvReac Type Severity Reaction Status Date / Time No Known Drug Allergies Allergy Verified 10/19/24 18:08 [facility] Medical History (Updated 10/19/24 @ 21:43 by Roque Cuellar MD) Menorrhagia ?N92.0 - Excessive and frequent menstruation with regular cycle (ICD-10) Pelvic pain ?R10.2 - Pelvic and perineal pain (ICD-10) Depression ?F32.A - Depression, unspecified (ICD-10) Anxiety ?F41.9 - Anxiety disorder, unspecified (ICD-10) ADHD ?F90.9 - Attention-deficit hyperactivity disorder, unspecified type (ICD-10) Ovarian cyst ?N83.209 - Unspecified ovarian cyst, unspecified side (ICD-10) Torsion of fallopian tube ?N83.529 - Torsion of fallopian tube, unspecified side (ICD-10) Anemia due to acute blood loss ?D62 - Acute posthemorrhagic anemia (ICD-10) Fracture of right radius ?S52.91XA - Unspecified fracture of right forearm, initial encounter for closed fracture (ICD-10) Sprain of left wrist ?S63.502A - Unspecified sprain of left wrist, initial encounter (ICD-10) Surgical History (Updated 01/18/24 @ 11:28 by Leida Cazares MD) S/P laparoscopy ?Z98.890 - Other specified postprocedural states (ICD-10) S/P ovarian cystectomy ?Z98.890 - Other specified postprocedural states (ICD-10) ?Z87.42 - Personal history of other diseases of the female genital tract (ICD-10) History of open reduction and internal fixation (ORIF) procedure ?Z98.890 - Other specified postprocedural states (ICD-10) Wrist fracture ?S62.109A - Fracture of unspecified carpal bone, unspecified wrist, initial encounter for closed fracture (ICD-10) Arm fracture ?S42.309A - Unspecified fracture of shaft of humerus, unspecified arm, initial encounter for closed fracture (ICD-10) S/P tonsillectomy and adenoidectomy ?Z90.89 - Acquired absence of other organs (ICD-10) Family History Other Diabetes Osteopenia Rheumatoid arthritis Social History Narrative: She lives in [place] 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 [place] Non smoker Rare alcohol use No illicit drug use Smoking Status: Never smoker Do you use any of these nicotine containing products: None Second hand tobacco smoke exposure: No How often do you have a drink containing alcohol: never How often do you have six or more drinks on one occasion: Never AUDIT-C Alcohol total score: 0 Non-prescribed substance use: denies use Caffeine: Yes Are you using contraception or practicing any form of control: No service: No Exam Narrative: Exam Narrative: General: Well-developed and well-nourished, no acute distress Head: Atraumatic and normocephalic Eyes: Pupils are equal reactive, extraocular motions intact, conjunctiva clear ENT: External nose and ears are normal, posterior pharynx without erythema or exudate Neck: No midline cervical tenderness, full spontaneous range of motion the neck, trachea midline, no adenopathy Heart: Regular rate and rhythm, 3 of 6 systolic murmur Lungs: Clear to auscultation bilaterally without wheezes or crackles Abdomen: Soft, nontender, nondistended with active bowel sounds Musculoskeletal: No tenderness, deformity, or edema Neurologic: Awake, alert, and oriented x3. Intermittent stutter but generally fluent speech. No facial asymmetry, no upper extremity drift, slight drift to the left leg with ataxia of the left leg. Visual hollis full. Psych: Mood and affect are appropriate Skin: No rashes Const: Vital Signs, click to edit/add: Vital Signs - 24 hr 10/19/24 17:21 10/19/24 17:56 10/19/24 17:56 Temperature 97.0 F L Pulse Rate Pulse Rate [Pulse Oximeter] 150 H Respiratory Rate 18 Blood Pressure Blood Pressure [Ri ght Upper Arm] 124/75 Pulse Oximetry 100 98 98 Oxygen Delivery Me thod Room Air Room Air 10/19/24 18:00 10/19/24 18:15 Temperature 98.0 F 98.3 F Pulse Rate 116 H 133 H Pulse Rate [Pulse Oximeter] 133 H Respiratory Rate 16 18 Blood Pressure 131/74 133/85 Blood Pressure [Ri ght Upper Arm] 133/85 Pulse Oximetry 98 98 Oxygen Delivery Me thod Room Air Course Course ED Course: Reviewed prior emergency department visit from January 2024 which was follow-up for postoperative pain after laparoscopy for endometriosis. Patient presents today with abrupt onset of left-sided headache, followed by associated intermittent neurologic symptoms including upper lower extremity numbness, right eye lateral visual field defect, suffering, palpitations. On exam here she has intermittent stuttering, slight left leg weakness and ataxia. No other focal neurologic symptoms. CTA is ordered, symptoms do not seem to fit stroke pattern, and patient is not a lytic candidate given time of onset of symptoms. She might be a candidate for thrombectomy if large vessel occlusion is found but no stroke code as NIH stroke scale is 2. Reevaluation(s) Time of Reevaluation #1: 18:10 Reevaluation #1: Care discussed with Dr. Lazcano, [facility], agrees with plan. EKG independently interpreted by me performed at 5:34 p.m. demonstrates sinus tachycardia rate 118, nonspecific ST changes, no acute ischemic changes, normal intervals, normal axis, QTC 392. No prior for comparison. Time of Reevaluation #2: 18:30 Reevaluation #2: CT head independently interpreted by me negative for acute findings. CTA head neck negative for acute large vessel disease. Patient is complaining of some substernal chest pressure, rechecked, reports intermittent substernal chest pressure. D-dimer ordered along with repeat EKG. We discussed reassuring evaluation so far. Repeat EKG performed at 6:51 a.m. demonstrates sinus tachycardia rate 118, nonspecific T-wave changes, no acute ischemic changes, QTC 448, IL 160, no change from prior of earlier today. Time of Reevaluation #3: 20:40 Reevaluation #3: Labs independently interpreted by me with initial troponin 0.03, repeat less than 0.01. Patient recheck, still having intermittent chest pain as well left leg numb, left leg is still slightly weak. Consider admission for MRI in the morning and further cardiac monitoring. Additional Reevaluation(s): 21:[address] Lazcano, Neurology who agrees with plan, recommends MRI with and without contrast of the brain and cervical spine. Vital Signs Vital signs: Initial Vital Signs Temperature 97.0 F L 10/19/24 17:21 Temperature Source Temporal Artery Scan 10/19/24 17:21 Pulse Rate 150 H 10/19/24 17:21 Respiratory Rate 18 10/19/24 17:21 Blood Pressure 124/75 10/19/24 17:21 Blood Pressure Mean 91 10/19/24 17:21 Blood Pressure Position Sitting 10/19/24 17:21 Pulse Oximetry 100 10/19/24 17:21 Oxygen Delivery Method Room Air 10/19/24 17:21 Vital Signs Temperature 97.0 F L 10/19/24 17:21 Pulse Rate 150 H 10/19/24 17:21 Respiratory Rate 18 10/19/24 17:21 Blood Pressure 124/75 10/19/24 17:21 Pulse Oximetry 100 10/19/24 17:21 Oxygen Delivery Method Room Air 10/19/24 17:21 Temperature 98.3 F 10/19/24 18:15 Pulse Rate 133 H 10/19/24 18:15 Respiratory Rate 18 10/19/24 18:15 Blood Pressure 133/85 10/19/24 18:15 Pulse Oximetry 98 10/19/24 18:15 Oxygen Delivery Method Room Air 10/19/24 18:15 Medications Administered Medications: Discontinued Medications Generic Name Dose Route Start Last Admin Trade Name Freq PRN Reason Stop Dose Admin Famotidine 20 mg 10/19/24 18:40 10/19/24 19:28 Famotidine 10 Mg/Ml Inj IVP 10/19/24 18:41 20 mg ONCE ONE Administration Sodium Chloride 1,000 mls @ 1,000 mls/hr 10/19/24 18:00 10/19/24 20:18 0.9 % Sodium Chloride 1000 Ml IV 10/19/24 18:59 Infused .Q1H ROBBIN Infusion Ketorolac Tromethamine 15 mg 10/19/24 17:46 10/19/24 18:18 Ketorolac 15 Mg/Ml Inj IVP 10/19/24 17:47 15 mg ONCE ONE Administration Lidocaine/Aluminum/Magnesium/Simeth 30 ml 10/19/24 18:40 10/19/24 19:25 Mag Hydrox/Aluminum Hyd/Simeth 30 Ml Oral.Susp PO 10/19/24 18:41 30 ml ONCE ONE Administration Lorazepam 0.5 mg 10/19/24 17:46 10/19/24 18:19 Lorazepam 0.5 Mg Tablet PO 10/19/24 17:47 0.5 mg ONCE ONE Administration Ondansetron HCl 4 mg 10/19/24 18:40 10/19/24 19:20 Ondansetron 2 Mg/Ml Inj IVP 10/19/24 18:41 4 mg ONCE ONE Administration MDM - Headache Lab Data Labs: Lab Results 10/19/24 10/19/24 10/19/24 Range/Units 17:40 18:35 18:40 WBC 12.10 H (4.50-11.00) K/uL RBC 4.87 (4.00-5.20) m/uL Hgb 14.6 (12.0-16.0) gm/dL Hct 41.8 (33.0-51.0) % MCV 86 (80-100) fL MCH 30 (26-34) pg MCHC 35 (32-36) gm/dL RDW Coeff of Ti 11.7 (11.5-15.5) % Plt Count 307 (140-440) K/uL Neut % (Auto) 78.5 H (42.0-72.0) % Lymph % (Auto) 14.6 L (20-44) % Fill[place] % (Auto) 5.7 (0.0-11.0) % Eos % (Auto) 0.7 (0.0-7.0) % Baso % (Auto) 0.4 (0.0-3.0) % Neut # (Auto) 9.50 H (1.7-7.0) K/uL Lymph # (Auto) 1.80 (0.90-2.90) K/uL Fill[place] # (Auto) 0.70 (0.00-0.90) K/UL Eos # (Auto) 0.10 (0.00-0.50) K/uL Baso # (Auto) 0.00 (0.00-0.30) K/uL Abs Immat Gran (auto) 0.00 (0.00-0.30) K/uL Imm/Tot Granulo (auto) 0.1 % INR 0.95 (0.91-1.10) APTT 31 (23-33) Seconds D-Dimer Quant (PE/DVT) < 0.27 (0.00-0.50) ug/ml Sodium 138 (135-149) mmol/L Potassium 4.2 (3.6-5.1) mmol/L Chloride 105 (96-114) mmol/L Carbon Dioxide 23 (20-32) mmol/L Anion Gap 10 (7-15) mEq/L BUN 18 (5-24) mg/dL Creatinine 0.7 (0.5-1.5) mg/dL Estimated Creat Clear 118.01 Estimated GFR 125 ml/min Glucose 111 (60-115) mg/dL Calcium 9.9 (8.4-10.6) mg/dL Troponin I 0.03 (0.01-0.04) ng/mL C-Reactive Protein < 0.5 L (0.5-1.0) mg/dL Lab Acknowledgement Test Added Test Added 10/19/24 10/19/24 Range/Units 19:56 21:04 WBC (4.50-11.00) K/uL RBC (4.00-5.20) m/uL Hgb (12.0-16.0) gm/dL Hct (33.0-51.0) % MCV (80-100) fL MCH (26-34) pg MCHC (32-36) gm/dL RDW Coeff of Ti (11.5-15.5) % Plt Count (140-440) K/uL Neut % (Auto) (42.0-72.0) % Lymph % (Auto) (20-44) % Fillmore % (Auto) (0.0-11.0) % Eos % (Auto) (0.0-7.0) % Baso % (Auto) (0.0-3.0) % Neut # (Auto) (1.7-7.0) K/uL Lymph # (Auto) (0.90-2.90) K/uL [place] # (Auto) (0.00-0.90) K/UL Eos # (Auto) (0.00-0.50) K/uL Baso # (Auto) (0.00-0.30) K/uL Abs Immat Gran (auto) (0.00-0.30) K/uL Imm/Tot Granulo (auto) % INR (0.91-1.10) APTT (23-33) Seconds D-Dimer Quant (PE/DVT) (0.00-0.50) ug/ml Sodium (135-149) mmol/L Potassium (3.6-5.1) mmol/L Chloride (96-114) mmol/L Carbon Dioxide (20-32) mmol/L Anion Gap (7-15) mEq/L BUN (5-24) mg/dL Creatinine (0.5-1.5) mg/dL Estimated Creat Clear Estimated GFR ml/min Glucose (60-115) mg/dL Calcium (8.4-10.6) mg/dL Troponin I < 0.01 (0.01-0.04) ng/mL C-Reactive Protein (0.5-1.0) mg/dL Lab Acknowledgement Test Added Discharge Plan Discharge Clinical Impression: Headache, Left leg paresthesias, Left leg weakness, Chest pain, Stuttering Patient Disposition: Admitted As Observation
--- NOTE | 2024-10-19 17:45 | CRLHL7_ITS ---
For Patients: As a result of the Century Cures Act, medical imaging exams and procedure reports are released immediately into your electronic medical record. You may view this report before your referring provider. If you have questions, please contact your health care provider. DATE: 10/19/2024 CLINICAL HISTORY: Patient with focal neurological deficits. TECHNIQUE: Standard helical CT image acquisition through the head and neck was performed after intravenous contrast bolus enhancement. 2D and 3D MIP images for post-processing were performed and interpreted on an independent workstation and 3D images were permanently archived. COMPARISON: CT same day. 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 The origins of the great vessels from the aortic arch are patent. The origin of the right vertebral artery is patent. The origin of the left vertebral artery is patent. The common carotid arteries are patent There is no stenosis at the origin of the right internal carotid artery. There is no stenosis at the origin of the left internal carotid artery. The rest of the cervical segments of the internal carotid arteries are patent up to their intracranial segments. The intracranial segments of the internal carotid arteries are patent. The left vertebral artery is dominant. The cervical segments of the vertebral arteries are patent. The intracranial segments of the vertebral arteries are patent. The middle cerebral arteries are normal without aneurysm or proximal occlusion identified. The anterior cerebral arteries are normal without aneurysm or proximal occlusion identified. The anterior communicating artery is well visualized and appears normal. The basilar artery is normal without aneurysm or occlusion. The posterior cerebral arteries are normal without aneurysm or proximal occlusion. There is normal opacification of major intracranial venous structures. The visualized lung apices are unremarkable The thyroid gland demonstrates a 1.5m heterogeneous lesion in its right lobe. The soft tissues of the neck are unremarkable. There are degenerative changes in the cervical spine. IMPRESSION: 1. Patent cervical and proximal intracranial vasculature. 2. 1.5cm heterogeneous right thyroid lesion. Further evaluation with ultrasound is recommended. Please note that all CT scans at this facility use dose modulation, iterative reconstruction, and/or weight-based dosing when appropriate to reduce radiation dose to as low as reasonably achievable. Dictated by Kvng Otero MD @ 10/19/2024 9:35:23 PM (Electronically Signed)
--- NOTE | 2024-10-19 17:45 | CRLHL7_ITS ---
For Patients: As a result of the Century Cures Act, medical imaging exams and procedure reports are released immediately into your electronic medical record. You may view this report before your referring provider. If you have questions, please contact your health care provider. Indication: DIZZY, N/V, HIGH HR, LOSS OF VISION RT SIDE, STUTTERING Technique: CT of the head without contrast. Coronal and sagittal reformats. Bone and soft tissue windows. Comparison: No prior studies available for comparison at this institution. Findings: No acute intracranial hemorrhage or extra-axial collection. No evidence of acute cortical infarction. No mass effect or midline shift. Normal cerebral volume. The ventricles are normal in size, shape and contour. There is normal melo and white matter differentiation. The orbital contents are normal. No calvarial fractures. No lytic or sclerotic osseous lesions within the calvarium or skull base. Scalp and other imaged soft tissue structures are normal. Mastoid air cells are clear. Paranasal sinuses are well aerated. Impression: No acute intracranial abnormality. Please note that all CT scans at this facility use dose modulation, iterative reconstruction, and/or weight-based dosing when appropriate to reduce radiation dose to as low as reasonably achievable. Dictated by Magdaleno Mendosa MD @ 10/19/2024 6:26:26 PM (Electronically Signed)
[2024-10-19 18:03] LABS: Hematocrit 41.8 % (33.0-51.0); Hemoglobin* 14.6 gm/dL (12.0-16.0); Immature Granulocytes Pct Auto 0.1 %; Mean Corpuscular HGB Conc 35 gm/dL (32-36); Mean Corpuscular Hemoglobin 30 pg (26-34); Mean Corpuscular Volume 86 fL (80-100); RDW Coefficient of Variation % 11.7 % (11.5-15.5); Red Blood Count 4.87 m/uL (4.00-5.20); White Blood Count* 12.10 K/uL (4.50-11.00)
[2024-10-19 18:04] LABS: Immature Granulocytes Abs Auto 0.00 K/uL (0.00-0.30); Lymphocytes Absolute Auto 1.80 K/uL (0.90-2.90); Slide Review Reflex No
[2024-10-19 18:21] LABS: Chloride* 105 mmol/L (96-114); Potassium* 4.2 mmol/L (3.6-5.1); Sodium* 138 mmol/L (135-149)
[2024-10-19 18:24] LABS: Anion Gap 10 mEq/L (7-15); Blood Urea Nitrogen* 18 mg/dL (5-24); Carbon Dioxide* 23 mmol/L (20-32); Creatinine* 0.7 mg/dL (0.5-1.5); Est. Creatinine Clearance* 118.01; Estimated Glomerular Filt Rate 125 ml/min
[2024-10-19 18:25] LABS: Calcium* 9.9 mg/dL (8.4-10.6); Glucose* 111 mg/dL (60-115)
[2024-10-19 18:58] LABS: D Dimer Quantitative* < 0.27 ug/ml (0.00-0.50); INR 0.95 (0.91-1.10); Prothrombin Time 13.5 Seconds
[2024-10-19] MEDS: ONDANSETRON 2 MG/ML inj 4 MG IVP (19:20)
[2024-10-19] MEDS: MAG HYDROX/ALUMINUM HYD/SIMETH 30 ML ORAL.SUSP PO (19:25)
[2024-10-19] MEDS: FAMOTIDINE 10 MG/ML inj 20 MG IVP (19:28)
[2024-10-19 22:25] LABS: Cannabinoid Screen Urine Negative (Negative); Methamphetamines Screen Urine Negative (Negative); Tricyclic Antidepressant Urine Negative (Negative)
--- NOTE | 2024-10-19 22:52 | PM.IMHP1 ---
Assessment and Plan Assessment and plan (1) Stuttering: Status: Acute (2) Chest pain: Status: Acute (3) Left leg weakness: Status: Acute (4) Left leg paresthesias: Status: Acute (5) Headache: Status: Acute (6) ADHD: Problem comment: Hold Adderall. Status: Chronic (7) Anxiety: Problem comment: Likely contributing to symptoms. Will continue olanzepine, but hold trazodone and hydroxyzine so they don't obscure neuro exam. Status: Chronic (8) Thyroid lesion: Problem comment: - 10/19/24 CTA neck: 1.5cm heterogeneous right thyroid lesion. Further evaluation with ultrasound is recommended. Status: Acute Plan 24-year-old female with sudden onset of a host of symptoms as above. She does have a history of migraines, but without aura. Differential includes migraine with aura, anxiety, multiple sclerosis, stroke, tick-borne illness, etc.. Patient's urine tox screen is not surprising given that she takes Adderall daily at home and received lorazepam in the emergency department. Tick-borne illness and Lyme test are pending. Will monitor overnight with acute 2 hour neuro checks, telemetry, and obtain echocardiogram and MRI brain in the morning. Total Time Spent Total Time Spent: Time spent: Today I spent 75 minutes seeing the patient, discussing with the patient and her family, discussing the patient with ER staff, reviewing Expanse and EPIC notes/diagnostics, discussing the care plan with nursing, and documenting my impressions and plan in the medical record. Hospitalist- H&P: HPI History of Present Illness Time Seen by Provider: 22:53 Date Seen: 10/19/24 Chief complaint: High heart rate, dizziness, nausea, headache Narrative: Vivi Whitehead is a 24 year old female with a history of ADHD, anxiety, depression, right strabismus, endometriosis, ovarian cyst, and torsion of the fallopian tube who presented with a plethora of symptoms which included vision changes, headaches, palpitations that began suddenly today. She tells me that she was in her usual state of health with no recent illnesses and had gone car shopping earlier today, which was a little stressful. ER provider reported that Vivi told him her symptoms started around noon to 12 30 p.m. today. Her mother and 2 brothers are with her as I am admitting her this evening and she tells me that her symptoms started abruptly at 1:00 p.m. when she noticed that the right side of her vision was gone. Around that time she had also noticed some squiggly floaters or a star/galaxy like light formation in her right vision. She gets migraine headaches a couple times a year, but has since never had an aura before. About 30 minutes later she developed left scientology and midface pain around her left eye. The pain seemed to be moving around and she went to bed tried to sleep it off like a migraine. She noted that she was shaky at times and felt that her heart was doing a ?weird thing? sometimes as well. She describes this as fluttering and a feeling that her heart stops. She then would take a big breath which would feel like it started her heart again and then she would get pressure in her head. This fluttering and strange feeling of her heart stopping is not new and has happened many times in her life. 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 She has not had any cardiac workup or echocardiograms. Around 430 p.m. she was around 1 of her brothers, Otoniel, when he noted that she was stuttering, which she has never done before, and she was walking around like she was drunk and unsteady on her feet. She tells me that around this time everything seemed to go even more down hill and she felt shaky, some chest pain that radiated to both arms and hands and then her whole face went numb and then she developed a tingling sensation in both hands and both feet. These symptoms also have come and gone, but all of it has gotten much better with time. This point she pain-free, denies chest pain right now, but has had it periodically since coming to the ER. She still has a small amount of pressure or pain in her left scientology area, feels shaky at times and continues to stutter. She is not having any difficulty word finding. The ER doctor noted some left leg weakness. Her mom states that from the ER exam to my exam, it appears that she can now do things with her left leg was not able to do in the ER. Review of Systems Status of ROS: Reports: 10 or more systems reviewed and unremarkable except as noted in History and below Medical Decision Making Medical Decision Making Code Status: Full code Has patient completed a Health Care Directive: No During This Stay, Who Would You Like To Make Decisions For You In The Event You Are Unable To Make Them For Yourself?: Michelle Whitehead, mom [facility] Medical History (Updated 10/20/24 @ 00:03 by Lindy Tarango MD) Endometriosis ?N80.9 - Endometriosis, unspecified (ICD-10) Menorrhagia ?N92.0 - Excessive and frequent menstruation with regular cycle (ICD-10) Pelvic pain ?R10.2 - Pelvic and perineal pain (ICD-10) Depression ?F32.A - Depression, unspecified (ICD-10) Anxiety ?F41.9 - Anxiety disorder, unspecified (ICD-10) ADHD ?F90.9 - Attention-deficit hyperactivity disorder, unspecified type (ICD-10) Ovarian cyst ?N83.209 - Unspecified ovarian cyst, unspecified side (ICD-10) Torsion of fallopian tube ?N83.529 - Torsion of fallopian tube, unspecified side (ICD-10) Anemia due to acute blood loss ?D62 - Acute posthemorrhagic anemia (ICD-10) Fracture of right radius ?S52.91XA - Unspecified fracture of right forearm, initial encounter for closed fracture (ICD-10) Sprain of left wrist ?S63.502A - Unspecified sprain of left wrist, initial encounter (ICD-10) Surgical History (Updated 10/19/24 @ 23:52 by Lindy Tarango MD) S/P laparoscopy ?Z98.890 - Other specified postprocedural states (ICD-10) S/P ovarian cystectomy ?Z98.890 - Other specified postprocedural states (ICD-10) ?Z87.42 - Personal history of other diseases of the female genital tract (ICD-10) History of open reduction and internal fixation (ORIF) procedure ?Z98.890 - Other specified postprocedural states (ICD-10) Wrist fracture ?S62.109A - Fracture of unspecified carpal bone, unspecified wrist, initial encounter for closed fracture (ICD-10) Arm fracture ?S42.309A - Unspecified fracture of shaft of humerus, unspecified arm, initial encounter for closed fracture (ICD-10) S/P tonsillectomy and adenoidectomy ?Z90.89 - Acquired absence of other organs (ICD-10) Family History Other Diabetes Osteopenia Rheumatoid arthritis Social History Narrative: She lives in [place] 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 Rare alcohol use No illicit drug use Smoking Status: Never smoker Do you use any of these nicotine containing products: None Second hand tobacco smoke exposure: No How often do you have a drink containing alcohol: never How often do you have six or more drinks on one occasion: Never AUDIT-C Alcohol total score: 0 Non-prescribed substance use: denies use Caffeine: Yes Are you using contraception or practicing any form of control: No service: No Meds Home Medications and Allergies Home Medications ?Medication ?Instructions ?Recorded ?Confirmed ?Type olanzapine 2.5 mg tablet 2.5 mg PO QDAY 12/27/23 10/19/24 History dextroamphetamine-amphetamine 5 mg 1 tab PO DAILY 10/16/24 10/19/24 History tablet hydroxyzine HCl 50 mg tablet 50 - 100 mg PO QPM anxiety 10/16/24 10/19/24 History levonorgestrel 0.15 mg-ethinyl 1 tab PO QDAY #84 tabs 10/16/24 10/19/24 Rx estradiol 0.03 mg tablet trazodone 50 mg tablet 50 mg PO QPM PRN 10/16/24 10/19/24 History Allergies Allergy/AdvReac Type Severity Reaction Status Date / Time No Known Drug Allergies Allergy Verified 10/19/24 18:08 Exam Narrative: Exam Narrative: General: Anxious. Awake alert oriented x3. HEENT: Normocephalic atraumatic, pupils equally round and reactive to light and accommodation. Oropharynx clear. Mucous membranes are moist. No cervical lymphadenopathy, thyromegaly or carotid bruits. No JVD. Cardiovascular: Regular rate and rhythm. Jaundice 6 systolic murmur loudest at the apex. Chest: No increased work of breathing. Clear to auscultation bilaterally. No crackles or wheezes. Abdomen: Bowel sounds present. Soft, nondistended, nontender. No hepatosplenomegaly or masses. Extremities: No edema, no cyanosis or clubbing. Skin: No jaundice, no pallor, no rashes on visible skin. Neuro: There are no focal deficits. Occasional stutter. No difficulty with word finding, no slurred speech. Romberg is negative. Cranial nerves 2-12 are intact. Extraocular movements are full. No nystagmus. No facial asymmetry. Tongue is midline. Peripheral vision and vision are grossly intact. Strength is 4+ out of 5 in the left lower extremity, 5/5 in the other 3 extremities. Coordination is slightly clumsy with left lower extremity otherwise intact in both upper upper and right lower extremities. Const: Vital Signs, click to edit/add: Vital Signs - 24 hr 10/19/24 17:21 10/19/24 17:56 10/19/24 17:56 Temperature 97.0 F L Pulse Rate Pulse Rate [Pulse Oximeter] 150 H Respiratory Rate 18 Blood Pressure Blood Pressure [Ri ght Upper Arm] 124/75 Pulse Oximetry 100 98 98 Oxygen Delivery Me thod Room Air Room Air 10/19/24 18:00 10/19/24 18:15 Temperature 98.0 F 98.3 F Pulse Rate 116 H 133 H Pulse Rate [Pulse Oximeter] 133 H Respiratory Rate 16 18 Blood Pressure 131/74 133/85 Blood Pressure [Ri ght Upper Arm] 133/85 Pulse Oximetry 98 98 Oxygen Delivery Ok thod Room Air Hospitalist - H&P: Result Labs Labs: Short CBC 10/19/24 Range/Units 17:40 WBC 12.10 H (4.50-11.00) K/uL Hgb 14.6 (12.0-16.0) gm/dL Hct 41.8 (33.0-51.0) % Plt Count 307 (140-440) K/uL BMP 10/19/24 17:40 Sodium 138 Potassium 4.2 Chloride 105 Carbon Dioxide 23 BUN 18 Creatinine 0.7 Glucose 111 Calcium 9.9 Cardiac Enzymes 10/19/24 10/19/24 Range/Units 17:40 19:56 Troponin I 0.03 < 0.01 (0.01-0.04) ng/mL Urine tox screen is positive for amphetamines and benzodiazepines. 10/19/2024 5:30 p.m. EKG: Sinus tachycardia, 118 beats per minute, possible left atrial enlargement, ST and T-wave abnormality, consider inferior ischemia. 10/19/2024 6:51 p.m. EKG: Sinus tachycardia, 118 beats per minute, possible left atrial enlargement, nonspecific T-wave abnormality. Ordering Physician: Roque Cuellar M.D. Date of Service: 10/19/24 Procedure(s): CT head/brain wo con Accession Number(s): [id number] cc: Kayley Diaz M.D.; Roque Cuellar M.D.~ For Patients: As a result of the Cures Act, medical imaging exams and procedure reports are released immediately into your electronic medical record. You may view this report before your referring provider. If you have questions, please contact your health care provider. Indication: DIZZY, N/V, HIGH HR, LOSS OF VISION RT SIDE, STUTTERING Technique: CT of the head without contrast. Coronal and sagittal reformats. Bone and soft tissue windows. Comparison: No prior studies available for comparison at this institution. Findings: No acute intracranial hemorrhage or extra-axial collection. No evidence of acute cortical infarction. No mass effect or midline shift. Normal cerebral volume. The ventricles are normal in size, shape and contour. There is normal melo and white matter differentiation. The orbital contents are normal. No calvarial fractures. No lytic or sclerotic osseous lesions within the calvarium or skull base. Scalp and other imaged soft tissue structures are normal. Mastoid air cells are clear. Paranasal sinuses are well aerated. Impression: No acute intracranial abnormality. Please note that all CT scans at this facility use dose modulation, iterative reconstruction, and/or weight-based dosing when appropriate to reduce radiation dose to as low as reasonably achievable. Dictated by Magdaleno Mendosa MD @ 10/19/2024 6:26:26 PM (Electronically Signed) Ordering Physician: Roque Cuellar M.D. Date of Service: 10/19/24 Procedure(s): CT angio head Accession Number(s): [id number] cc: Kayley Diaz M.D.; Roque Cuellar M.D.~ For Patients: As a result of the Cures Act, medical imaging exams and procedure reports are released immediately into your electronic medical record. You may view this report before your referring provider. If you have questions, please contact your health care provider. DATE: 10/19/2024 CLINICAL HISTORY: Patient with focal neurological deficits. TECHNIQUE: Standard helical CT image acquisition through the head and neck was performed after intravenous contrast bolus enhancement. 2D and 3D MIP images for post-processing were performed and interpreted on an independent workstation and 3D images were permanently archived. COMPARISON: CT same day. 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 The origins of the great vessels from the aortic arch are patent. The origin of the right vertebral artery is patent. The origin of the left vertebral artery is patent. The common carotid arteries are patent There is no stenosis at the origin of the right internal carotid artery. There is no stenosis at the origin of the left internal carotid artery. The rest of the cervical segments of the internal carotid arteries are patent up to their intracranial segments. The intracranial segments of the internal carotid arteries are patent. The left vertebral artery is dominant. The cervical segments of the vertebral arteries are patent. The intracranial segments of the vertebral arteries are patent. The middle cerebral arteries are normal without aneurysm or proximal occlusion identified. The anterior cerebral arteries are normal without aneurysm or proximal occlusion identified. The anterior communicating artery is well visualized and appears normal. The basilar artery is normal without aneurysm or occlusion. The posterior cerebral arteries are normal without aneurysm or proximal occlusion. There is normal opacification of major intracranial venous structures. The visualized lung apices are unremarkable The thyroid gland demonstrates a 1.5m heterogeneous lesion in its right lobe. The soft tissues of the neck are unremarkable. There are degenerative changes in the cervical spine. IMPRESSION: 1. Patent cervical and proximal intracranial vasculature. 2. 1.5cm heterogeneous right thyroid lesion. Further evaluation with ultrasound is recommended. Please note that all CT scans at this facility use dose modulation, iterative reconstruction, and/or weight-based dosing when appropriate to reduce radiation dose to as low as reasonably achievable. Dictated by Kvng Otero MD @ 10/19/2024 9:35:23 PM (Electronically Signed)
[2024-10-20] VITALS (11 sets, daily range): BP systolic 102–115; BP diastolic 54–79; PULSE 60–106; RESP 16–18; TEMP 36.7–36.9; O2SAT 96–99
--- NOTE | 2024-10-20 04:22 | PC.NURSE ---
Pt remained calm and relaxed all night. HR went from Sinus tach to NSR. Neuroes unremarkable. Left leg strength returned and equal to right. Pt still stuttering with speech but talking appropriately. No visual changes overnight. No Tremors. No tingling in extremities. Awaiting Ct in AM. Pt does have a retainer in mouth noted on MRI questionnaire.
--- NOTE | 2024-10-20 07:00 | CRLHL7_ITS ---
For Patients: As a result of the Century Cures Act, medical imaging exams and procedure reports are released immediately into your electronic medical record. You may view this report before your referring provider. If you have questions, please contact your health care provider. Indication: Right lateral vision loss. Left leg weakness. Technique: Multiplanar, multisequence MRI of the brain was performed without and with intravenous contrast. Contrast: 13 cc Dotarem. Comparison: CT head 10/19/2024. Findings: The corpus callosum, pituitary gland and clivus appear intact. Craniocervical junction appears preserved. There is no restricted diffusion. No intracranial hemorrhage. The ventricles are proportionate to the cerebral sulci. The 4th ventricle appears midline. The basal cisterns appear patent. No abnormal extra-axial fluid collection identified. There is no intracranial mass, abnormal mass-effect or midline shift identified. No abnormal enhancement. Major intracranial vascular flow voids appear grossly intact. Both globes are preserved. Impression: Unremarkable MRI of the brain. Dictated by Odin Roman MD @ 10/20/2024 9:10:04 AM (Electronically Signed)
[2024-10-20] MEDS: SODIUM CHLORIDE 0.9 % (FLUSH) 10 ML SYRINGE 5 ML IVF (09:23)
--- NOTE | 2024-10-20 09:53 | REH.SLP ---
[employer] orders received, chart reviewed and spoke with RN prior to seeing patient. New onset stuttering along with other symptoms. MRI is negative. Spoke with patient and her mother about the possibility of drug induced stuttering as she has somewhat recently started Adderall-unclear of when she actually started taking it and how consistently. Gave patient a few strategies (easy onset, placement focus) to try during stuttering occurances. Patient and mother report that the stuttering is getting better. If it does not resolve, recommend OP speech therapy. Will continue to check status during stay.
[2024-10-20 10:01] LABS: Albumin* 4.3 g/dL (3.3-5.0); Chloride* 106 mmol/L (96-114); Potassium* 4.0 mmol/L (3.6-5.1); Sodium* 138 mmol/L (135-149)
[2024-10-20 10:03] LABS: Alanine Aminotransferase* 18 U/L (4-35); Aspartate Amino Transferase* 27 U/L (12-35); Blood Urea Nitrogen* 15 mg/dL (5-24); Creatinine* 0.8 mg/dL (0.5-1.5); Est. Creatinine Clearance* 103.26; Estimated Glomerular Filt Rate 107 ml/min
[2024-10-20 10:04] LABS: Alkaline Phosphatase* 62 U/L (40-150); Anion Gap 6 mEq/L (7-15); Bilirubin Total* 0.5 mg/dL (0.1-1.5); Calcium* 9.5 mg/dL (8.4-10.6); Carbon Dioxide* 26 mmol/L (20-32); Glucose* 93 mg/dL (60-115); Total Protein* 7.2 g/dL (6.0-8.3)
[2024-10-20] MEDS: ACETAMINOPHEN 500 MG TABLET 1000 MG PO (12:50)
--- NOTE | 2024-10-20 13:16 | P.DS_ITS ---
DS: Providers Provider Date Seen: 10/20/24 Date of admission: 10/19/24 22:09 Admitting Clinician: Lindy Tarango MD Consults: 10/20/24 09:12 Consult to Speech Therapy [CONS] Routine Comment: Reason(s) for Speech Consult:: Speaking Difficulty Attending Physician on discharge: Mindy Stanley MD Date of Discharge: 10/20/24 DS: Diagnosis Discharge Diagnosis (1) Stuttering: Status: Acute Problem details: - seen by Stroke Neuro, thought to be 2/2 migraine variant, no needs identified by Speech Therapy (2) Chest pain: Status: Acute Problem details: - resolved, TTE pending, home on Zio patch (3) Left leg weakness: Status: Acute Problem details: - resolved (4) Left leg paresthesias: Status: Acute Problem details: - resolved (5) Headache: Status: Acute Problem details: - improved (6) ADHD: Status: Chronic Problem details: - held Adderall during stay (7) Anxiety: Status: Chronic Problem details: - likely contributing to symptoms. Will continue olanzapine, but hold trazodone and hydroxyzine so they don't obscure neuro exam. (8) Thyroid lesion: Status: Acute Problem details: - 10/19/24 CTA neck: 1.5cm heterogeneous right thyroid lesion. Further evaluation with ultrasound is recommended - patient and mother aware DS: Summary Hospital Course Hospital Course: Vivi was admitted to the hospital for a headache with associated symptoms of L sided paresthesias, stuttering, tachycardia. Head and neck CTA reassuring, as was brain MRI. Intermittent sinus tachycardia (notes at home that occasionally Apple Watch will read up to HR of 165 at rest); TTE pending, will d/c home on Zio patch. Seen by Stroke Neurology who felt that this was likely migraine variant, improved with Tylenol and caffeine. No needs identified by speech therapy. Appropriate for discharge home with close PCP follow-up (for newly diagnosed thyroid nodule, Zio patch follow-up) on 10/20/24. Status at Discharge Functional status at discharge: independent ambulation Overall status at discharge: patient is progressing back to baseline Time Spent with Patient Time attestation: Total time spent providing and/or coordinating discharge services: Time spent: Greater than 30 minutes Specific discharge activities: updating patient and mother on plan of care, med rec Exam Narrative: Exam Narrative: GEN: Alert and oriented, nontoxic HEENT: EOMIs bilaterally, no scleral icterus CV: RRR (rate in the 90s during my exam), soft systolic murmur without concerning features R: LCTA bilaterally Ext: wwp, no concerning edema Skin: No concerning skin lesions or rashes on exposed skin Neuro: Intermittent stuttering during exam, clears for 2-3 sentences. Improved throughout the day. No resting tremor, gait not observed Psych: Appropriate Const: Vital Signs, click to edit/add: Vital Signs - 24 hr 10/19/24 17:21 10/19/24 17:56 10/19/24 17:56 Temperature 97.0 F L Pulse Rate Pulse Rate [Pulse Oximeter] 150 H Pulse Rate [Right Radial] Respiratory Rate 18 Blood Pressure Blood Pressure [Ri ght Arm] Blood Pressure [Ri ght Upper Arm] 124/75 Pulse Oximetry 100 98 98 Oxygen Delivery [facility] Room Air Room Air 10/19/24 18:00 10/19/24 18:15 10/19/24 22:57 Temperature 98.0 F 98.3 F 99.1 F Pulse Rate 116 H 133 H Pulse Rate [Pulse Oximeter] 133 H Pulse Rate [Right Radial] 117 H Respiratory Rate 16 18 16 Blood Pressure 131/74 133/85 Blood Pressure [Ri ght Arm] 126/80 Blood Pressure [Ri ght Upper Arm] 133/85 Pulse Oximetry 98 98 99 Oxygen Delivery [facility] Room Air Room Air 10/19/24 22:59 10/19/24 23:00 10/19/24 23:41 Temperature 99.1 F 99.1 F Pulse Rate 133 H Pulse Rate [Pulse Oximeter] Pulse Rate [Right Radial] 117 H 117 H Respiratory Rate 16 16 16 Blood Pressure 133/85 Blood Pressure [Ri ght Arm] 126/80 126/80 Blood Pressure [Ri ght Upper Arm] Pulse Oximetry 99 99 99 Oxygen Delivery [facility] Room Air Room Air Room Air 10/19/24 23:44 10/20/24 00:03 10/20/24 00:12 Temperature Pulse Rate 106 H Pulse Rate [Pulse Oximeter] Pulse Rate [Right Radial] 117 H 106 H Respiratory Rate 16 Blood Pressure Blood Pressure [Ri ght Arm] Blood Pressure [Ri ght Upper Arm] Pulse [facility]xim[facility] 02:05 10/20/24 02:06 10/20/24 03:56 Temperature 98.4 F Pulse Rate Pulse Rate [Pulse Oximeter] Pulse Rate [Right Radial] 75 79 79 Respiratory Rate 16 Blood Pressure Blood Pressure [Ri ght Arm] 102/54 L Blood Pressure [Ri ght Upper Arm] Pulse Oximetry 99 Oxygen Delivery [facility] Room Air 10/20/24 05:41 10/20/24 07:00 10/20/24 07:00 Temperature Pulse Rate 86 Pulse Rate [Pulse Oximeter] Pulse Rate [Right Radial] 60 84 Respiratory Rate 18 Blood Pressure Blood Pressure [Ri ght Arm] 115/79 Blood Pressure [Ri ght Upper Arm] Pulse Oximetry 99 Oxygen Delivery [facility] Room Air 10/20/24 08:00 10/20/24 10:00 10/20/24 11:00 Temperature 98.4 F Pulse Rate Pulse Rate [Pulse Oximeter] Pulse Rate [Right Radial] 84 90 90 Respiratory Rate 18 Blood Pressure Blood Pressure [Ri ght Arm] 111/71 Blood Pressure [Ri ght Upper Arm] Pulse Oximetry 96 Oxygen Delivery [facility] Room Air DS: Data Data Completed and Pending Completed studies during hospitalization: Procedures Drainage of Pelvic Cavity, Percutaneous Endoscopic Approach (04/02/22) Excision of Left Ovary, Percutaneous Endoscopic Approach (04/02/22) Resection of Left Fallopian Tube, Percutaneous Endoscopic Approach (04/02/22) Resection of Left Ovary, Percutaneous Endoscopic Approach (04/02/22) Labs on day of discharge: Labs from last 24 hours 10/20/24 10/19/24 10/19/24 09:30 22:05 21:04 WBC RBC Hgb Hct MCV MCH MCHC RDW Coeff of Ti Plt Count Neut % (Auto) Lymph % (Auto) [place] % (Auto) Eos % (Auto) Baso % (Auto) Neut # (Auto) Lymph # (Auto) [place] # (Auto) Eos # (Auto) Baso # (Auto) Abs Immat Gran (auto) Imm/Tot Granulo (auto) INR APTT D-Dimer Quant (PE/DVT) Sodium 138 Potassium 4.0 Chloride 106 Carbon Dioxide 26 Anion Gap 6 L BUN 15 Creatinine 0.8 Estimated Creat Clear 103.26 Estimated GFR 107 Glucose 93 Hemoglobin A1c 4.9 Calcium 9.5 Magnesium 1.9 Total Bilirubin 0.5 AST 27 ALT 18 Alkaline Phosphatase 62 Troponin I < 0.01 C-Reactive Protein Total Protein 7.2 Albumin 4.3 TSH Urine Opiates Screen Negative Ur Buprenorphine Scrn Negative Ur Oxycodone Screen Negative Urine Methadone Screen Negative Ur Barbiturates Screen Negative U Tricyclic Antidepress Negative Ur Phencyclidine Scrn Negative Ur Amphetamines Screen POSITIVE A U Methamphetamines Scrn Negative U Benzodiazepines Scrn POSITIVE A Urine Cocaine Screen Negative U Marijuana (THC) Screen Negative Ur Drug Screen Comment See Note A. phagocytophilum DNA Babesia Species (PCR) Lyme Disease Antibody E.ewingii/canis DNA PCR E. muris-like DNA (PCR) Babesia microti (PCR) E. chaffeensis (PCR) Lab Acknowledgement Test Added 10/19/24 10/19/24 10/19/24 19:56 18:40 18:35 WBC RBC Hgb Hct MCV MCH MCHC RDW Coeff of Ti Plt Count Neut % (Auto) Lymph % (Auto) [place] % (Auto) Eos % (Auto) Baso % (Auto) Neut # (Auto) Lymph # (Auto) [place] # (Auto) Eos # (Auto) Baso # (Auto) Abs Immat Gran (auto) Imm/Tot Granulo (auto) INR APTT D-Dimer Quant (PE/DVT) Sodium Potassium Chloride Carbon Dioxide Anion Gap BUN Creatinine Estimated Creat Clear Estimated GFR Glucose Hemoglobin A1c Calcium Magnesium Total Bilirubin AST ALT Alkaline Phosphatase Troponin I < 0.01 C-Reactive Protein Total Protein Albumin TSH Urine Opiates Screen Ur Buprenorphine Scrn Ur Oxycodone Screen Urine Methadone Screen Ur Barbiturates Screen U Tricyclic Antidepress Ur Phencyclidine Scrn Ur Amphetamines Screen U Methamphetamines Scrn U Benzodiazepines Scrn Urine Cocaine Screen U Marijuana (THC) Screen Ur Drug Screen Comment A. phagocytophilum DNA Babesia Species (PCR) Lyme Disease Antibody E.ewingii/canis DNA PCR E. muris-like DNA (PCR) Babesia microti (PCR) E. chaffeensis (PCR) Lab Acknowledgement Test Added Test Added 10/19/24 10/19/24 17:45 17:40 WBC 12.10 H RBC 4.87 Hgb 14.6 Hct 41.8 MCV 86 MCH 30 MCHC 35 RDW Coeff of Ti 11.7 Plt Count 307 Neut % (Auto) 78.5 H Lymph % (Auto) 14.6 L [place] % (Auto) 5.7 Eos % (Auto) 0.7 Baso % (Auto) 0.4 Neut # (Auto) 9.50 H Lymph # (Auto) 1.80 [place] # (Auto) 0.70 Eos # (Auto) 0.10 Baso # (Auto) 0.00 Abs Immat Gran (auto) 0.00 Imm/Tot Granulo (auto) 0.1 INR 0.95 APTT 31 D-Dimer Quant (PE/DVT) < 0.27 Sodium 138 Potassium 4.2 Chloride 105 Carbon Dioxide 23 Anion Gap 10 BUN 18 Creatinine 0.7 Estimated Creat Clear 118.01 Estimated GFR 125 Glucose 111 Hemoglobin A1c Calcium 9.9 Magnesium Total Bilirubin AST ALT Alkaline Phosphatase Troponin I 0.03 C-Reactive Protein < 0.5 L Total Protein Albumin TSH 2.100 Urine Opiates Screen Ur Buprenorphine Scrn Ur Oxycodone Screen Urine Methadone Screen Ur Barbiturates Screen U Tricyclic Antidepress Ur Phencyclidine Scrn Ur Amphetamines Screen U Methamphetamines Scrn U Benzodiazepines Scrn Urine Cocaine Screen U Marijuana (THC) Screen Ur Drug Screen Comment A. phagocytophilum DNA Pending Babesia Species (PCR) Pending Lyme Disease Antibody Pending E.ewingii/canis DNA PCR Pending E. muris-like DNA (PCR) Pending Babesia microti (PCR) Pending E. chaffeensis (PCR) Pending Lab Acknowledgement Discharge Plan Discharge Disposition: Home, Self-Care Date of Admission: 10/19/24 22:09 Attending Provider on Discharge: Mindy Stanley Primary Care Provider: Kayley Diaz Condition: Improved Anticipated Discharge Date/Time: 10/20/24 13:17 Discharge Medications: Continued olanzapine 2.5 mg tablet 2.5 mg PO QDAY trazodone 50 mg tablet 50 mg PO QPM PRN hydroxyzine HCl 50 mg tablet 50 - 100 mg PO QPM dextroamphetamine-amphetamine 5 mg tablet 1 tab PO DAILY Held levonorgestrel-ethinyl estrad 0.15-0.03 mg tablet 1 tab PO QDAY Qty: 84 4RF Hold Instructions: Hold until f/u appt with Dr. Cazares to discuss further Discharge Orders: Discharge Order (Routine); Ordered 10/20/24 Ordered By: Mindy Stanley Patient Education: Migraine Headache (GEN), Thyroid Nodules (DC), Tachycardia (GEN) Additional Instructions: See Dr. Cazares in f/u to discuss whether or not to start your OCPs. You also need to follow up to discuss your thyroid nodule and your Heart Rate/Z io patch results. Dr. Argelia Aaln in [place] would be a great PCP option for you. Neurology felt that your symptoms represented an atypical migraine; try Excedrin headache (or take 1000mg of Tylenol + caffeine) if this were to happen again. You are always welcome to be seen in ER or UC again as well. Activity Level: Activity as Tolerated Discharge Diet: Regular Follow Up Appointments: Leida Cazares MD [Staff Physician, GRAPPLE OPERATOR] - 10/30/24 10:15 am [facility]. Second appointment Dec 03, 2024 @9:15 Kath Alan MD [Staff Physician, Family Practice] Referral Note: [facility] patient, [facility], [facility], hospital f/u, Zio review, thyroid nodule. 2-3 weeks please Forms: Patient Belongings, MyHealth Info Instructions
--- NOTE | 2024-10-20 14:24 | PC.NURSE ---
End of Shift Note: Patient went for a MRI early this am. She did have a headache which she received Tylenol for which appears to have given her some relief. She is currently awaiting to have an echocardiogram done and if that is ok will be discharging home. Will continue to monitor until next shift arrives.
--- NOTE | 2024-10-20 17:05 | REH.OT ---
OT: Initially in rounds, MD requesting OT to be completed after MRI, later informed no OT needs or eval needed per MD.
--- NOTE | 2024-10-20 17:57 | PC.NURSE ---
Discharge: Patient pleasant and cooperative, A&O. VSS, afebrile. SpO2 maintained above 90% on RA. Denies pain. IV removed with tip intact. Discharge instructions provided, all questions answered. D/C to home with family.
[2024-10-21 23:19] LABS: Lyme ELISA Reflex 0.37 IV (<=0.90)
[2024-10-23 13:39] LABS: Anaplasma phagocyt PCR Not Detected
== END 2024-10-20 17:45 | disposition home or self-care (01) ==
LOC: ED 21:39 → MEDSURG 22:10
PROVIDERS: Family Medicine; Admitting Provider Family Medicine; Emergency Provider Family Medicine; PCP Family Medicine; Visit Provider Family Medicine
DX: F98.5 Adult onset fluency disorder (principal); R51.9 Headache, unspecified; R20.2 Paresthesia of skin; R07.9 Chest pain, unspecified; F90.9 Attention-deficit hyperactivity disorder, unspecified type; F41.9 Anxiety disorder, unspecified; E07.9 Disorder of thyroid, unspecified
CPT/HCPCS: 36415; 70450; 70496; 70498; 70553; 80048; 80053; 80306; 82962; 83036; 83735; 84443; 84484; 85025; 85379; 85610; 85730; 86140; 86618; 87468; 87469; 87484; 87798; 93005; 93246; 93306; 94761; 96374; 96375; 99285; A9270; A9575; G0378; J1308; J1885; J2405; J7030; Q9967

== ENCOUNTER 2024-10-27 14:32 | Outpatient (CLI) | payer OTHER, SELFPAY ==
--- NOTE | 2024-10-27 14:45 | CRLHL7_ITS ---
For Patients: As a result of the Century Cures Act, medical imaging exams and procedure reports are released immediately into your electronic medical record. You may view this report before your referring provider. If you have questions, please contact your health care provider. INDICATION: Pelvic pain COMPARISON: 12/12/2023 TECHNIQUE: 2D etienne-scale and color Doppler images were acquired of the pelvis using a transabdominal and transvaginal approach. Transvaginal imaging performed to better visualize the endometrial stripe and ovaries. Spectral Doppler evaluation of the right ovary also performed due to the history of pain. FINDINGS: Sonographic images demonstrate a normal size and smooth outer contour of the uterus. Uterus measures 7.5 cm in length by 3.3 cm in AP diameter by 4.1 cm in transverse dimension. The myometrium has a normal uniform echotexture. The endometrial lining appears normal and measures 8.8 mm in composite thickness. The right ovary measures 4.4 x 2.8 x 3.1 cm in size and the left ovary is surgically absent. The right ovary demonstrates normal arterial and venous blood flow on color Doppler analysis. There are no suspicious fluid collections within the cul-de-sac. Simple circumscribed right ovarian cyst measures 2.7 x 1.9 x 2.1 cm. Normal spectral Doppler of the right ovary also noted. IMPRESSION: Simple right ovarian cyst is present which measures 2.7 cm. No torsion or excess pelvic free fluid. Dictated by Magdaleno Shelton MD @ 10/27/2024 3:21:55 PM (Electronically Signed)
== END 2024-10-27 14:33 | disposition home or self-care (01) ==
LOC: US 14:32
PROVIDERS: PCP Family Medicine; Visit Provider Obstetrics & Gynecology
DX: R10.2 Pelvic and perineal pain (principal)
CPT/HCPCS: 76830; 76856; 93976

== ENCOUNTER 2024-10-31 14:30 | Outpatient (CLI) | payer OTHER, SELFPAY ==
--- NOTE | 2024-10-31 14:45 | CRLHL7_ITS ---
For Patients: As a result of the Century Cures Act, medical imaging exams and procedure reports are released immediately into your electronic medical record. You may view this report before your referring provider. If you have questions, please contact your health care provider. INDICATION: Thyroid nodule COMPARISON: CT 10/19/2024 TECHNIQUE: Buitrago scale and color Doppler images were acquired of the thyroid gland. FINDINGS: Slightly heterogeneous solid nodule within the right thyroid lobe measures 2.3 x 1.1 x 1.6 cm, TR 4. Isthmus measures 2 millimeters. The right lobe measures 4.9 x 1.7 x 1.4 cm and the left lobe measures 4.2 x 0.9 x 1.5 cm in size. The color Doppler images demonstrate normal vascularity. There is no evidence of cervical lymphadenopathy or parathyroid mass. IMPRESSION: 2.3 cm TR 4 nodule right thyroid lobe. FNA recommended. Dictated by Magdaleno Shelton MD @ 10/31/2024 5:02:35 PM (Electronically Signed)
== END 2024-10-31 14:31 | disposition home or self-care (01) ==
LOC: US 14:30
PROVIDERS: PCP Family Medicine; Visit Provider Obstetrics & Gynecology
DX: E07.9 Disorder of thyroid, unspecified (principal)
CPT/HCPCS: 76536

== ENCOUNTER 2024-11-05 09:04 | Outpatient (CLI) | payer OTHER, SELFPAY | END 2024-11-05 09:05 | disposition home or self-care (01) | LOC: NFLDREF 11-06 11:30 | PROVIDERS: PCP Family Medicine; Referring Provider Family Medicine; Visit Provider Family Medicine | DX: E04.1 Nontoxic single thyroid nodule (principal) | CPT/HCPCS: 84443 ==

== ENCOUNTER 2024-11-10 09:02 | Outpatient (CLI) | payer OTHER, SELFPAY ==
--- NOTE | 2024-11-10 09:15 | CRLHL7_ITS ---
For Patients: As a result of the Century Cures Act, medical imaging exams and procedure reports are released immediately into your electronic medical record. You may view this report before your referring provider. If you have questions, please contact your health care provider. INDICATION : Right TR 4 thyroid nodule. TECHNIQUE : Ultrasound-guided fine needle aspiration of thyroid nodule. COMPARISON : 10/31/2024 FINDINGS : PROCEDURE: After the informed consent and time-out, multiple fine needle aspirations were obtained from the thyroid nodule. Fine needle performed. 25 gauge needles were used. 6 passes. Lidocaine was used for local anesthesia. The preliminary cytology was adequate for interpretation. Real-time imaging was used for guidance and needle placement. Post imaging ultrasound demonstrates no immediate complication. IMPRESSION : Successful fine needle aspiration of right thyroid lobe nodule. Dictated by Magdaleno Shelton MD @ 11/10/2024 10:37:54 AM (Electronically Signed)
== END 2024-11-10 09:03 | disposition home or self-care (01) ==
LOC: US 09:03
PROVIDERS: PCP Family Medicine; Visit Provider Obstetrics & Gynecology
DX: E04.1 Nontoxic single thyroid nodule (principal)
CPT/HCPCS: 10005; 76942; 88173

== ENCOUNTER 2025-01-02 11:25 | Outpatient (CLI) | payer OTHER, SELFPAY | END 2025-01-02 11:26 | disposition home or self-care (01) | LOC: NFLDREF 01-15 01:36 | PROVIDERS: PCP Family Medicine; Referring Provider Family Medicine; Visit Provider Surgery | DX: E89.0 Postprocedural hypothyroidism (principal) | CPT/HCPCS: 84443 ==

== ENCOUNTER 2025-01-30 13:47 | Outpatient (CLI) | payer OTHER, SELFPAY ==
--- NOTE | 2025-01-30 14:00 | CRLHL7_ITS ---
For Patients: As a result of the Century Cures Act, medical imaging exams and procedure reports are released immediately into your electronic medical record. You may view this report before your referring provider. If you have questions, please contact your health care provider. CLINICAL HISTORY: unspecified ovarian cyst- pelvic pain COMPARISON: 10/27/2024 TECHNIQUE: 2D etienne-scale ultrasound. In addition, color Doppler and spectral Doppler analysis was performed of the pelvis using a transabdominal and transvaginal approach. Transvaginal imaging performed to better visualize the endometrial stripe and right ovary. FINDINGS: Uterus measures 7.0 x 3.2 x 4.0 cm. Endometrium measures 3.1 millimeters. The right ovary measures 3.9 x 2.3 x 2.7 cm in size and the left ovary is absent. The right ovary demonstrates normal arterial and venous blood flow on color Doppler and spectral Doppler analysis. There are no suspicious fluid collections within the cul-de-sac. Trace physiologic free fluid noted. IMPRESSION: Normal right ovary. No torsion. Dictated by Magdaleno Shelton MD @ 02/02/2025 5:59:36 AM (Electronically Signed)
== END 2025-01-30 13:48 | disposition home or self-care (01) ==
LOC: US 13:47
PROVIDERS: PCP Family Medicine; Visit Provider Obstetrics & Gynecology
DX: N83.209 Unspecified ovarian cyst, unspecified side (principal); R10.20 Pelvic and perineal pain unspecified side
CPT/HCPCS: 76830; 76856; 93976

== ENCOUNTER 2025-02-09 16:29 | Emergency (ER) | payer OTHER, SELFPAY ==
--- OUTSIDE RECORDS SUMMARY | 2025-02-09 16:32 | XMS_ITS | Patient Health Record ---
Author Organization [facility] Address [facility] [address] Care Team Providers Care Manager Of Construction Name Role Phone Gail Richmond MD Primary [...] capful Once a day Active Multivitamin Active Social History Social History PSA Social History Social Info Question Answer Notes Education: Is the Child in School? Yes What Grade? 7th Additional Details Category Social Info Options Details PSA Social History Child Lives At: Home Child Lives With: Mother and Fat her Siblings Yes: 2 Activities / Interests? hockey, dancing, art and music Problems Problem Type SNOMED Code ICD Code Onset Dates Problem Status W/U Status Risk Notes Problem Dysfunctional voiding (194158436) Dysfunctional Voiding (596.59) Active confirmed Problem Constipation (84957454) Constipation (K59.00) Active confirmed Problem Dysfunctional voiding of urine (331558828) Dysfunctional voiding of urine (N39.8) Active confirmed Problem Urinary incontinence (203585041) Urinary incontinence (R32) Active confirmed Problem Urinary tract infectious disease (24597975) UTI (urinary tract infection) (599.0) Active confirmed Problem Incontinence of urine (473862350) Incontinence of urine (788.30) Active confirmed Problem Constipation (21835360) Constipation (564.00) Active confirmed Plan Of Treatment No Information Insurance Providers Payer Name Payer Address Payer Phone Subscriber Number Group Number Insured Name Patient Relationship to Insured Coverage Start Date Coverage End Date [employer] [address] [address] [place] [address] [id number] Owen Whitehead Child - Insured has Financial Responsibility 4 [employer] [address] [place] [address] [id number] Meghann Whitehead Child - Insured has Financial Responsibility 4 Medical (General) History Medical History History ICD Code Genitourinary: Urinary incontinence, Noc turnal enuresis, UTI Gastrointestinal: Constipation Surgical History Surgery Date(Month/Year) tonsils and adnoids removed 05/2012 plates and screw placement 09/2014 plates and screws removed 05/2015
--- OUTSIDE RECORDS SUMMARY | 2025-02-09 16:33 | XMS_ITS | Clinical Summary ---
Author Organization [facility] Address [address] [place] [address] Care Team Providers Care Supervisor Slashing Department Name Role Phone Pcp, No Primary Care Provider Fazal Mcneal MD Unavailable [phone] Allergies No known active allergies Medications traZODone (DESYREL) 50 mg tablet Take 50 mg by mouth at bedtime. 4 Active hydrOXYzine HCL (ATARAX) 50 mg tablet Take by mouth. 5 Active dextroamphetami ne-amphetamine (ADDERALL) 5 mg tablet Take 5 mg by mouth. 5 Active Emzahh 0.35 mg tablet Take 1 Tablet by mouth once daily. 5 Active OLANzapine (ZYPREXA) 2.5 mg tablet Take 2.5 mg by mouth at bedtime. Active polyethylene glycoL (MIRALAX) 17 gram/dose powder Take 17 g by mouth. 0 3 02/07/20 25 Discontinu ed(*Med complete/R egimen complete/L evel of care change) drospirenone-et hinyl estradioL (SOLO) 3-0.02 mg tablet 3 02/07/20 25 Discontinu ed(*Med complete/R egimen complete/L evel of care change) cyanocobalamin (Vitamin B-12) 1,000 mcg tabletIndicatio ns:Vitamin B12 deficiency Take 1 Tablet (1,000 mcg) by mouth once daily. 90 Tablet 3 3 02/07/20 25 Discontinu ed(*Med complete/R egimen complete/L evel of care change) ferrous sulfate, 65 mg elemental, tabletIndicatio ns:Low ferritin Take 1 Tablet (325 mg) by mouth once daily with a meal. 90 Tablet 3 3 02/07/20 25 Discontinu ed(*Med complete/R egimen complete/L evel of care change) ARIPiprazole (ABILIFY) 2 mg tablet 4 02/07/20 25 Discontinu ed(*Med complete/R egimen complete/L evel of care change) methylphenidate , 30-70 multiphase, (METADATE CD) 10 mg capsule 10 mg. 4 02/07/20 25 Discontinu ed(*Med complete/R egimen complete/L evel of care change) OLANzapine (ZYPREXA) 5 mg tablet Take 5 mg by mouth once daily. 4 02/07/20 25 Discontinu ed(*Medica tion adjustment ) Slynd 4 mg (28) tab 5 02/07/20 25 Discontinu ed(*Med complete/R egimen complete/L evel of care change) Active Problems Problem Noted Date Diagnosed Date Anxiety 02/06/2025 Overview (02/06/2025): - likely contributing to symptoms. Will continue olanzapine, but hold trazodone and hydroxyzine so they don't obscure neuro exam. Depression 02/06/2025 Endometriosis 02/06/2025 Menorrhagia 02/06/2025 Overview (02/06/2025): well managed with control pill Migraine with aura 02/06/2025 S/P laparoscopy 02/06/2025 Overview (02/06/2025): with peritoneal biopsies confirming endometriosis 01/03/24 Thyroid lesion 02/06/2025 Overview (02/06/2025): - 10/19/24 CTA neck: 1.5cm heterogeneous right thyroid lesion. Further evaluation with ultrasound is recommended - patient and mother aware ADHD 02/06/2025 Overview (02/06/2025): - held Adderall during stay Mixed hyperlipidemia 02/06/2025 Dyslexia 09/28/2022 History of anorexia nervosa 09/28/2022 Unspecified adjustment reaction 06/27/2010 Overview (06/27/2010): School adjustment and attention concerns Regular astigmatism 01/10/2006 Hypermetropia 01/10/2006 Amblyopia, unspecified 01/10/2006 Overview (01/10/2006): Refractive-R Resolved Problems Problem Noted Date Diagnosed Date Resolved Date Torsion of fallopian tube 02/06/2025 Recurrent UTI 11/05/2013 02/06/2025 Overview (06/18/2015): F/B urology clinic/voiding program. 10/2013 [...] KUB and normal renal u/s Unspecified hyperkinetic syn drome of childhood 07/04/2010 02/06/2025 Overview (07/04/2010): Continue to evaluate for full spectrum GAIT DISTURBANCE 01/04/2005 05/24/2012 RASH 10/05/2004 05/24/2012 FX CLOSED HUMERUS, SUPRACONDYLAR 06/02/2004 02/06/2025 ARM SPRAIN 05/11/2004 05/24/2012 UPPER RESPIRATORY INFECTION - ACUTE 07/20/2003 08/03/2003 Encounters Date Type Department Care Team Description 02/09/2025 Results Follow-Up [facility] [address] [place] [address] Gio Kevin MD Results 02/08/2025 5:15 PM [employer]INDOW GLAZIER HELPER Ancillary Procedure [facility] [address] [place] [phone] Arrived 02/08/2025 4:35 PM WINDOW GLAZIER HELPER Office Visit [facility] [address] [place] [address] Kellee Thakur MD Throat Problem 02/08/2025 Travel 02/06/2025 2:10 PM WINDOW GLAZIER HELPER Office Visit [facility] [address] [place] [address] Gio Kevin MD Preoperative Exam (Thyroidectomy 02/[address] [facility] [address] Nunez) 02/06/2025 Travel 01/12/2025 Orders Only [facility] [address] [place] [address] Valeria Mcpherson 1 scan: (1-Ord) ZIO 01/02/2025 8:15 AM CDT Ancillary Procedure [facility] [address] [place] [address] 01/02/2025 Travel 12/19/2024 2:40 PM CDT Office Visit [facility] [id number] [place] [address] Fazal Miramontes MD Consult (Nontoxic single thyroid nodule) 12/19/2024 Travel 12/10/2024 Orders Only [facility] [address] [place] [address] Luzmaria Barnett MD <No scans attached> 11/27/2024 Lab Requisition [facility] [phone] Luzmaria Barnett MD 11/10/2024 Orders Only [facility] Scanner 1 scan: (1-Ord) [place] BX (FNA) THYROID, 11/10/2024 11/10/2024 Lab Requisition [facility] [phone] Leida Cazares MD from Last 3 Months Immunizations Immunization Administration Dates Next Due AMB Influenza, (Flumist) Lynette e Intranasal,LAIV4 (Flu Clinic Only) 12/18/2014,12/27/2011,12/30/2010,01/21 AMB Influenza, IIV4 PF (=>6 mos Flulaval,Fluzone Fluarix)(Flu Clinic Only) 12/13/2019 DTaP 10/11/2006,12/11/2003 [id number] (Pediarix) 01/19/2003,2002,0 2002 Dtap-5 Pertussis Antigens 12/11/2003,2002 [...] Pneumococcal conj 7-Valent (Prevnar 7) 3,2002,2002 Tdap 02/06/2025,10/26/2014 Varicella Vaccine 10/11/2006,09/01/2003 Family History Medical History [...] or isolated from those around you? 0 02/06/2025 Alcohol Use Answer Date Recorded How often do you have a drink containing alcohol ? 2 12/19/2024 Average Number of Drinks Not on file 025 Frequency of Binge Drinking Not on file 12/03 Financial Resource Strain Answer Date R ecorded Difficulty of Paying Living Expenses 3 02/06/2025 Difficulty of Paying Living Expenses Not on file 02/06/2025 Food Insecurity Answer Date Recorded Do you worry your food will run out before you are able to buy more? 1 02/06/2025 Transportation Needs Answer Date Record ed Does lack of transportation keep you from medica l appointments? 1 02/06/2025 Does lack of transportation keep you from work, meetings or getting things that you need? 1 02/06/2025 Housing Stability Answer Date Recorded What is your housing situation today? 1 02/06/2025 Utilities Answer Date Recorded Do you have trouble paying f or utilities (for example, heat, electricity, water, phone)? 1 02/06/2025 Comments No Sex and Gender Information Value Date Recorded Sex Assigned at Not on file Legal Sex Female 5:18 AM WINDOW GLAZIER HELPER Gender Identity Not on file Sexual Orientation Not on file Last Filed Vital Signs Vital Sign Reading Time Taken Comments Blood Pressure 122/66 02/08/2025 4:43 PM WINDOW GLAZIER HELPER Pulse 103 02/08/2025 4:43 PM WINDOW GLAZIER HELPER Temperature 36.2 C (97.1 F) 02/08/2025 4:43 PM WINDOW GLAZIER HELPER Respiratory Rate 16 02/08/2025 4:43 PM WINDOW GLAZIER HELPER Oxygen Saturation 99% 02/08/2025 4:43 PM WINDOW GLAZIER HELPER Inhaled Oxygen Concentration - - Weight 68.9 kg (152 lb) 02/08/2025 4:43 PM WINDOW GLAZIER HELPER Height 167.6 cm (5' 6) 02/06/2025 2:26 PM WINDOW GLAZIER HELPER Body Mass Index 24.53 02/06/2025 2:26 PM WINDOW GLAZIER HELPER Plan of Treatment Upcoming Encounters Date Type Department Care Team (Late st Contact Info) Description 04/24/2025 3:05 PM WINDOW GLAZIER HELPER Office Visit [facility] [address] [address] [place] [address] [place] [address] Health Maintenance Due Date Last Done Comments COVID-19 vaccine series (#1) 2002 HPV series for age 9-45 (3 - Risk 3-dose series) 04/18/2013 12/16/2012, 12/16/2012, 12/16/2012, Additional history exists HIV for age 15-65 2017 Hepatitis C screening for ag e 18-79 2020 Pneumococcal series for age 6-49 (1 of 2 - PCV) 2021 01/19/2003, 2002, 2002 Pap test for age 21-65 06/24/2023 Depression screening for age 12+ 10/03/2023 10/02/2022, 09/28/2022, 05/28/2015 Influenza Vaccine (#1) 2024 , 12/27/2018, 01/08/2018, Additional history exists BMI (ht and wt on same day) for age 18+ 02/06/2026 02/06/2025, 09/28/2022 Tetanus booster 02/06/2035 02/06/2025, 10/26/2014 Hepatitis B series for 19+ Completed 01/19, 2002, 2002, Additional history exists Procedures Procedure Name Priority Date/Time Associated Diagnosis Comments XR CHEST 2 VIEWS PA AND LATERAL STAT 02/08/2025 5:16 PM WINDOW GLAZIER HELPER Dysphagia, unspecified type CBC WITH AUTO DIFFERENTIAL Routine 02/06/2025 3:07 PM WINDOW GLAZIER HELPER Preop examination BASIC METABOLIC PANEL Routine 02/06/2025 3:07 PM WINDOW GLAZIER HELPER Preop examination CBC WITH AUTO DIFFERENTIAL Routine 02/06/2025 3:07 PM WINDOW GLAZIER HELPER Preop examination US NECK OR HEAD SOFT TISSUE Routine 01/02/2025 8:33 AM CDT Papillary thyroid carcinoma (HC) PATH TISSUE EXAM Routine 11/27/2024 11:3 0 AM CDT LAB TRACKING EVENT Routine 11/27/2024 7: 30 AM CDT PATH FNA CYTOLOGY ASP CYTOLOGY Routine 11/10/2024 2:45 PM CDT LAB TRACKING EVENT Routine 11/10/2024 9: 35 AM CDT SCAN-OPERATIVE/PROCED URE REPORT 11/10/2024 12:00 AM CDT from Last 3 Months Results * XR CHEST 2 VIEWS PA AND LATERAL (02/08/2025 5:16 PM WINDOW GLAZIER HELPER) Anatomical Region Laterality Modality CHEST, THORAX, Lung, HEART Compu timi Radiography 02/08/2025 5:16 PM WINDOW GLAZIER HELPER Impressions 02/08/2025 5:34 PM WINDOW GLAZIER HELPER Cardiac silhouette and mediastinal contours are normal. Lungs are clear. No focal consolidation, pleural effusion, or pneumothorax. Narrative 02/08/2025 5:34 PM WINDOW GLAZIER HELPER For Patients: As a result of the Cures Act, medical imaging exams and procedure reports are released immediately into your electronic medical record. You may view this report before your referring provider. If you have questions, please contact your health care provider. EXAM: XR CHEST 2 VIEWS PA AND LATERAL LOCATION: [facility] DATE: 02/08/2025 INDICATION: Dysphagia, Unspecified Type COMPARISON: None. Procedure Note Edgar Gold MD - 02/08/2025 For Patients: As a result of the Cures Act, medical imagingexams and procedure reports are released immediately into your electronicmedical record. You may view this report before your referring provider.If you have questions, please contact your health care provider. EXAM: XR CHEST 2 VIEWS PA AND LATERAL LOCATION: [facility] DATE: 02/08/2025 INDICATION: Dysphagia, Unspecified Type COMPARISON: None. IMPRESSION: Cardiac silhouette and mediastinal contours are normal. Lungs are clear.No focal consolidation, pleural effusion, or pneumothorax. us Kellee Thakur MD GENERAL IMAGING Final Result * CBC WITH AUTO DIFFERENTIAL (02/06/2025 3:07 PM WINDOW GLAZIER HELPER) WHITE BLOOD CELL COUNT 6.9 3.8 - 10.8 Thousand/u L 02/07/2025 3:33 AM WINDOW GLAZIER HELPER [facility] RED BLOOD CELL COUNT 4.73 3.80 - 5.10 Million/uL 02/07/2025 3:33 AM WINDOW GLAZIER HELPER [facility] HEMOGLOBIN 14.3 11.7 - 15.5 g/dL 02/07/2025 3:33 AM WINDOW GLAZIER HELPER [facility] HEMATOCRIT 43.8 35.9 - 46.0 % 02/07/2025 3:33 AM WINDOW GLAZIER HELPER [facility] MCV 92.6 81.4 - 101.7 fL 02/07/2025 3:33 AM WINDOW GLAZIER HELPER [facility] MCH 30.2 27.0 - 33.0 pg 02/07/2025 3:33 AM WINDOW GLAZIER HELPER [facility] MCHC 32.6 31.6 - 35.4 g/dL 02/07/2025 3:33 AM WINDOW GLAZIER HELPER [facility] Comment: For adults, a slight decrease in the calculated MCHC value (in the range of 30 to 32 g/dL) is most likely not clinically significant; however, it should be interpreted with caution in correlation with other red cell parameters and the patient's clinical condition. RDW 11.8 11.0 - 15.0 % 02/07/2025 3:33 AM WINDOW GLAZIER HELPER [facility] PLATELET COUNT 314 140 - 400 Thousand/u L 02/07/2025 3:33 AM WINDOW GLAZIER HELPER [facility] MPV 10.9 7.5 - 12.5 fL 02/07/2025 3:33 AM WINDOW GLAZIER HELPER [facility] NEUTROPHILS 58.2 % 02/07/2025 3:33 AM WINDOW GLAZIER HELPER [facility] LYMPHOCYTES 31.6 % 02/07/2025 3:33 AM WINDOW GLAZIER HELPER [facility] MONOCYTES 7.0 % 02/07/2025 3:33 AM WINDOW GLAZIER HELPER [facility] EOSINOPHILS 2.5 % 02/07/2025 3:33 AM WINDOW GLAZIER HELPER [facility] BASOPHILS 0.7 % 02/07/2025 3:33 AM WINDOW GLAZIER HELPER [facility] ABSOLUTE NEUTROPHILS 4016 1500 - 7800 cells/uL 02/07/2025 3:33 AM WINDOW GLAZIER HELPER [facility] ABSOLUTE LYMPHOCYTES 2180 850 - 3900 cells/uL 02/07/2025 3:33 AM WINDOW GLAZIER HELPER [facility] ABSOLUTE MONOCYTES 483 200 - 950 cells/uL 02/07/2025 3:33 AM WINDOW GLAZIER HELPER [facility] ABSOLUTE EOSINOPHILS 173 15 - 500 cells/uL 02/07/2025 3:33 AM WINDOW GLAZIER HELPER [facility] ABSOLUTE BASOPHILS 48 0 - 200 cells/uL 02/07/2025 3:33 AM WINDOW GLAZIER HELPER [facility] Blood BLOOD SPECIMEN / Unknown [facility] / Unknown 02/06/2025 3:07 PM WINDOW GLAZIER HELPER 02/06/2025 3:07 PM WINDOW GLAZIER HELPER us Gio Kevin MD HEMATOLOGY Final Resul t Performing Organization Address [facility]/ZIP Co de Phone Number [facility] [address] [address], [place] [phone] * BASIC METABOLIC PANEL (02/06/2025 3:07 PM WINDOW GLAZIER HELPER) SODIUM 139 135 - 146 mmol/L 02/07/2025 5:08 AM WINDOW GLAZIER HELPER [facility] POTASSIUM 4.3 3.5 - 5.3 mmol/L 02/07/2025 5:08 AM WINDOW GLAZIER HELPER [facility] CARBON DIOXIDE 27 20 - 32 mmol/L 02/07/2025 5:08 AM WINDOW GLAZIER HELPER [facility] GLUCOSE 89 65 - 99 mg/dL 02/07/2025 5:08 AM WINDOW GLAZIER HELPER [facility] Comment: Fasting reference interval CALCIUM 10.1 8.6 - 10.2 mg/dL 02/07/2025 5:08 AM WINDOW GLAZIER HELPER [facility] CREATININE 0.79 0.50 - 0.96 mg/dL 02/07/2025 5:08 AM WINDOW GLAZIER HELPER [facility] BUN/CREATININE RATIO SEE NOTE: 6 - 22 (calc) 02/07/2025 5:08 AM WINDOW GLAZIER HELPER [facility] Comment: Not Reported: BUN and Creatinine are within reference range. EGFR 108 > OR = 60 mL/min/1. 73m2 02/07/2025 5:08 AM WINDOW GLAZIER HELPER [facility] UREA NITROGEN (BUN) 15 7 - 25 mg/dL 02/07/2025 5:08 AM WINDOW GLAZIER HELPER [facility] ELECTROLYTE BALANCE 8 7 - 17 mmol/L (calc) 02/07/2025 5:08 AM WINDOW GLAZIER HELPER [facility] CHLORIDE 104 98 - 110 mmol/L 02/07/2025 5:08 AM WINDOW GLAZIER HELPER [facility] Blood BLOOD SPECIMEN / Unknown [facility] / Unknown 02/06/2025 3:07 PM WINDOW GLAZIER HELPER 02/06/2025 3:07 PM WINDOW GLAZIER HELPER us Gio Kevin MD CHEMISTRY Final Resul t Performing Organization Address City/[facility]/ZIP Co de Phone Number [facility] [address] [address], * US NECK OR HEAD SOFT TISSUE (01/02/2025 8:33 AM CDT) Anatomical Region Laterality Modality NECK Ultrasound 01/02/2025 3:03 PM CDT Narrative 01/02/2025 3:03 PM CDT For Patients: As a result of the Cures Act, medical imaging exams and procedure reports are released immediately into your electronic medical record. You may view this report before your referring provider. If you have questions, please contact your health care provider. Indication: Papillary thyroid carcinoma Technique: Grayscale and color Doppler ultrasound of the neck soft tissues performed bilaterally. Comparison: None Findings: Normal cervical lymph nodes are present bilaterally with normal central fatty fernando and normal internal color flow. No cortical thickening. In the right mid neck there is a normal lymph node which measures 2.6 x 0.5 x 1.2 cm with the cortex measuring 2 millimeters. Impression: No cervical adenopathy. Dictated by Magdaleno Shelton MD @ 01/02/2025 3:03:01 PM (Electronically Signed) Procedure Note Magdaleno Shelton MD - 01/02/2025 For Patients: As a result of the Cures Act, medical imagingexams and procedure reports are released immediately into your electronicmedical record. You may view this report before your referring provider.If you have questions, please contact your health care provider. Indication: Papillary thyroid carcinoma Technique: Grayscale and color Doppler ultrasound of the neck soft tissues performedbilaterally. Comparison: None Findings: Normal cervical lymph nodes are present bilaterally with normal centralfatty fernando and normal internal color flow. No cortical thickening. In theright mid neck there is a normal lymph node which measures 2.6 x 0.5 x 1.2cm with the cortex measuring 2 millimeters. Impression: No cervical adenopathy. Dictated by Magdaleno Shelton MD @ 01/02/2025 3:03:01 PM (Electronically Signed) Luzmaria Barnett MD Final Re sult * PATH TISSUE EXAM (11/27/2024 11:30 AM CDT) Case Report Pathology Report Case: [id number] Authorizing Provider: Luzmaria Barnett MD Collected: 11/27/2024 1130 Ordering Location: [facility] Received: 11/28/2024 1449 Pathologist: Winnie Rowe MD Specimen: Right Thyroid Isthmus 12/03/2024 2:01 PM CDT [facility] Final Diagnosis A) THYROID, RIGHT, THYROIDECTOMY: 1. High grade papillary thyroid carcinoma, 20 MM in greatest dimension: a. Mitoses: 8 per 2 millimeters-squared b. Tumor necrosis: Not identified in these sections c. Lymphovascular invasion: Not identified in these sections d. Tumor encapsulation: Present (Complete) e. Extrathyroidal extension: Not identified f. Margins: Examined margins negative for carcinoma (less than 0.1 mm from the nearest anterior surface) 2. Changes suggestive of prior fine needle aspiration procedure identified 3. See staging parameters below 12/03/2024 2:01 PM CDT [facility] at 1401 CDT Comment A) Deeper sections were examined in the interpretation for this specimen. Block A8 of this case seen in consultation with Dr. Christian. 12/03/2024 2:01 PM CDT [facility] Clinical Information Right Thyroid Nodule-Suspicious 12/03/2024 2:01 PM CDT [facility] Gross Description A) Received in formalin labeled with the patient's name and right thyroid single stitch superior double stitch isthmus, is a 7 gram, 4.2 x 2.3 x 2 cm intact thyroid lobectomy specimen. The area of the isthmus is inked orange, the anterior surface is inked blue, and the posterior surface is inked black. The specimen is serially sectioned from superior to inferior into 11 slices revealing a 2 x 1.5 x 1.1 cm rubbery ferreira encapsulated mass with hemorrhage, located in the inferior pole of the thyroid (slices 7-11). It is less than 0.1 cm from the anterior surface, 0.2 cm from the posterior surface, and less than 0.1 cm from the isthmus margin. The remaining thyroid parenchyma is spongy red-brown and unremarkable. The specimen is entirely sequentially submitted from superior to inferior in 11 cassettes. Summary of sections: 1. Slice 1, superior pole, perpendicular 2. Slice 2 3. Slice 3 4. Slice 4 5. Slice 5 6. Slice 6 7. Slice 7 with nodule 8. Slice 8 with nodule and closest isthmus margin 9. Slice 9 with nodule 10. Slice 10 with nodule 11. Slice 11, inferior pole with nodule, perpendicular Time and Date in Formalin: Time not indicated on 11/27/2024 RAL 11/28/2024 12/03/2024 2:01 PM CDT [facility] Microscopic Description The final diagnosis is based on microscopic examination of appropriate sections of all specimens. A) Immunohistochemical stains were performed to assess the nature of the noduleH with the following results: HBME: Positive BRAF V600E: Positive 12/03/2024 2:01 PM T [facility] SYNOPTIC REPORTING THYROID GLAND THYROID GLAND - All Specimens 8th Edition - Protocol posted: 05/24/2022 SPECIMEN Procedure: Right lobectomy TUMOR Tumor Focality: Unifocal Tumor Characteristics: Tumor Site: Right lobe Tumor Size: Greatest Dimension (Centimeters): 2 cm Histologic Tumor Types and Subtypes: : High-grade papillary thyroid carcinoma: Encapsulated classic variant Tumor Proliferative Activity: Mitotic Rate: Greater than or equal to 5 mitoses per 2 mm2 : 8 mitoses per 2 mm2 Tumor Necrosis: Not identified Angioinvasion (vascular invasion): Not identified Lymphatic Invasion: Not identified Perineural Invasion: Not identified Extrathyroidal Extension: Not identified Margin Status: All margins negative for carcinoma Distance from Invasive Carcinoma to Closest Margin: 0.1 mm REGIONAL LYMPH NODES Regional Lymph Node Status: Not applicable (no regional lymph nodes submitted or found) pTNM CLASSIFICATION (AJCC 8th Edition) Reporting of pT, pN, and (when applicable) pM categories is based on information available to the pathologist at the time the report is issued. As per the AJCC (Chapter 1, 8th Ed.) it is the managing physician s responsibility to establish the final pathologic stage based upon all pertinent information, including but potentially not limited to this pathology report. pT Category: pT1b pN Category: pN not assigned (no nodes submitted or found) ADDITIONAL FINDINGS Additional Findings: None identified 12/03/2024 2:01 PM CDT [facility] Additional Information Interpreted at [facility] - [address] [facility] [address] [address] Immunohistochemistry controls were reviewed and approved as appropriate by the pathologist during this examination. 12/03/2024 2:01 PM CDT [facility] Other (Right Thyroid Isthmus) 11/27/2024 11:30 AM CDT 11/28/2024 2:49 PM CDT Luzmaria Barnett MD PATHOLOGY/CYTOLOGY Final Result Performing Organization Address [facility]/ZIP Co de Phone Number [facility] [address] [place] [address], [place] * LAB TRACKING EVENT (11/27/2024 7:30 AM CDT) Only the most recent of2 resultswithin the time period is included. Other (Other) Client Collect / Unknown 11/27/2024 7:30 AM CDT 11/27/2024 10:24 PM CDT Luzmaria Barnett MD LAB BILL ONLY Final Re sult Performing Organization Address [facility] Co de Phone Number [facility] [address] [place] [address], [place] * PATH FNA CYTOLOGY ASP CYTOLOGY (11/10/2024 2:45 PM CDT) Case Report Medical Cytology Report Case: [id number] Authorizing Provider: Leida Cazares MD Collected: 11/10/2024 1445 Ordering Location: [facility] Received: 11/10/2024 1446 Pathologist: Guille Manning Jr., MD Specimen: Right Thyroid 11/11/2024 6:27 PM CDT [facility] Amendment Case amended to correct a mnemonic error in the comment; the diagnosis is unchanged. 11/11/2024 6:27 PM CDT [facility] Final Diagnosis THYROID, RIGHT LOBE, FINE NEEDLE ASPIRATION: 1. Suspicious for follicular thyroid neoplasm (SFN) 2. [place] category 4 3. See comment 11/11/2024 6:27 PM CDT [facility] Amendment electronically signed by Guille Manning Jr., MD on 11/11/2024 at 1827 CDT at 1346 CDT Comment According to the [place] System for reporting thyroid cytology, the category of suspicious for follicular neoplasm is associated with a risk of malignancy of 12-32%. Differential diagnostic considerations include cellular hyperplastic (adenomatoid) nodule, follicular adenoma, follicular carcinoma, follicular variant of papillary carcinoma, and possibly others. While excisional biopsy is the next recommended diagnostic step, a genomic specimen has been received and will be retained in cytology for two months from the date of collection. Such testing is not automatically reflexed. If genomic testing is desired to guide further care, it should be ordered by the treating clinician or proceduralist. Please FAX requests for genomic testing to the [facility] at [phone]. Call [facility] at [phone] with any questions regarding this process. 11/11/2024 6:27 PM CDT [facility] Clinical Information Ms. Whitehead is a 24 y.o. female with a right thyroid nodule 11/11/2024 6:27 PM CDT [facility] Gross Description A) Received identified as Right Thyroid is a fine needle aspirate specimen. The following were received: -6 Air dried slides -1 CytoLyt vial -1 FNA Protect vial The following were prepared from the specimen submitted: -6 Diff-Quik stained slides -1 Papanicolaou stained ThinPrep slide 11/11/2024 6:27 PM CDT [facility] Microscopic Description Specimen adequacy: Adequate for interpretation. All slides were reviewed. The microscopic appearance substantiates the diagnosis. 11/11/2024 6:27 PM CDT [facility] Additional Information Cytology is screened at [facility], Central Laboratory - [address], [place] [address] and [facility] - [address] [place] [address] and [facility] - [address] [place] [address] Interpreted at [facility], Central Laboratory - [address] [place], [place] [address], [place] [address] 11/11/2024 6:27 PM CDT [facility] Aspirate (Right Thyroid) 11/10/2024 2:45 PM CDT 11/10/2024 2:46 PM CDT us Leida Cazares MD PATHOLOGY/CYTOLOGY Edited Result - Final [facility] [address] [place] [address], [place] * SCAN-OPERATIVE/PROCEDURE REPORT (11/10/2024 12:00 AM CDT) us Scanner OTHER Final Result from Last 3 Months Insurance [facility] Advance Directives * Full Code (Latest Code Status on File) Date Activated Date Inactivated Comments 05/31/2012 8:18 AM 05/31/2012 1:38 PM * Full Code Date Activated Date Inactivated Comments 05/31/2012 6:21 AM 05/31/2012 8:18 AM Care Teams Supervisor Slashing Department Relationship Specialty Start Date End Date Pcp, No . PCP - General 09/14/22 [place] [address] [place] [address] Endocrinology Endocrinology 12/19/24
--- OUTSIDE RECORDS SUMMARY | 2025-02-09 16:33 | XMS_ITS | Clinical Summary ---
Author Organization [place] Address [facility] [place] [address] Care Team Providers Care Supercalender Operator Helper Name Role Phone Gail Richmond MD Primary Care Provider [phone] Allergies Active Allergy Reactions Criticality Noted Date [...] on file Legal Sex Female 4:33 AM [employer] Gender Identity Not on file Sexual Orientation [...] 2018 HEPATITIS C SCREENING 2020 PAP 06/24/2023 PHQ-2 (once per calendar year) 2024 DTAP/TDAP/TD VACCINE (7 - Td or Tdap) 10/26/2024 10/26/2014, 10/11/2006, 12/11/2003, Additional history exists COVID-19 VACCINE (2024- season) 2024 INFLUENZA VACCINE (#1) 2024 , 12/27/2018, 01/08/2018, [...] this topic Medical Devices Implanted Type Area Potato Peeling Machine Operator Device Identifier Shelf Expiration Date Model / Serial / Lot 2.4mm Titanium Volar Distal Radius Plate Right Implanted:Qty: 1 on 08/24/2014 by Sam Gordon MD at [facility] Right: Arm SYNTHES .[id number] 0 0505 14 AUG 2014 2.7mm Titanium Screw Cortex Implanted:Qty: 3 on 08/24/2014 by Sam Gordon MD at [facility] Right: Arm SYNTHES 402.872 / 0505 14 AUG 2014 2.4mm Self Tapping Locking Screw Implanted:Qty: 1 on 08/24/2014 by Sam Gordon MD at [facility] Right: Arm SYNTHES 412.816 0505 14 AUG 2014 1.8mm Buttress Pins 14mm Implanted:Qty: 1 on 08/24/2014 by Sam Gordon MD at [facility] Right: Arm SYNTHES .210.08 4 0505 14 AUG 2014 1.8mm Burttress Pins Implanted:Qty: 1 on 08/24/2014 by Sam Gordon MD at [facility] Right: Arm SYNTHES 210.08 8 0505 14 AUG 2014 Description:18mm 2.0 Cortex Screws 20mm Implanted:Qty: 1 on 08/24/2014 by Sam Gordon MD at [facility] Right: Arm SYNTHES 201.018 / / 05 105 28 APR 2014 Insurance [facility] CHOICE [facility] CHO[facility] Care Teams Supercalender Operator Helper Relationship Specialty Start Date End Date Gail Richmond MD PCP - General Pediatrics 08/24/14
--- OUTSIDE RECORDS SUMMARY | 2025-02-09 16:33 | XMS_ITS | Encounter Summary ---
Author Organization [place] Address [address] [place] [address]. [place] [address] Care Team Providers Care Terrazzo Worker Helper Name Role Phone Gail Richmond MD Primary Care Provider [phone] Encounter Details Date Type Department Care Team (Late st Contact Info) Description 08/12/2023 Ophth Exam [facility] - Eye Care Service Line [address] [place] [id number] Isac Goodman MD [address] [place] [id number] Social History Tobacco Use Types Packs/Day Years Used Date Smoking Tobacco: Never Assessed Adolescent Education Answer Date Record ed Getting School Help Needed Not on file 08/11 Comments No Sex and Gender Information Value Date Recorded Sex Assigned at Not on file 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
[2025-02-09 16:44] VITALS: BP 118/80; PULSE 105; RESP 18; TEMP 36.2; O2SAT 98; BMI 24.0
[2025-02-09 21:11] LABS: Hematocrit* 41.0 % (33.0-51.0); Hemoglobin* 14.1 gm/dL (12.0-16.0); Immature Granulocytes Abs Auto 0.00 K/uL (0.00-0.30); Immature Granulocytes Pct Auto 0.0 %; Lymphocytes Absolute Auto 2.35 K/uL (0.90-2.90); Mean Corpuscular HGB Conc 34 gm/dL (32-36); Mean Corpuscular Hemoglobin 31 pg (26-34); Mean Corpuscular Volume 89 fL (80-100); RDW Coefficient of Variation % 11.6 % (11.5-15.5); Red Blood Count* 4.62 m/uL (4.00-5.20); White Blood Count* 8.40 K/uL (4.50-11.00)
[2025-02-09 21:22] LABS: Slide Review Reflex No
[2025-02-09] MEDS: GI COCKTAIL (VISC LIDO/ANTACID) 30 ML PO (21:40)
[2025-02-09] MEDS: PANTOPRAZOLE SODIUM 40 MG INJ IVP (21:41)
--- NOTE | 2025-02-09 21:45 | ED.CHESTPAIN ---
HPI - Chest Pain General Date Seen: 02/09/25 Chief Complaint: Difficulty Swallowing Stated Complaint: Pain swallowing Time Seen by Provider: 02/09/25 20:21 Source: patient, family, RN notes reviewed and old records reviewed Mode of arrival: ambulatory Limitations: no limitations History of Present Illness HPI narrative: Patient is a 24-year-old female who presents here with chest pain with swelling it has been for the last 3 days, she went to Urgent Care yesterday told things worsen go to the ED should be in tear she has some pain with swelling water, feels in the center of her chest epigastric no fevers or vomiting, no food getting caught, she says it radiates a were when she swallows, she is having surgery in 9 days for thyroid cancer. She does have a history of anxiety, denies use of caffeinated drinks, does not use alcohol, is a nonsmoker. Denies any blood in her stools, darkening of her stools, she has not been vomiting. No exertional dyspnea, no leg swelling associated with this. She was not told use antacids. In fact urgent care told her that this can be reflux because she has pain with swallowing. Treatment prior to arrival: none Risk Factors Coronary artery disease risk factors: none Thoracic aortic dissection risk factors: none Related Data Home Medications ?Medication ?Instructions ?Recorded ?Confirmed olanzapine 2.5 mg tablet 2.5 mg PO HS 12/27/23 01/28/25 dextroamphetamine-amphetamine 5 mg 1 tab PO DAILY PRN 10/16/24 01/28/25 tablet hydroxyzine HCl 50 mg tablet 50 - 100 mg PO HS anxiety 10/16/24 01/28/25 trazodone 50 mg tablet 50 mg PO HS PRN 10/16/24 01/28/25 Previous Rx's ?Medication ?Instructions ?Recorded norethindrone (contraceptive) 0.35 0.35 mg PO QDAY #28 tabs 01/28/25 mg tablet omeprazole 40 mg capsule,delayed 40 mg PO DAILY #30 caps 02/09/25 release Allergies Allergy/AdvReac Type Severity Reaction Status Date / Time No Known Drug Allergies Allergy Verified 01/28/25 10:24 Review of Systems Status of ROS Reports: 10 or more systems reviewed and unremarkable except as noted in History and below [facility] Medical History Endometriosis ?N80.9 - Endometriosis, unspecified (ICD-10) Menorrhagia ?N92.0 - Excessive and frequent menstruation with regular cycle (ICD-10) Pelvic pain ?R10.2 - Pelvic and perineal pain (ICD-10) Depression ?F32.A - Depression, unspecified (ICD-10) Anxiety ?F41.9 - Anxiety disorder, unspecified (ICD-10) ADHD ?F90.9 - Attention-deficit hyperactivity disorder, unspecified type (ICD-10) Ovarian cyst ?N83.209 - Unspecified ovarian cyst, unspecified side (ICD-10) Torsion of fallopian tube ?N83.529 - Torsion of fallopian tube, unspecified side (ICD-10) Anemia due to acute blood loss ?D62 - Acute posthemorrhagic anemia (ICD-10) Fracture of right radius ?S52.91XA - Unspecified fracture of right forearm, initial encounter for closed fracture (ICD-10) Sprain of left wrist ?S63.502A - Unspecified sprain of left wrist, initial encounter (ICD-10) Surgical History S/P laparoscopy ?Z98.890 - Other specified postprocedural states (ICD-10) S/P ovarian cystectomy ?Z98.890 - Other specified postprocedural states (ICD-10) ?Z87.42 - Personal history of other diseases of the female genital tract (ICD-10) History of open reduction and internal fixation (ORIF) procedure ?Z98.890 - Other specified postprocedural states (ICD-10) Wrist fracture ?S62.109A - Fracture of unspecified carpal bone, unspecified wrist, initial encounter for closed fracture (ICD-10) Arm fracture ?S42.309A - Unspecified fracture of shaft of humerus, unspecified arm, initial encounter for closed fracture (ICD-10) S/P tonsillectomy and adenoidectomy ?Z90.89 - Acquired absence of other organs (ICD-10) Family History Other Diabetes Osteopenia Rheumatoid arthritis Social History Narrative: She lives in [place] 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 Non smoker, stopped vaping 2-3 years ago. Rare alcohol use No illicit drug use What is your current living situation?: I presently have a place to live Problems where you live: no known problems Problems where you live details: NA In the past 12 months, utilities in danger of being shut off: no In past 12 months, lack of transportation kept you from medical appts, meetings, work, or getting things needed for daily living: no In the past 12 mos, have been you worried that your food would run out before you had money to buy more?: never true In the past 12 mos, the food you bought just didn't last and you didn't have money to buy more?: never true Highest level of school completed/degree received: Associate degree: occupational, technical, vocational program Smoking Status: Never smoker Do you use any of these nicotine containing products: Vaping Products Smokeless tobacco user details: former vape user Second hand tobacco smoke exposure: No How often do you have a drink containing alcohol: monthly or less How often do you have six or more drinks on one occasion: Never AUDIT-C Alcohol total score: 1 Non-prescribed substance use: denies use Caffeine: Yes How often does anyone, including family, friends and others, physically hurt you: never How often does anyone, including family, friends and others, insult or talk down to you: never How often does anyone, including family, friends and others, threaten you with harm: never How often does anyone, including family, friends and others, scream or curse at you: never Are you using contraception or practicing any form of control: No service: No Exam Narrative Exam Narrative: On examination in room 6 she is in no apparent distress she is pleasant and alert, pupils equal round reactive to light there is no scleral icterus redness conjunctiva well perfused oropharynx is otherwise normal, with a little bit of redness posterior early, scant tonsillar tissues consistent with a tonsillectomy her TMs are normal bilaterally her neck is supple her chest is good air entry bilaterally she has a scar on the left side of her neck and her previous thyroid surgery, RI chest is good air entry bilaterally no wheezing crackles noted there is no splinting noted, heart sounds are normal, her abdomen is soft there is no guarding no organomegaly, bowel sounds are normal negative Valadez sign. Const Vital Signs, click to edit/add: Vital Signs - 24 hr 02/09/25 16:44 Temperature 97.2 F L Pulse Rate [Pulse Oximeter] 105 H Respiratory Rate 18 Blood Pressure [Right Upper Arm] 118/80 Pulse Oximetry 98 Oxygen Delivery Method Room Air Documenting provider has reviewed patient's vital signs: yes Course Course ED Course: Patient improved transiently with the GI cocktail, I discussed with her that I believe this is acid reflux causing her esophagitis. I think it would be reasonable as her hemoglobin is normal discharge her home, she is still swallowing fluids well. Follow-up with primary care consider EGD. Return here food gets stuck, for worsening signs and symptoms which we discussed. She may use antacids also. Vital Signs Vital signs: Initial Vital Signs Temperature 97.2 F L 02/09/25 16:44 Temperature Source Temporal Artery Scan 02/09/25 16:44 Pulse Rate 105 H 02/09/25 16:44 Respiratory Rate 18 02/09/25 16:44 Blood Pressure 118/80 02/09/25 16:44 Blood Pressure Mean 92 02/09/25 16:44 Blood Pressure Position Sitting 02/09/25 16:44 Pulse Oximetry 98 02/09/25 16:44 Oxygen Delivery Method Room Air 02/09/25 16:44 Vital Signs Temperature 97.2 F L 02/09/25 16:44 Pulse Rate 105 H 02/09/25 16:44 Respiratory Rate 18 02/09/25 16:44 Blood Pressure 118/80 02/09/25 16:44 Pulse Oximetry 98 02/09/25 16:44 Oxygen Delivery Method Room Air 02/09/25 16:44 Temperature 97.2 F L 02/09/25 16:44 Pulse Rate 105 H 02/09/25 16:44 Respiratory Rate 18 02/09/25 16:44 Blood Pressure 118/80 02/09/25 16:44 Pulse Oximetry 98 02/09/25 16:44 Oxygen Delivery Method Room Air 02/09/25 16:44 Medications Administered Medications: Discontinued Medications Generic Name Dose Route Start Last Admin Trade Name Freq PRN Reason Stop Dose Admin Sodium Chloride 1,000 mls @ 1,000 mls/hr 02/09/25 20:45 02/09/25 21:41 0.9 % Sodium Chloride 1000 Ml IV 02/09/25 21:44 1,000 mls/hr .Q1H ROBBIN Administration Lidocaine/Aluminum/Magnesium/Simeth 30 ml 02/09/25 20:34 02/09/25 21:40 Gi Cocktail (Visc Lido/Antacid) 30 Ml PO 02/09/25 20:35 30 ml ONCE ONE Administration Pantoprazole Sodium 40 mg 02/09/25 20:34 02/09/25 21:41 Pantoprazole Sodium 40 Mg Inj IVP 02/09/25 20:35 40 mg ONCE ONE Administration MDM - Chest Pain MDM Narrative Medical decision making narrative: During the evaluation of this patient I considered multiple differential diagnosis is. The life-threatening differential diagnosis include coronary disease/NM, pulmonary embolism, pneumothorax, pneumonia, and aortic dissection. Other differential diagnosis included but were not limited to pericarditis, myocarditis, chest wall pain, GERD, esophageal rupture, rib fracture contusion, pleurisy, as well as other etiologies. This is consistent with likely GE reflux and esophagitis. I think we will try a GI cocktail along with Protonix. Medical Records Data Attestation: I reviewed the patient's medical records. Lab Data Attestation: I reviewed the patient's lab results. Labs: Lab Results 02/09/25 Range/Units 21:05 WBC 8.40 (4.50-11.00) K/uL RBC 4.62 (4.00-5.20) m/uL Hgb 14.1 (12.0-16.0) gm/dL Hct 41.0 (33.0-51.0) % MCV 89 (80-100) fL MCH 31 (26-34) pg MCHC 34 (32-36) gm/dL RDW Coeff of Ti 11.6 (11.5-15.5) % Plt Count 303 (140-440) K/uL Neut % (Auto) 61.5 (42.0-72.0) % Lymph % (Auto) 28.0 (20-44) % Brewster % (Auto) 7.3 (0.0-11.0) % Eos % (Auto) 2.7 (0.0-7.0) % Baso % (Auto) 0.5 (0.0-3.0) % Neut # (Auto) 5.17 (1.7-7.0) K/uL Lymph # (Auto) 2.35 (0.90-2.90) K/uL Brewster # (Auto) 0.60 (0.00-0.90) K/UL Eos # (Auto) 0.23 (0.00-0.50) K/uL Baso # (Auto) 0.04 (0.00-0.30) K/uL Abs Immat Gran (auto) 0.00 (0.00-0.30) K/uL Imm/Tot Granulo (auto) 0.0 % Discharge Plan Discharge Clinical Impression: Difficulty swallowing, Acid reflux disease Patient Disposition: Home w/ Parent or Adult Condition: Stable Instructions: GERD (Gastroesophageal Reflux Disease) (DC), Full Liquid Diet (DC), Upper Endoscopy (DC) Additional Instructions: Home rest follow-up with primary care in the next couple days, consider an EGD, referral. I would suggestive food gets stuck that she need to come back, clear fluids for 3-4 days, omeprazole 40 mg p.o. by mouth daily for the next month. Increasing fevers chills, inability to swallow liquids at all. The need to come back and be seen. Activity Level: Light activity Discharge Diet: Full Liquid Prescriptions: New omeprazole 40 mg capsule,delayed release(DR/EC) 40 mg PO DAILY Qty: 30 2RF No Action norethindrone (contraceptive) 0.35 mg tablet 0.35 mg PO QDAY Qty: 28 3RF olanzapine 2.5 mg tablet 2.5 mg PO HS trazodone 50 mg tablet 50 mg PO HS PRN hydroxyzine HCl 50 mg tablet 50 - 100 mg PO HS dextroamphetamine-amphetamine 5 mg tablet 1 tab PO DAILY PRN Follow Up/Referrals: Danyel Peres MD [Primary Care Provider, Family Practice] Stand Alone Forms: [employer] Info Instructions
[2025-02-09 23:00] VITALS: BP 120/72; PULSE 88; RESP 16; O2SAT 100
== END 2025-02-09 23:34 | disposition home or self-care (01) ==
PROVIDERS: Emergency Provider Family Medicine; PCP Family Medicine
DX: R13.10 Dysphagia, unspecified (principal); K21.00 Gastro-esophageal reflux disease with esophagitis, without bleeding
CPT/HCPCS: 36415; 85025; 96361; 96374; 99284; A9270; J2470; J7030

== ENCOUNTER 2025-02-19 07:30 | Day surgery (SDC) | payer OTHER, SELFPAY ==
[2025-02-19] VITALS (23 sets, daily range): BP systolic 103–129; BP diastolic 62–82; PULSE 66–108; RESP 14–20; TEMP 36.6–37; O2SAT 94–100; BMI 24.5
[2025-02-19 07:54] LABS: Ur HCG Qualitative* Negative (Negative)
[2025-02-19] MEDS: SODIUM CHLORIDE 0.9 % (FLUSH) 10 ML SYRINGE IVF ×2 (08:19→19:43)
[2025-02-19] MEDS: LACTATED RINGERS 1000 ML 1,000 ML 100 ML IV ×2 (08:19→10:29)
--- NOTE | 2025-02-19 08:46 | W.PM.H&PU ---
History & Physical Update History & Physical Update H&P Reviewed and patient assessed: The following changes are noted below H&P Updates: Since our last visit, the patient underwent vocal cord check by ENT which showed normal vocal cord mobility. She also underwent ultrasound of her lymph node compartments of her neck which showed no evidence of metastatic disease.
--- NOTE | 2025-02-19 10:12 | SUR.OPER ---
left ear rings remain in ear during procedure due to patient stating that she cannot take them out. Patient and mother acknowledge risk of keeping them in during the procedure.
--- NOTE | 2025-02-19 10:45 | P.GSOP_ITS ---
Operative Note Date of procedure: 02/19/25 Pre-op diagnosis: 1. 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 Post-op diagnosis: Same Type of Procedure: 1. Completion thyroidectomy. Indications: 24-year-old female recently underwent right thyroid lobectomy for a suspicious right thyroid nodule. Pathology came back as high-grade papillary carcinoma. Completion thyroidectomy was recommended by my surgery partner. Please see their note for more detail. Patient presents today for completion thyro idectomy. Procedure Description: I assisted during this surgery and acted as a co-surgeon during integral parts of the procedure. Please see her note for more details. Briefly, after discussing the risks and benefits of the procedure, the patient signed informed consent.? The operative site was marked and the patient was brought to the operating room and placed on the operating table in supine position.? Care was taken to pad the patient's pressure points.?? The patient was then intubated by anesthesia with Nim tube.?? The operative site was then prepped and draped in the usual sterile fashion.? A time-out was then performed. A well-healing surgical incision in the inferior neck was reopened. Scar was noted in subcutaneous space. The scar was divided with cautery. A previously placed blue stitch and a clip were identified and were excised. This was marking the midline. During this part of the dissection I assisted with retraction and visualization. The strap muscles were then identified on the left side and retracted laterally. The avascular plane was identified between the strap muscles and the thyroid gland. This was divided with cautery. Vessels going to the superior pole of the thyroid were identified and divided sequentially with silk ties. The tied vascular pedicles were reinforced with vascular clips. During this part of the dissection I assisted Dr. Barnett with visualization and retraction in a tight space with difficult exposure. Middle thyroid vein was ligated with silk ties and clips as well. The gland was then retracted superiorly and medial. Inferior thyroid vasculature was dissected off and divided with silk ties. The left recurrent laryngeal nerve was not identified but care was taken to avoid its injury. The inferior thyroid pole vessels were then sequentially dissected circumferentially and divided with ties and clips. The tubercle of Zuckerkandl was seen at the superior aspect of the thyroid gland and was diving deep to the posterior tissues. We elected to leave small amount of thyroid tissue behind to avoid injury to the recurrent laryngeal nerve. Here, the thyroid was divided with cautery. The thyroid gland was then retracted medially. We carefully looked for the recurrent laryngeal nerve but it was still not in the field of dissection. Nim probe was used to attempt and identify the nerve but the nerve was not seen in the surgical field. During this part of the procedure I assisted with retraction and visualization of delicate tissue in a tight space. The thyroid gland was then taken off the trachea with cautery. When the thyroid lobe was free, it was marked with a single stitch at the superior pole and double stitch at the isthmus. Hemostasis was achieved with cautery. The Valsalva maneuver was done to check if there was bleeding, and no bleeding was seen from the surgical field. At this time Dr. Barnett proceeded with closure and I exited the operating room. Findings: Thyroid lobe was not enlarged, no palpable nodules were seen, no lymphadenopathy was noted. Anesthesia: GETA Surgeon: Luzmaria Barnett MD Co-Surgeon: Keith Urban MD Estimated blood loss (mL): 25 Additional Specimen Information: 1. Left thyroid lobe. Condition: stable Disposition: PACU
--- NOTE | 2025-02-19 11:00 | PM.GSPRC ---
Operative Note Date of procedure: 02/19/25 Pre-op diagnosis: Right-sided high-grade papillary thyroid cancer Post-op diagnosis: Same Type of Procedure: Left thyroid lobectomy (completion thyroidectomy) Indications: The patient is a 24-year-old female who underwent a diagnostic lobectomy for a suspicious 2.3 cm right thyroid nodule that was found incidentally on imaging for migraines. Pathology returned as a high-grade papillary thyroid carcinoma. I recommended completion thyroidectomy given the high-grade nature of the lesion. She underwent preoperative evaluation of her lymph nodes with a neck ultrasound. No evidence of nasreen disease was seen either on CT scan or neck ultrasound. She also underwent laryngoscopy to evaluate her vocal cords after her initial surgery. She had normal vocal cord mobility. She met with endocrinology. Radioactive iodine is planned. Procedure Description: After discussing the risks and benefits of the procedure, the patient signed informed consent.? The operative site was marked and the patient was brought to the operating room and placed on the operating table in supine position.? Care was taken to pad the patient's pressure points.?? The patient was then intubated using an endotracheal tube with a Nim monitor probe by anesthesia.??A small shoulder roll was placed and the patient's neck was extended. Her arms were tucked at her sides. The operative site was then prepped and draped in the usual sterile fashion.? A time-out was then performed. Incision was made in the patient's prior incision site. Dissection was taken down to the subcutaneous fat and platysma layer. This was noted to be scarred consistent with her prior surgery. Platysmal flaps were then created superiorly and inferiorly to the sternal notch and thyroid cartilage respectively. The midline was identified, marked by a Prolene stitch from the prior operation. The strap muscles were divided along the midline. The Prolene suture and clip were removed. The strap muscles were then divided from the left thyroid, carefully dissecting in the plane between the thyroid capsule and the muscles, dividing wispy fibers with cautery. The middle thyroid vein was encountered. Dr. Urban provided retraction of the thyroid during this portion of the procedure. I dissected out the middle thyroid vein and ligated this doubly with silk ties followed by clips. This was then divided. We took our dissection superiorly. Dr. Urban again reflected the thyroid inferiorly and medially. Using a right angle I carefully dissected out the superior thyroid vessel sequentially. These were also ligated using clips and ties superiorly. Care was taken during this dissection to stay right on the thyroid gland to avoid injury to the superior laryngeal nerve. On the specimen side, combination of ties and LigaSure were used. Once the superior pole was free, we continued to reflect the thyroid medially, dividing some additional wispy fibers between the strap muscles on the thyroid medially. We then took our dissection to the inferior pole. Dr. Urban continue to provide retraction of the thyroid medially while I dissected out the inferior pole vessels. These were again ligated with ties and clips prior to dividing. Care again was taken to stay right on the thyroid gland itself. Once this was free, Dr. Urban then reflected the thyroid medially. Examining the area posterior thyroid, we looked for the recurrent laryngeal nerve. It was not immediately visible in the fatty tissue posterior to the thyroid. I began by carefully dissecting posterior to the thyroid using a right angle. Small vessels were ligated with suture posteriorly prior to dividing, again with care to stay on the thyroid. We did not identify any obvious parathyroid gland on the thyroid itself during this mobilization. We reached the ligament of Slater and the tubercle of Zuckerkandl posteriorly in the thyroid. Knowing that this is the location of the recurrent laryngeal nerve, we took great care to leave a small rim of thyroid posteriorly here. This was divided with cautery and now, the thyroid being free posteriorly, was removed from the trachea using cautery. Once the thyroid was completely removed, this was then marked with a single stitch superiorly and a double stitch at the isthmus. This was then sent to pathology. We then examined the wound bed. There was a small amount of bleeding noted from the small rim of thyroid tissue that had been divided. This was controlled with the careful use of cautery. There was no additional bleeding noted. We examined the area. The recurrent laryngeal nerve was not immediately visible. There was a structure away from and deep to our plane of dissection that appeared possibly consistent with the recurrent laryngeal nerve, however we were unable to confirm this with the Nim probe as it had an impedance error that could not be resolved. At this time, a Valsalva maneuver was performed x2. There was no evidence of bleeding. Rosmery was placed in the wound bed. The strap muscles were then closed with a running 3-0 Vicryl suture. The platysmal layer was closed with a running 3-0 Vicryl suture. The dermis was closed with interrupted 3-0 Vicryl stitches and the skin closed with a 4-0 Monocryl running subcuticular stitch. Sterile dressings were then applied. ? The patient was then woken and transported to the recovery area in stable condition. ? The patient tolerated the procedure well. Findings: Thyroid normal in size. No palpable masses. No lymphadenopathy. Anesthesia: GETA Surgeon: Luzmaria Barnett MD Estimated blood loss (mL): 25 Specimen: Other Additional Specimen Information: Left thyroid lobe, single stitch superior, double isthmus Condition: stable Disposition: PACU
--- NOTE | 2025-02-19 11:08 | P.ANES_ITS ---
Anesthesia Charges Start Date/Time Anesthesia Start Date: 02/19/25 Anesthesia Start Time: 08:48 Stop Date/Time Anesthesia Stop Date: 02/19/25 Anesthesia Stop Time: 11:07 Coding CPT Codes CPT Codes: ANESTH NECK ORGAN 1YR/> - 27029 ([id number]) P2 - PATIENT W/MILD SYST DISEASE, QK - MUTUEL MACHINE OPERATOR 2-4 CNCRNT ANES PROC, QX - PROMOS EXECUTIVE PRODUCER SVC W/ MD MED DIRECTION
--- NOTE | 2025-02-19 11:08 | W.ANESCHARGE ---
Anesthesia Charges Start Date/Time Anesthesia Start Date: 02/19/25 Anesthesia Start Time: 08:48 Stop Date/Time Anesthesia Stop Date: 02/19/25 Anesthesia Stop Time: 11:07 Coding CPT Codes CPT Codes: ANESTH NECK ORGAN 1YR/> - 34017 ([id number]) P2 - PATIENT W/MILD SYST DISEASE, QK - GLORY HOLE TENDER 2-4 CNCRNT ANES PROC, QX - ONLINE MARKETING ANALYST SVC W/ MD MED DIRECTION
--- NOTE | 2025-02-19 11:19 | P.ANES_ITS ---
Anesthesia Charges Start Date/Time Anesthesia Start Date: 02/19/25 Anesthesia Start Time: 08:48 Stop Date/Time Anesthesia Stop Date: 02/19/25 Anesthesia Stop Time: 11:07 Coding CPT Codes CPT Codes: ANESTH NECK ORGAN 1YR/> - 94132 ([id number]) QK - TELEVISION TECHNICIAN 2-4 CNCRNT ANES PROC, QX - CREDIT REPORT CHECKER SVC W/ MD MED DIRECTION, P2 - PATIENT W/MILD SYST DISEASE
--- NOTE | 2025-02-19 11:19 | W.ANESCHARGE ---
Anesthesia Charges Start Date/Time Anesthesia Start Date: 02/19/25 Anesthesia Start Time: 08:48 Stop Date/Time Anesthesia Stop Date: 02/19/25 Anesthesia Stop Time: 11:07 Coding CPT Codes CPT Codes: ANESTH NECK ORGAN 1YR/> - 63315 ([id number]) QK - PROTOZOOLOGIST 2-4 CNCRNT ANES PROC, QX - SCIENTIFIC PROCESS OPERATOR SVC W/ MD MED DIRECTION, P2 - PATIENT W/MILD SYST DISEASE
[2025-02-19] MEDS: ONDANSETRON 2 MG/ML inj IVP (13:28)
[2025-02-19 14:50] LABS: Calcium* 8.8 mg/dL (8.4-10.6)
[2025-02-19] MEDS: CALCIUM CARBONATE 500 MG CHEW PO ×2 (15:14→17:41)
--- NOTE | 2025-02-19 16:02 | PC.NURSE ---
End of shift note: Pt arrived to the unit @ 1148. AxOx3, pleasant, and cooperative with cares. LSCTA on RA. Bowel sounds active. Advanced patient to regular diet, consuming soft food. Drinking adequately. Continent of the bladder. SBA transferring to the bathroom. Pain managed with active ice, reposition, PRN medication. Nausea managed with PRN medication, alcohol pads, and aromatherapy patch. Pt reported sleepy/tingling sensation to the feet, hands, and lips. Respiratory Supervisor reported to Alice LICEA. Continuing to monitor symptoms. Neck circumference upon admission to unit measured 14.5 inches above bandage. Pt denies SOB, difficulty swallowing, and swelling. Call light within reach. Family at bedside.
[2025-02-19] MEDS: PROCHLORPERAZINE 5 MG/ML VIAL IV (16:38)
[2025-02-19] MEDS: ACETAMINOPHEN 325 MG TABLET 650 MG PO (17:17)
--- NOTE | 2025-02-19 19:10 | PC.NURSE ---
End of Shift ([id number]): Patient pleasant and cooperative, A&O. VSS, afebrile. Dressing to neck C/D/I. Pt reported nausea, managed with PRN medication, see MAR. Pain managed with PRN medication, see MAR. Pt reports feeling itching of her face, MD notified. Tolerating soft regular diet. SBA in room.
[2025-02-19] MEDS: HYDROCODONE-ACETAMIN 5-325 MG 1 TAB PO (20:48)
[2025-02-19 23:07] LABS: PTH Intact* 21.6 pg/mL (14.2-75.2)
[2025-02-20 03:00] VITALS: BP 102/63; PULSE 78; RESP 16; TEMP 37.7; O2SAT 96
[2025-02-20 05:15] VITALS: TEMP 37.5
[2025-02-20 06:54] LABS: Chloride* 105 mmol/L (96-114); Potassium* 3.9 mmol/L (3.6-5.1); Sodium* 135 mmol/L (135-149)
[2025-02-20 06:57] LABS: Anion Gap 6 mEq/L (7-15); Blood Urea Nitrogen* 10 mg/dL (5-24); Carbon Dioxide* 24 mmol/L (20-32); Creatinine* 0.6 mg/dL (0.5-1.5); Est. Creatinine Clearance* 137.68; Estimated Glomerular Filt Rate 130 ml/min
[2025-02-20 06:58] LABS: Calcium* 9.0 mg/dL (8.4-10.6); Glucose* 120 mg/dL (60-115)
[2025-02-20 07:00] VITALS: BP 98/62; PULSE 86; RESP 16; TEMP 36.9; O2SAT 100
[2025-02-20] MEDS: LEVOTHYROXINE 125 MCG TABLET PO (07:02)
[2025-02-20] MEDS: HYDROCODONE-ACETAMIN 5-325 MG 1 TAB PO ×2 (07:02→07:49)
--- NOTE | 2025-02-20 07:24 | PC.NURSE ---
Independent in the room, Neck dressing is CDI. The patient reported mild tolerable pain throughout the night, until the morning, when she reported that it increased. PRN pain medication was given. The patient is looking at the breakfast menu now. Call light within reach. [place] ARAUJO BSN
[2025-02-20] MEDS: OMEPRAZOLE 20 MG CAPSULE DR 40 MG PO (08:44)
--- NOTE | 2025-02-20 09:21 | PM.DS1 ---
DS: Providers Provider Date Seen: 02/20/25 Primary care physician: Danyel Peres MD Attending Physician on discharge: Luzmaria Barnett MD DS: Diagnosis Discharge Diagnosis (1) Papillary thyroid carcinoma: Status: Acute (2) S/P total thyroidectomy: Status: Acute DS: Summary Hospital Course Hospital Course: Vivi was admitted after completion thyroidectomy for papillary thyroid cancer. She did well overnight and was deemed safe for discharge home. Her PTH post-op was 21, which is within normal range, but she was discharged home on supplemental calcium for 2 weeks as well as levothyroxine. Time Spent with Patient Time attestation: Total time spent providing and/or coordinating discharge services: Exam Narrative: Exam Narrative: General: NAD neck: soft, supple voice: no hoarseness detected Respiratory: breathing non-labored on room air CV: regular Const: Vital Signs, click to edit/add: Vital Signs - 24 hr 02/19/25 11:05 02/19/25 11:10 02/19/25 11:15 Temperature 97.9 F Pulse Rate 100 97 105 H Respiratory Rate 14 14 14 Blood Pressure 120/77 114/62 121/67 Pulse Oximetry 99 98 98 Oxygen Delivery Me thod Room Air Room Air Room Air 02/19/25 11:20 02/19/25 11:25 02/19/25 11:30 Temperature Pulse Rate 95 95 90 Respiratory Rate 14 14 14 Blood Pressure 111/63 111/66 109/71 Pulse Oximetry 96 98 96 Oxygen Delivery Me thod Room Air Room Air Room Air 02/19/25 11:35 02/19/25 11:48 02/19/25 12:00 Temperature 98.3 F 98.2 F 98.4 F Pulse Rate 95 98 100 Respiratory Rate 14 16 16 Blood Pressure 117/63 118/69 120/72 Pulse Oximetry 98 100 99 Oxygen Delivery Me thod Room Air Room Air Room Air 02/19/25 12:15 02/19/25 12:30 02/19/25 12:45 Temperature 98 F 98.1 F 98.4 F Pulse Rate 92 89 86 Respiratory Rate 16 16 16 Blood Pressure 116/64 110/69 111/66 Pulse Oximetry 97 96 97 Oxygen Delivery Me thod Room Air Room Air Room Air 02/19/25 13:15 02/19/25 13:45 02/19/25 14:45 Temperature 98.5 F 98.1 F 98 F Pulse Rate 85 99 94 Respiratory Rate 16 16 16 Blood Pressure 121/69 110/64 118/80 Pulse Oximetry 94 98 98 Oxygen Delivery Me thod Room Air Room Air Room Air 02/19/25 15:21 02/19/25 15:45 02/19/25 16:50 Temperature 98 F 98.4 F Pulse Rate 93 108 H Respiratory Rate 16 16 18 Blood Pressure 123/82 110/64 Pulse Oximetry 98 99 98 Oxygen Delivery Me thod Room Air Room Air Room Air 02/19/25 17:50 02/19/25 19:08 02/19/25 20:48 Temperature 98.4 F 98.4 F Pulse Rate 94 97 Respiratory Rate 18 16 Blood Pressure 129/72 108/65 Pulse Oximetry 99 99 Oxygen Delivery Me thod Room Air Room Air 02/19/25 23:00 02/19/25 23:00 02/20/25 03:00 Temperature 98.6 F 99.9 F H Pulse Rate 66 78 Respiratory Rate 16 16 Blood Pressure 103/66 102/63 Pulse Oximetry 95 96 96 Oxygen Delivery Me thod Room Air Room Air Room Air 02/20/25 05:15 02/20/25 07:00 02/20/25 07:00 Temperature 99.5 F 98.5 F Pulse Rate 86 Respiratory Rate 16 Blood Pressure 98/62 Pulse Oximetry 100 100 Oxygen Delivery Me thod Room Air Room Air DS: Data Data Completed and Pending Completed studies during hospitalization: Procedures Drainage of Pelvic Cavity, Percutaneous Endoscopic Approach (04/02/22) Excision of Left Ovary, Percutaneous Endoscopic Approach (04/02/22) Resection of Left Fallopian Tube, Percutaneous Endoscopic Approach (04/02/22) Resection of Left Ovary, Percutaneous Endoscopic Approach (04/02/22) Labs on day of discharge: Labs from last 24 hours 02/20/25 02/19/25 02/19/25 06:09 19:24 14:28 Sodium 135 Potassium 3.9 Chloride 105 Carbon Dioxide 24 Anion Gap 6 L BUN 10 Creatinine 0.6 Estimated Creat Clear 137.68 Estimated GFR 130 Glucose 120 H Calcium 9.0 8.8 PTH Intact 21.6 Discharge Plan Discharge Disposition: Home w/ Parent or Adult Discharging Surgeon: Luzmaria Barnett Follow-Up Appointment: 2 weeksSalomon Prescriptions: New hydrocodone-acetaminophen 5-325 mg Tablet 1 - 2 tab PO Q6H PRN (Reason: Pain) Qty: 15 0RF levothyroxine 125 mcg capsule 125 mcg PO DAILY Qty: 7 2RF Continued olanzapine 2.5 mg tablet 2.5 mg PO HS trazodone 50 mg tablet 50 mg PO HS PRN hydroxyzine HCl 50 mg tablet 50 - 100 mg PO HS PRN (Reason: anxiety) dextroamphetamine-amphetamine 5 mg tablet 1 tab PO DAILY PRN norethindrone (contraceptive) 0.35 mg tablet 0.35 mg PO DAILY omeprazole 40 mg capsule,delayed release(DR/EC) 40 mg PO DAILY Qty: 30 2RF Activity Level: Activity as Tolerated and No strenuous activity Activity Detail: No lifting more than 20 pounds for 2 weeks Discharge Diet: Regular Patient Instructions: Hypocalcemia (DC), Total Thyroidectomy (DC) Additional Instructions: Wound care: Your sutures are under the skin and will dissolve over time. Leave steri strips (white bandages) over incisions until they fall off (or remove after 7 days). Remove outer dressing on post-operative day 2 OK to shower tomorrow but avoid bathing, soaking or swimming for 2 weeks. Pat the incisions dry. No need to wash or scrub the area. Apply ice to the area as needed for swelling. It is also OK to use a heating pad if this provides more comfort to you. After thyroid surgery instructions: I have prescribed you a dose of levothyroxine for 1 week. This should tide you through until you are able to get a prescription from her manager regional sales, however there are 2 refills available to you if you need. I am also happy to refill this for a month if necessary. You should take 500 mg elemental calcium three times daily for 2 weeks. I recommend taking 2 TUMS EX three times daily. You will likely not experience low calcium levels but if you do, symptoms would be numbness and tingling in your hands feet or lips, or muscle cramps or spasms, you should take 3 extra-strength Tums (TUMS EX) every 30 minutes until symptoms subside. If you have taken 3 doses and you continue to have symptoms, you should present to the emergency department as you may need intravenous calcium. Pain control: You were prescribed a pain medication. This medication contains acetaminophen (Tylenol). If you are taking your prescribed pain pills 4 times daily, do not take additional acetaminophen. As your pain improves, you can try taking acetaminophen instead of the prescribed pain pill. It is ok to take Ibuprofen or Naproxen (per directions on packaging). This medication helps with inflammation and swelling. Take an [id number] stool softener while you are taking prescribed pain medications to help alleviate constipation. I recommend Senna and/or Colace. Take as directed on package. If you have not had a bowel movement in 3 days, try taking Miralax as directed on the package. All of these are available over the counter. Follow-up Follow up with Dr. Barnett in 2-3 weeks Please call if you are experiencing severe pain, nausea, vomiting, difficulty urinating, fever or have not had bowel movement in 4 days after surgery. Follow-up: Luzmaria Barnett MD [Staff Physician, General Surgery] Danyel Peres MD [Primary Care Provider, Family Practice] Discharge Orders: Discharge Order (Routine); Ordered 02/20/25 Ordered By: Luzmaria Barnett
--- NOTE | 2025-02-20 11:11 | PC.NURSE ---
Pt is doing well this morning. VSS. Pain is well controlled with rest, prn medication and ice. Pt is tolerating oral intake and ambulating independently. Surgical dressing remains clean, dry and intact. Pt discharge instructions were reviewed, no further questions or concerns at this time. Pt discharged home via mother at 1050.
== END 2025-02-20 10:50 | disposition home or self-care (01) ==
LOC: OR 07:30 → MEDSURG 07:32
PROVIDERS: Anesthesiology; PCP Family Medicine; Visit Provider Surgery
PROC: (CPT 60220; principal; 2025-02-19 08:45)
DX: C73 Malignant neoplasm of thyroid gland (principal)
CPT/HCPCS: 60220; 00320; 36415; 76998; 80048; 81025; 82310; 83970; A9270; J0330; J0690; J0780; J1100; J1171; J2250; J2405; J2704; J3010; J7120

== ENCOUNTER 2025-03-04 10:03 | Outpatient (CLI) | payer OTHER, SELFPAY | END 2025-03-04 10:04 | disposition home or self-care (01) | PROVIDERS: PCP Family Medicine; Visit Provider Surgery | DX: Z98.890 Other specified postprocedural states (principal); Z90.89 Acquired absence of other organs | CPT/HCPCS: 82310 ==